=== PATIENT | male | born 1940 | race Caucasian/White ===

== ENCOUNTER → 2017-06-29 | Outpatient (CLI) | payer MEDICARE ==
[2017-06-29 08:16] LABS: Basophils # (A) 0.1 k/uL (0-0.2); Basophils % (A) 1 %; CH 31.1; CHCM 33.1; Eosinophils # (A) 0.3 k/uL (0-0.7); Eosinophils % (A) 4 %; HCT 48.9 % (39.0-53.0); HDW 2.58; HGB 16.4 gm/dL (13.0-17.5); Luc # (Auto) 0.15; Luc % (Auto) 2; Lymphocytes # (A) 1.9 k/uL (1.0-4.8); Lymphocytes % (A) 24 %; MCH 31.8 pg (25.0-35.0); MCHC 33.6 g/dL (31.0-37.0); MCV 94.5 fL (80.0-100.0); Monocytes # (A) 0.6 k/uL (0-1.0); Monocytes % (A) 7 %; Neutrophils % (A) 62 %; RBC 5.18 m/uL (4.30-5.90); RDW 14.3 % (11.5-15.5); WBC (Perox) 8.43
[2017-06-29 09:00] LABS: ALT 39 U/L (21-72); AST 22 U/L (17-59); Alkaline Phosphatase 55 U/L (38-126); Anion Gap 10 mmol/L; Blood Urea Nitrogen 20 mg/dL (9-20); Calcium 9.5 mg/dL (8.4-10.2); Carbon Dioxide 28 mmol/L (22-30); Chloride 100 mmol/L (98-107); Cholesterol 138 mg/dL (<200); Glucose 128 mg/dL (74-99); HDL Cholesterol 45 mg/dL (40-60); Non-African American GFR(MDRD) 59 (>60 ml/min/1.73 sqM); Potassium 4.5 mmol/L (3.5-5.1); Sodium 138 mmol/L (137-145); Total Bilirubin 1.2 mg/dL (0.2-1.3); Total Protein 6.9 g/dL (6.3-8.2)
[2017-06-29 11:55] LABS: Hemoglobin A1C 5.9 % (4.2-6.1)
== END | disposition home or self-care (01) ==
LOC: LABWHC1 07:54
PROVIDERS: ATTEND Internal Medicine
DX: E78.5 Hyperlipidemia, unspecified (principal); I10 Essential (primary) hypertension; E11.9 Type 2 diabetes mellitus without complications; E13.9 Other specified diabetes mellitus without complications; N19 Unspecified kidney failure; Z12.5 Encounter for screening for malignant neoplasm of prostate
CPT/HCPCS: 84439; 80061; 80053; 83036; 84443; 85025; 36415; G0103

== ENCOUNTER → 2018-09-26 | Outpatient (CLI) | payer MEDICARE ==
[2018-09-26 10:15] LABS: Anisocytosis Slight; Basophils # (A) 0.1 k/uL (0-0.2); Basophils % (A) 1 %; Eosinophils # (A) 0.2 k/uL (0-0.7); Eosinophils % (A) 3 %; HCT 45.5 % (39.0-53.0); HGB 16.1 gm/dL (13.0-17.5); Lymphocytes # (A) 1.7 k/uL (1.0-4.8); Lymphocytes % (A) 22 %; MCH 33.9 pg (25.0-35.0); MCHC 35.3 g/dL (31.0-37.0); MCV 96.1 fL (80.0-100.0); Monocytes # (A) 0.6 k/uL (0-1.0); Monocytes % (A) 7 %; Neutrophils # (A) 5.3 k/uL (1.3-7.7); Neutrophils % (A) 66 %; Platelet Count 483 k/uL (150-450); RBC 4.73 m/uL (4.30-5.90)
[2018-09-26 16:03] LABS: Albumin 4.4 g/dL (3.80-4.90); Albumin/Globulin Ratio 2.59 (1.20-2.10); Anion Gap 7.8 mmol/L (4.00-12.00); Calcium 9.9 mg/dL (8.7-10.3); Carbon Dioxide 32.2 mmol/L (21.6-31.8); Globulin 1.7 g/dL (2.1-3.7); LDL Cholesterol,Calculated 75.4 mg/dL (0.0-131.0); Potassium 4.5 mmol/L (3.5-5.5); Total Bilirubin 1.1 mg/dL (0.3-1.2); Total Protein 6.1 g/dL (6.2-8.2); VLDL Calculation 18.6 mg/dL (5.00-40.00)
[2018-09-26 16:11] LABS: T4, Free (Free Thyroxine) 1.2 ng/dL (0.80-1.80)
[2018-09-26 17:28] LABS: Hemoglobin A1C 5.8 % (4.0-6.0)
== END | disposition home or self-care (01) ==
LOC: LABWHC1 08:18
PROVIDERS: ATTEND Internal Medicine
DX: Z00.00 Encounter for general adult medical examination without abnormal findings (principal); E11.9 Type 2 diabetes mellitus without complications; I10 Essential (primary) hypertension
CPT/HCPCS: 84439; 80061; 80053; 84443; 85025; 83036; 36415; G0103

== ENCOUNTER → 2019-10-03 | Outpatient (CLI) | payer MEDICARE ==
[2019-10-03 08:41] LABS: Basophils # (A) 0.1 k/uL (0-0.2); Basophils % (A) 1 %; Eosinophils # (A) 0.3 k/uL (0-0.7); Eosinophils % (A) 4 %; HCT 47.8 % (39.0-53.0); HGB 15.7 gm/dL (13.0-17.5); Lymphocytes % (A) 26 %; MCH 31.3 pg (25.0-35.0); MCHC 32.9 g/dL (31.0-37.0); Mean Platelet Volume 7.8; Monocytes # (A) 0.6 k/uL (0-1.0); Monocytes % (A) 7 %; Neutrophils # (A) 4.6 k/uL (1.3-7.7); Neutrophils % (A) 59 %; Platelet Count 487 k/uL (150-450); RBC 5.03 m/uL (4.30-5.90); RDW 13.4 % (11.5-15.5); WBC 7.7 k/uL (3.8-10.6)
[2019-10-03 16:13] LABS: African American GFR (CKD) 65.8 (60.0-200.0); Albumin 4.6 g/dL (3.80-4.90); Albumin/Globulin Ratio 2.71 (1.60-3.17); Anion Gap 8.4 mmol/L (4.00-12.00); BUN/Creat Ratio 17.5 Ratio (12.00-20.00); Calcium 9.6 mg/dL (8.7-10.3); Carbon Dioxide 30.6 mmol/L (21.6-31.8); Chol/HDL Ratio 2.94; Globulin 1.7 g/dL (1.6-3.3); LDL Cholesterol,Calculated 72.2 mg/dL (0.0-131.0); Non-African American GFR(CKD) 56.8 (60.0-200.0); Potassium 4.1 mmol/L (3.5-5.5); Total Protein 6.3 g/dL (6.2-8.2); VLDL Calculation 18.8 mg/dL (5.00-40.00)
[2019-10-03 16:21] LABS: T4, Free (Free Thyroxine) 1.4 ng/dL (0.80-1.80)
== END | disposition home or self-care (01) ==
LOC: LABWHC1 07:35
PROVIDERS: ATTEND Internal Medicine
DX: I10 Essential (primary) hypertension (principal); E78.5 Hyperlipidemia, unspecified
CPT/HCPCS: 36415; 80053; 80061; 84439; 84443; 85025

== ENCOUNTER → 2021-05-06 | Outpatient (CLI) | payer MEDICARE ==
[2021-05-06 16:34] LABS: Basophils # (A) 0.11 X 10*3/uL (0.00-0.10); Basophils % (A) 1.4 %; Eosinophils # (A) 0.47 X 10*3/uL (0.04-0.35); Eosinophils % (A) 5.9 %; HCT 48.1 % (39.6-50.0); HGB 15.4 g/dL (13.0-17.0); Lymphocytes # (A) 1.95 X 10*3/uL (0.90-5.00); Lymphocytes % (A) 24.3 %; MCH 29.9 pg (27.0-32.0); MCV 93.4 fL (80.0-97.0); Mean Platelet Volume 9.8 fL (9.5-12.2); Monocytes # (A) 0.71 X 10*3/uL (0.20-1.00); Monocytes % (A) 8.8 %; Neutrophils # (A) 4.76 X 10*3/uL (1.80-7.70); Neutrophils % (A) 59.2 %; Platelet Count 502 X 10*3/uL (140-440); RBC 5.15 X 10*6/uL (4.40-5.60); RDW 14.2 % (11.5-14.5); WBC 8.03 X 10*3/uL (4.50-10.00)
[2021-05-06 21:07] LABS: African American GFR (CKD) 58.9 (60.0-200.0); Albumin 4.3 g/dL (3.80-4.90); Albumin/Globulin Ratio 1.95 (1.60-3.17); Anion Gap 9.7 mmol/L (4.00-12.00); BUN/Creat Ratio 16.92 Ratio (12.00-20.00); Calcium 9.5 mg/dL (8.7-10.3); Carbon Dioxide 31.3 mmol/L (21.6-31.8); Chol/HDL Ratio 3.61; Globulin 2.2 g/dL (1.6-3.3); LDL Cholesterol,Calculated 72.6 mg/dL (0.0-131.0); Non-African American GFR(CKD) 50.8 (60.0-200.0); Potassium 4.5 mmol/L (3.5-5.5); Total Bilirubin 0.9 mg/dL (0.3-1.2); Total Protein 6.5 g/dL (6.2-8.2); VLDL Calculation 26.4 mg/dL (5.00-40.00)
[2021-05-06 21:15] LABS: PSA Annual Screen 1.4 ng/mL (0.0-4.0); T4, Free (Free Thyroxine) 1.4 ng/dL (0.80-1.80)
== END | disposition home or self-care (01) ==
LOC: LABWHC1 08:03
PROVIDERS: ATTEND Internal Medicine
DX: Z00.00 Encounter for general adult medical examination without abnormal findings (principal); Z12.5 Encounter for screening for malignant neoplasm of prostate; E78.00 Pure hypercholesterolemia, unspecified; I10 Essential (primary) hypertension; M19.90 Unspecified osteoarthritis, unspecified site; C85.99 Non-Hodgkin lymphoma, unspecified, extranodal and solid organ sites
CPT/HCPCS: 84439; 80061; 80053; 84443; 85025; 36415; G0103

== ENCOUNTER → 2022-05-18 | Outpatient (CLI) | payer MEDICARE ==
[2022-05-18 11:06] LABS: ALT 15 U/L (10-49); AST 18 U/L (14-35); African American GFR (CKD) 58.5 (60.0-200.0); Albumin 4.5 g/dL (3.8-4.9); Albumin/Globulin Ratio 1.96 (1.60-3.17); Alkaline Phosphatase 58 U/L (41-126); BUN/Creat Ratio 14.23 Ratio (12.00-20.00); Blood Urea Nitrogen 18.5 mg/dL (9.0-27.0); Calcium 9.9 mg/dL (8.7-10.3); Carbon Dioxide 29.7 mmol/L (20.0-27.5); Chloride 98 mmol/L (96-109); Chol/HDL Ratio 3.28 Ratio; Globulin 2.3 g/dL (1.6-3.3); Glucose 122 mg/dL (70-110); Non-African American GFR(CKD) 50.5 (60.0-200.0); Potassium 4.6 mmol/L (3.5-5.5); Sodium 139 mmol/L (135-145); Total Protein 6.8 g/dL (6.2-8.2)
[2022-05-18 11:45] LABS: Basophils # (A) 0.13 X 10*3/uL (0.00-0.10); Basophils % (A) 1.5 %; Eosinophils # (A) 0.44 X 10*3/uL (0.04-0.35); Eosinophils % (A) 5.1 %; HCT 47.3 % (39.6-50.0); HGB 15.5 g/dL (13.0-17.0); Immature Grans, Automated 0.3 %; Lymphocytes # (A) 2.09 X 10*3/uL (0.90-5.00); Lymphocytes % (A) 24.2 %; MCH 30.1 pg (27.0-32.0); MCHC 32.8 g/dL (32.0-37.0); MCV 91.8 fL (80.0-97.0); Mean Platelet Volume 9.7 fL (9.5-12.2); Monocytes # (A) 0.87 X 10*3/uL (0.20-1.00); Monocytes % (A) 10.1 %; NRBC Per 100 WBC 0 /100 WBCS (0.0-0.0); Neutrophils # (A) 5.06 X 10*3/uL (1.80-7.70); Neutrophils % (A) 58.8 %; Platelet Count 501 X 10*3/uL (140-440); RBC 5.15 X 10*6/uL (4.40-5.60); RDW 13.7 % (11.5-14.5); WBC 8.62 X 10*3/uL (4.50-10.00)
== END | disposition home or self-care (01) ==
LOC: LABWHC1 07:21
PROVIDERS: ATTEND Internal Medicine
DX: Z00.00 Encounter for general adult medical examination without abnormal findings (principal); E78.1 Pure hyperglyceridemia; I10 Essential (primary) hypertension
CPT/HCPCS: 36415; 80053; 80061; 84153; 84439; 84443; 85025

== ENCOUNTER → 2022-08-12 | Outpatient (CLI) | payer MEDICARE | END | disposition home or self-care (01) | LOC: LABWHC1 10:21 | PROVIDERS: ATTEND Internal Medicine | DX: M10.9 Gout, unspecified (principal) | CPT/HCPCS: 36415; 84550 ==

== ENCOUNTER 2022-08-22 09:22 | Emergency (ER) | payer MEDICARE ==
--- NOTE | 2022-08-22 09:56 | ED ---
Abdominal Pain HPI - General Chief Complaint: Abdominal Pain Stated Complaint: constipation Time Seen by Provider: 08/22/22 09:39 Source: patient, RN notes reviewed Mode of arrival: ambulatory Limitations: no limitations - History of Present Illness Initial Comments: This is a 82-year-old male presenting to the ER with chief complaint of constipation. He reports he hasn't had a bowel movement in the past 7 days. He has tried taking laxative no success. He admits to passing gas and a normal appetite. He admits to taking Tylenol for his gout flare up. Denies fevers, chills, or nigthsweats. - Related Data Home Medications Medication Instructions Recorded Confirmed Aspirin 81 mg PO DAILY 02/20/14 02/24/14 Atenolol 50 mg PO BID 02/20/14 02/24/14 Pantoprazole Sodium [Protonix] 40 mg PO DAILY 02/20/14 02/24/14 Simvastatin [Zocor] 80 mg PO HS 02/20/14 02/24/14 Telmisartan/Hydrochlorothiazid 1 each PO DAILY 02/20/14 02/24/14 [Micardis Hct 80-25 mg Tablet] hydrALAZINE HCL [Apresoline] 25 mg PO DAILY 02/20/14 02/24/14 hydroCHLOROthiazide [Hydrodiuril] 25 mg PO DAILY 02/20/14 02/24/14 Allergies Allergy/AdvReac Type Severity Reaction Status Date / Time No Known Allergies Allergy Verified 08/22/22 09:32 Review of Systems ROS Statement: Those systems with pertinent positive or pertinent negative responses have been documented in the HPI. ROS Other: All systems not noted in ROS Statement are negative. Past Medical History Past Medical History: Cancer, COPD, GERD/Reflux, Hyperlipidemia, Hypertension, Prostate Disorder Additional Past Medical History / Comment(s): gout History of Any Multi-Drug Resistant Organisms: None Reported Past Surgical History: Heart Catheterization Past Anesthesia/Blood Transfusion Reactions: No Reported Reaction Past Psychological History: No Psychological Hx Reported Smoking Status: Former smoker Past Alcohol Use History: Occasional Past Drug Use History: None Reported General Exam Limitations: no limitations General appearance: alert, in no apparent distress Respiratory exam: Present: normal lung sounds bilaterally. Absent: respiratory distress, wheezes, rales, rhonchi, stridor Cardiovascular Exam: Present: regular rate, normal rhythm, normal heart sounds. Absent: systolic murmur, diastolic murmur, rubs, gallop, clicks GI/Abdominal exam: Present: soft, normal bowel sounds. Absent: distended, tenderness, guarding, rebound, rigid Neurological exam: Present: alert, oriented X3, CN II-XII intact Psychiatric exam: Present: normal affect, normal mood Course Vital Signs 08/22/22 09:24 Temperature 97.0 F L Pulse Rate 87 Respiratory 18 Rate Blood Pressure 175/91 O2 Sat by Pulse 95 Oximetry Medical Decision Making - Medical Decision Making 7-year-old presented from for abdominal issues in which she states is constipated he has no associated pain fevers chills or any other such complaints x-ray shows mild stool patient offered enema here to see if it would help patient states he read as "home and try something that is not very concerned. Again the abdomen is soft nontender will be discharged in stable condition. Disposition Clinical Impression: Constipation Disposition: HOME SELF-CARE Condition: Stable Instructions (If sedation given, give patient instructions): Constipation (ED) Additional Instructions: Please return to the Emergency Department if symptoms worsen or any other concerns. Is patient prescribed a controlled substance at d/c from ED?: No Referrals: None,Stated [REFERRING] - 1-2 days Time of Disposition: 11:10
--- NOTE | 2022-08-22 11:05 | XR ---
EXAMINATION TYPE: XR KUB DATE OF EXAM: 08/22/2022 10:18 AM INDICATION: Patient age:Male; 82 years old; Reason for study: Constipation; COMPARISON: None. TECHNIQUE: One radiographic view of the abdomen was obtained. FINDINGS: The bowel gas pattern is nonspecific without dilated loops of small or large bowel. The o sseous structures are intact. No abnormal calcifications are present. Fecal material and gas are dem onstrated throughout the colon and rectum. Multilevel disc degeneration changes throughout the spine . Stool seen within the rectum. IMPRESSION: Nonspecific bowel gas pattern without radiographic evidence for acute process.
[2022-08-22] MEDS ORDERED: NA PHOS,M-B/NA PHOS,DI-BA 133 ML ENEMA RECTAL STA (11:09)
[2022-08-22 11:27] VITALS: BP 128/78; PULSE 78; RESP 16; TEMP 98.2
== END 2022-08-22 11:25 | disposition home or self-care (01) ==
LOC: EC 09:22
DX: K59.00 Constipation, unspecified (principal); J44.9 Chronic obstructive pulmonary disease, unspecified; K21.9 Gastro-esophageal reflux disease without esophagitis; E78.5 Hyperlipidemia, unspecified; I10 Essential (primary) hypertension; Z87.891 Personal history of nicotine dependence; Z79.82 Long term (current) use of aspirin
CPT/HCPCS: 74018; 99284

== ENCOUNTER 2022-09-02 08:17 | Emergency (ER) | payer MEDICARE ==
[2022-09-02 08:24] VITALS: TEMP 97.7
[2022-09-02] MEDS ORDERED: SODIUM CHLORIDE 0.9% 500 ML 500 ML IV STA (08:31)
--- NOTE | 2022-09-02 08:48 | ED ---
Weakness HPI - General Chief complaint: Weakness Stated complaint: weakness Time Seen by Provider: 09/02/22 08:27 Source: patient, RN notes reviewed Mode of arrival: ambulatory Limitations: no limitations - History of Present Illness Initial comments: 82-year-old male presents emergency Department chief complaint of generalized weakness. Patient states she's not fell over the last several weeks. He states initially started with some feet pain, swelling his feet and which causes PCP for gout medication. Patient is to take up to weeks the neck help. He states he slowly developed constipation with decreased oral intake he states that he is a more weak at times. Patient states he was seen in the ER for constipation did receive Fleet enema which of this did help and he felt better for a few days but states he can has worsening symptoms. He denies any medication changes denies any chest pain shortness of breath headache dizziness at this time. - Related Data Home Medications Medication Instructions Recorded Confirmed Aspirin 81 mg PO DAILY 02/20/14 02/24/14 Atenolol 50 mg PO BID 02/20/14 02/24/14 Pantoprazole Sodium [Protonix] 40 mg PO DAILY 02/20/14 02/24/14 Simvastatin [Zocor] 80 mg PO HS 02/20/14 02/24/14 Telmisartan/Hydrochlorothiazid 1 each PO DAILY 02/20/14 02/24/14 [Micardis Hct 80-25 mg Tablet] hydrALAZINE HCL [Apresoline] 25 mg PO DAILY 02/20/14 02/24/14 hydroCHLOROthiazide [Hydrodiuril] 25 mg PO DAILY 02/20/14 02/24/14 Previous Rx's Medication Instructions Recorded Sennosides-Docusate Sodium 1 tab PO BID #20 tablet 09/02/22 [Senokot-S] Allergies Allergy/AdvReac Type Severity Reaction Status Date / Time No Known Allergies Allergy Verified 09/02/22 08:23 Review of Systems ROS Statement: Those systems with pertinent positive or pertinent negative responses have been documented in the HPI. ROS Other: All systems not noted in ROS Statement are negative. Past Medical History Past Medical History: Cancer, COPD, GERD/Reflux, Hyperlipidemia, Hypertension, Prostate Disorder Additional Past Medical History / Comment(s): gout History of Any Multi-Drug Resistant Organisms: None Reported Past Surgical History: Heart Catheterization Past Anesthesia/Blood Transfusion Reactions: No Reported Reaction Past Psychological History: No Psychological Hx Reported Smoking Status: Former smoker Past Alcohol Use History: Occasional Past Drug Use History: None Reported General Exam Limitations: no limitations General appearance: alert, in no apparent distress Head exam: Present: atraumatic, normocephalic, normal inspection Eye exam: Present: normal appearance, PERRL, EOMI. Absent: scleral icterus, conjunctival injection, periorbital swelling ENT exam: Present: normal exam, normal oropharynx, mucous membranes moist Neck exam: Present: normal inspection, full ROM. Absent: tenderness, meningismus, lymphadenopathy Respiratory exam: Present: normal lung sounds bilaterally. Absent: respiratory distress, wheezes, rales, rhonchi, stridor Cardiovascular Exam: Present: regular rate, normal rhythm, normal heart sounds. Absent: systolic murmur, diastolic murmur, rubs, gallop, clicks GI/Abdominal exam: Present: soft, normal bowel sounds. Absent: distended, tenderness, guarding, rebound, rigid Course Vital Signs 09/02/22 09/02/22 09/02/22 08:19 09:36 09:46 Temperature 97.7 F Pulse Rate 74 74 67 Respiratory 18 18 20 Rate Blood Pressure 146/87 182/97 O2 Sat by Pulse 97 98 98 Oximetry EKG Findings - EKG Comments: EKG Findings:: EKG performed at 8:46 sinus rhythm first-degree AV block with a rate of 71 PR226 QRS 14 QT/QTC 427/450 - EKG Results: EKG: interpreted by ERMD Medical Decision Making - Medical Decision Making CT shows large hiatal hernia with some thickening recommends EGD, labs reveal mild high blood magnesium and magnesium was given. Patient does have some mild constipation. Patient advised to follow-up with EGD, take oral magnesium, provided softener laxative return parameters were discussed. - Lab Data Result diagrams: 09/02/22 08:50 09/02/22 08:50 Lab Results 09/02/22 09/02/22 09/02/22 Range/Units 08:50 08:50 08:50 WBC 10.4 (3.8-10.6) k/uL RBC 4.99 (4.30-5.90) m/uL Hgb 15.7 (13.0-17.5) gm/dL Hct 45.2 (39.0-53.0) % MCV 90.6 (80.0-100.0) fL MCH 31.4 (25.0-35.0) pg MCHC 34.7 (31.0-37.0) g/dL RDW 13.7 (11.5-15.5) % Plt Count 590 H (150-450) k/uL MPV 7.6 Neutrophils % 79 % Lymphocytes % 11 % Monocytes % 7 % Eosinophils % 1 % Basophils % 0 % Neutrophils # 8.2 H (1.3-7.7) k/uL Lymphocytes # 1.2 (1.0-4.8) k/uL Monocytes # 0.8 (0-1.0) k/uL Eosinophils # 0.1 (0-0.7) k/uL Basophils # 0.1 (0-0.2) k/uL PT 12.1 H (9.0-12.0) sec INR 1.1 (<1.2) APTT 27.8 (22.0-30.0) sec Sodium 132 L (137-145) mmol/L Potassium 4.0 (3.5-5.1) mmol/L Chloride 96 L (98-107) mmol/L Carbon Dioxide 26 (22-30) mmol/L Anion Gap 10 mmol/L BUN 20 (9-20) mg/dL Creatinine 1.26 H (0.66-1.25) mg/dL Est GFR (CKD-EPI)AfAm 61 (>60 ml/min/1.73 sqM) Est GFR (CKD-EPI)NonAf 52 (>60 ml/min/1.73 sqM) Glucose 148 H (74-99) mg/dL Plasma Lactic Acid Nikhil (0.7-2.0) mmol/L Calcium 8.9 (8.4-10.2) mg/dL Magnesium 1.3 L (1.6-2.3) mg/dL Total Bilirubin 1.2 (0.2-1.3) mg/dL AST 32 (17-59) U/L ALT 30 (4-49) U/L Alkaline Phosphatase 126 (38-126) U/L Troponin I (0.000-0.034) ng/mL Total Protein 6.5 (6.3-8.2) g/dL Albumin 4.2 (3.5-5.0) g/dL Urine Color Urine Appearance (Clear) Urine pH (5.0-8.0) Ur Specific [place] (1.001-1.035) Urine Protein (Negative) Urine Glucose (UA) (Negative) Urine Ketones (Negative) Urine Blood (Negative) Urine Nitrite (Negative) Urine Bilirubin (Negative) Urine Urobilinogen (<2.0) mg/dL Ur Leukocyte Esterase (Negative) 09/02/22 09/02/22 09/02/22 Range/Units 08:50 08:50 10:20 WBC (3.8-10.6) k/uL RBC (4.30-5.90) m/uL Hgb (13.0-17.5) gm/dL Hct (39.0-53.0) % MCV (80.0-100.0) fL MCH (25.0-35.0) pg MCHC (31.0-37.0) g/dL RDW (11.5-15.5) % Plt Count (150-450) k/uL MPV Neutrophils % % Lymphocytes % % Monocytes % % Eosinophils % % Basophils % % Neutrophils # (1.3-7.7) k/uL Lymphocytes # (1.0-4.8) k/uL Monocytes # (0-1.0) k/uL Eosinophils # (0-0.7) k/uL Basophils # (0-0.2) k/uL PT (9.0-12.0) sec INR (<1.2) APTT (22.0-30.0) sec Sodium (137-145) mmol/L Potassium (3.5-5.1) mmol/L Chloride (98-107) mmol/L Carbon Dioxide (22-30) mmol/L Anion Gap mmol/L BUN (9-20) mg/dL Creatinine (0.66-1.25) mg/dL Est GFR (CKD-EPI)AfAm (>60 ml/min/1.73 sqM) Est GFR (CKD-EPI)NonAf (>60 ml/min/1.73 sqM) Glucose (74-99) mg/dL Plasma Lactic Acid Nikhil 1.5 (0.7-2.0) mmol/L Calcium (8.4-10.2) mg/dL Magnesium (1.6-2.3) mg/dL Total Bilirubin (0.2-1.3) mg/dL AST (17-59) U/L ALT (4-49) U/L Alkaline Phosphatase (38-126) U/L Troponin I <0.012 (0.000-0.034) ng/mL Total Protein (6.3-8.2) g/dL Albumin (3.5-5.0) g/dL Urine Color Yellow Urine Appearance Clear (Clear) Urine pH 6.5 (5.0-8.0) Ur Specific [place] 1.017 (1.001-1.035) Urine Protein Trace H (Negative) Urine Glucose (UA) Negative (Negative) Urine Ketones Negative (Negative) Urine Blood Negative (Negative) Urine Nitrite Negative (Negative) Urine Bilirubin Negative (Negative) Urine Urobilinogen 2.0 (<2.0) mg/dL Ur Leukocyte Esterase Negative (Negative) Disposition Clinical Impression: Constipation, Hiatal hernia, Hypomagnesemia, Fatigue Disposition: HOME SELF-CARE Condition: Stable Instructions (If sedation given, give patient instructions): Hiatal Hernia (ED) Additional Instructions: please follow-up with GI or surgery for EGD. Please return to the Emergency Department if symptoms worsen or any other concerns. Prescriptions: Sennosides-Docusate Sodium [Senokot-S] 1 tab PO BID #20 tablet Is patient prescribed a controlled substance at d/c from ED?: No Referrals: Olive Cardoza MD [Primary Care Provider] - 1-2 days Saeid Hillman MD [STAFF PHYSICIAN] - 1-2 days Jojo Mann MD [STAFF PHYSICIAN] - 1-2 days Time of Disposition: 11:13
[2022-09-02 09:00] LABS: Basophils # (A) 0.1 k/uL (0-0.2); Basophils % (A) 0 %; Eosinophils # (A) 0.1 k/uL (0-0.7); Eosinophils % (A) 1 %; HCT 45.2 % (39.0-53.0); HGB 15.7 gm/dL (13.0-17.5); Lymphocytes # (A) 1.2 k/uL (1.0-4.8); Lymphocytes % (A) 11 %; MCH 31.4 pg (25.0-35.0); MCHC 34.7 g/dL (31.0-37.0); MCV 90.6 fL (80.0-100.0); Mean Platelet Volume 7.6; Monocytes # (A) 0.8 k/uL (0-1.0); Monocytes % (A) 7 %; Neutrophils # (A) 8.2 k/uL (1.3-7.7); Neutrophils % (A) 79 %; Platelet Count 590 k/uL (150-450); RBC 4.99 m/uL (4.30-5.90); RDW 13.7 % (11.5-15.5); WBC 10.4 k/uL (3.8-10.6)
[2022-09-02 09:08] LABS: INR 1.1 (<1.2); Partial Thromboplastin Time 27.8 sec (22.0-30.0); Prothrombin Time 12.1 sec (9.0-12.0)
[2022-09-02 09:14] LABS: Albumin 4.2 g/dL (3.5-5.0); Calcium 8.9 mg/dL (8.4-10.2); Magnesium 1.3 mg/dL (1.6-2.3); Total Bilirubin 1.2 mg/dL (0.2-1.3); Total Protein 6.5 g/dL (6.3-8.2)
[2022-09-02] MEDS ORDERED: MAGNESIUM OXIDE 400 MG TAB PO STA (09:24)
--- NOTE | 2022-09-02 09:40 | CT ---
EXAMINATION TYPE: CT abdomen pelvis wo con DATE OF EXAM: 09/02/2022 COMPARISON: Radiograph 08/22/2022 and PET/CT 09/12/2014 HISTORY: 82-year-old male patient, Weakness, Constipation x [address] DLP: 713.7 mGycm. Automated exposure control for dose reduction was used. TECHNIQUE: Contiguous axial scanning of the abdomen and pelvis without IV contrast. Coronal and sagit fredy reconstructions performed. FINDINGS: Heart with mild anterior pericardial fluid. Extensive coronary artery calcifications are present and aren't markers for coronary artery disease. 6 mm nodule at the right base unchanged from 2014 suggesting benign etiology. Mild interstitial albright es of the lower lungs could represent atelectasis or mild fibrosis. Redemonstrated large hiatal hernia. This involves three fourths of the stomach in the lower chest. Ei ther mural-based thickening or prominent redundancy of the gastric wall giving the appearance of wall thickening, for example, axial image 1. Mildly lobulated benign cyst mid hepatic dome measuring up to 4.0 cm. Some calcifications and/or surg ical material in the gallbladder fossa region is similar. Adrenal glands, atrophic right kidney, spleen, and atrophic pancreas show no gross abnormality. A 1.6 cm cortical hypodensity anterior mid to lower pole left kidney is larger from 9 mm, previously. Suspect a benign cyst. A 1.3 cm cortical hypodensity lower pole left kidney larger from 1.1 cm, susp ected benign cyst. There is some indeterminate intermediate attenuating cortical lesion lower pole le ft kidney measuring 1.1 cm. This may represent a hemorrhagic or proteinaceous cyst, new from 2014 and can be reassessed in 6 months. Moderate atherosclerotic calcifications abdominal aorta and iliac arteries. Moderate to severe focal stenosis origin of the right common iliac artery. Severe focal stenosis origin of the left common cinda ac artery. 1 No dilated small bowel, free fluid, or free air. No mesenteric or retroperitoneal lymphadenopathy see n. Appendix not well seen. No secondary findings of acute appendicitis in the right lower quadrant. There is mild to moderate stool burden. Left-sided colonic diverticulosis, greatest in the sigmoid co brice. No pericolonic inflammatory change seen. Bladder partially distended. The prostate gland is enlarged at 6.0 cm, relatively unchanged. Left-margarita ed pelvic phlebolith. There is a new small to moderate-sized fat-containing direct right inguinal her solomon measuring 4.5 x 5.1 cm. Otherwise, no abnormal fluid collection in the pelvis or pelvic lymphaden opathy. 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 Moderate degenerative disc disease L4-L5. Mild sup erior endplate deformity L2 is age indeterminate, likely chronic given the lack of any surrounding sw elling. Correlate for any focal pain at this level. IMPRESSION: 1. Redemonstrated large hiatal hernia involving three fourths of the stomach in the lower chest. The re is either mural-based thickening versus prominent redundancy of the gastric wall giving the appear ance of masslike thickening (axial image 1). Correlate with patient's symptoms and consider direct vi sualization to exclude a neoplastic etiology. 2. Cortical lesions within the left kidney, some of which represent cysts increased in size from 201 4 and measuring up to 1.6 cm. A 1.1 cm indeterminate lesion at the left lower pole could represent a hemorrhagic/proteinaceous cyst. New from 2013. 6 month follow-up CT to ensure stability. 3. Mild to moderate stool burden. Left-sided clonic diverticulosis, greatest in the sigmoid colon. N o evidence for bowel obstruction or acute diverticulitis. 4. New [id number] sized right-sided direct inguinal hernia containing fat. 5. Atherosclerotic calcifications abdominal aorta and iliac arteries. 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 6. Redemonstrated bilateral L5 pars defects with grade 2, nearly grade 3 anterolisthesis of L5-S1.
[2022-09-02 09:47] VITALS: PULSE 67
[2022-09-02 10:46] LABS: Appearance,Urine Clear (Clear); Bilirubin,Urine Negative (Negative); Blood,Urine Negative (Negative); Color,Urine Yellow; Glucose,Urine (UA) Negative (Negative); Ketones,Urine Negative (Negative); Leukocyte Esterase,Urine Negative (Negative); Nitrite,Urine Negative (Negative); PH, Urine 6.5 (5.0-8.0); Protein,Urine Trace (Negative); Specific Gravity,Urine 1.017 (1.001-1.035)
[2022-09-02 11:37] VITALS: BP 176/90; RESP 18
[2022-09-02 16:32] LABS: T4, Free (Free Thyroxine) 1.47 ng/dL (0.78-2.19)
== END 2022-09-02 11:37 | disposition home or self-care (01) ==
LOC: EC 08:17
DX: K44.9 Diaphragmatic hernia without obstruction or gangrene (principal); E83.42 Hypomagnesemia; J44.9 Chronic obstructive pulmonary disease, unspecified; K21.9 Gastro-esophageal reflux disease without esophagitis; I10 Essential (primary) hypertension; E78.5 Hyperlipidemia, unspecified; Z87.891 Personal history of nicotine dependence; Z79.82 Long term (current) use of aspirin; Z79.83 Long term (current) use of bisphosphonates; Z79.810 Long term (current) use of selective estrogen receptor modulators (SERMs); Z79.02 Long term (current) use of antithrombotics/antiplatelets; Z79.84 Long term (current) use of oral hypoglycemic drugs
CPT/HCPCS: 36415; 74176; 80053; 81003; 83605; 83735; 84439; 84443; 84484; 85025; 85610; 85730; 93005; 96360; 96361; 99285

== ENCOUNTER 2022-09-11 08:44 | Emergency (ER) | payer MEDICARE ==
[2022-09-11 08:59] VITALS: BP 149/84; PULSE 70; TEMP 96
--- NOTE | 2022-09-11 09:50 | ED ---
General Adult HPI - General Chief complaint: Recheck/Abnormal Lab/Rx Stated complaint: Loss of Appetite,Weakness Time Seen by Provider: 09/11/22 09:06 Source: patient Mode of arrival: ambulatory Limitations: no limitations - History of Present Illness Initial comments: Dictation was produced using [employer] dictation software. please excuse any gramma tical, word or spelling errors. Chief Complaint: 82-year-old male presents emergency department for constipation generalized weakness History of Present Illness: Is 82-year-old male who presented to the emergency department last week for the same complaint. He had extensive workup and ultimately ended up being discharged. Patient states that he has very abnormal bowel movements and doesn't have a bowel movement as well as he takes laxative medications. Patient also feeling generally weak. Patient has a boil with his primary care doctor however was unable to weight 3 more days for the appointment. Patient denies any constitutional symptoms. The ROS documented in this emergency department record has been reviewed and confirmed by me. Those systems with pertinent positive or negative responses have been documented in the HPI. All other systems are other negative and/or noncontributory. PHYSICAL EXAM: General Impression: Alert and oriented x3, not in acute distress HEENT: Normocephalic atraumatic, extra-ocular movements intact, pupils equal and reactive to light bilaterally, mucous membranes moist. Cardiovascular: Heart regular rate and rhythm Chest: Able to complete full sentences, no retractions, no tachypnea Abdomen: abdomen soft, non-tender, non-distended, no organomegaly Musculoskeletal: Pulses present and equal in all extremities, no peripheral edema Motor: no focal deficits noted Neurological: CN II-XII 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, no focal motor or sensory deficits noted Skin: Intact with no visualized rashes Psych: Normal affect and mood ED course: 82-year-old well-appearing male presents emergency department for generalized weakness and reported constipation. He states that he had a bowel movement within the last 24 hours after having taken laxative pills. Physical examination is benign. Nursing notes and chart review was performed Laboratory evaluation obtained. CBC unremarkable. Sodium shows mild decrease at 1:30. Urinalysis is negative. 4 panel viral PCR is negative. Acute abdominal series shows nonspecific abdominal changes. X-ray was suspicious for pneumothorax. Computed tomography scan of the chest ordered showing no pneumot horax. Patient observed in the emergency department for 3 hours and 30 minutes. Reevaluated at bedside at 12:15 PM onto be in stable medical condition. Patient be discharged. My EKG interpretation: Ventricular rate 62, sinus rhythm,. O2 47, QS 105, QTc 446. No ND prolongation, no QTC prolongation, no ST or T-wave changes noted. EKG compared to 09/02/2022 showing no changes. Overall, this EKG is unremarkable Critical Care: no Critical Care time: n/a - Related Data Home Medications Medication Instructions Recorded Confirmed Aspirin 81 mg PO DAILY 02/20/14 09/11/22 Atenolol 50 mg PO BID 02/20/14 09/11/22 Pantoprazole Sodium [Protonix] 40 mg PO BID 02/20/14 09/11/22 Simvastatin [Zocor] 80 mg PO HS 02/20/14 09/11/22 hydrALAZINE HCL [Apresoline] 25 mg PO TID 02/20/14 09/11/22 hydroCHLOROthiazide [Hydrodiuril] 25 mg PO DAILY 02/20/14 09/11/22 Acetaminophen Tab [Tylenol Tab] 500 - 1,000 mg PO Q6H PRN 09/11/22 09/11/22 Losartan Potassium [Cozaar] 100 mg PO DAILY 09/11/22 09/11/22 Multivit-Min/FA/Lycopen/Lutein 1 tab PO DAILY 09/11/22 09/11/22 [Centrum Silver Men Tablet] Sennosides [Ex-Lax Maximum 25 - 50 mg PO BID PRN 09/11/22 09/11/22 Strength] Vit C/E/Zn/Coppr/Lutein/Zeaxan 1 cap PO DAILY 09/11/22 09/11/22 [Preservision Areds 2 Softgel] Allergies Allergy/AdvReac Type Severity Reaction Status Date / Time No Known Allergies Allergy Verified 09/11/22 11:17 Review of Systems ROS Statement: Those systems with pertinent positive or pertinent negative responses have been documented in the HPI. ROS Other: All systems not noted in ROS Statement are negative. Past Medical History Past Medical History: Cancer, COPD, GERD/Reflux, Hyperlipidemia, Hypertension, Prostate Disorder Additional Past Medical History / Comment(s): gout History of Any Multi-Drug Resistant Organisms: None Reported Past Surgical History: Heart Catheterization Past Anesthesia/Blood Transfusion Reactions: No Reported Reaction Past Psychological History: No Psychological Hx Reported Smoking Status: Former smoker Past Alcohol Use History: Occasional Past Drug Use History: None Reported General Exam Limitations: no limitations Course Vital Signs 09/11/22 08:56 Temperature 96 F L Pulse Rate 70 Respiratory 18 Rate Blood Pressure 149/84 O2 Sat by Pulse 98 Oximetry Medical Decision Making - Medical Decision Making Patient states that he is too weak to go home however she is well-appearing and does not show any signs of significant weakness. Patient requests to be evaluated for [facility] or [facility] placement. Susie who is our sample case porter nurse will help arrange evaluation for home care to be evaluated for nursing home facility or [facility]. - Lab Data Result diagrams: 09/11/22 09:40 09/11/22 09:40 Lab Results 09/11/22 09/11/22 09/11/22 Range/Units 09:40 09:40 09:40 WBC 9.5 (3.8-10.6) k/uL RBC 4.93 (4.30-5.90) m/uL Hgb 15.3 (13.0-17.5) gm/dL Hct 44.5 (39.0-53.0) % MCV 90.3 (80.0-100.0) fL MCH 31.1 (25.0-35.0) pg MCHC 34.4 (31.0-37.0) g/dL RDW 13.8 (11.5-15.5) % Plt Count 596 H (150-450) k/uL MPV 7.8 Neutrophils % 72 % Lymphocytes % 17 % Monocytes % 7 % Eosinophils % 1 % Basophils % 1 % Neutrophils # 6.8 (1.3-7.7) k/uL Lymphocytes # 1.6 (1.0-4.8) k/uL Monocytes # 0.7 (0-1.0) k/uL Eosinophils # 0.1 (0-0.7) k/uL Basophils # 0.1 (0-0.2) k/uL Sodium 130 L (137-145) mmol/L Potassium 3.9 (3.5-5.1) mmol/L Chloride 94 L (98-107) mmol/L Carbon Dioxide 28 (22-30) mmol/L Anion Gap 8 mmol/L BUN 23 H (9-20) mg/dL Creatinine 1.27 H (0.66-1.25) mg/dL Est GFR (CKD-EPI)AfAm 60 (>60 ml/min/1.73 sqM) Est GFR (CKD-EPI)NonAf 52 (>60 ml/min/1.73 sqM) Glucose 147 H (74-99) mg/dL Plasma Lactic Acid Nikhil 1.4 (0.7-2.0) mmol/L Calcium 9.3 (8.4-10.2) mg/dL Magnesium 1.7 (1.6-2.3) mg/dL Total Bilirubin 1.1 (0.2-1.3) mg/dL AST 31 (17-59) U/L ALT 29 (4-49) U/L Alkaline Phosphatase 110 (38-126) U/L Total Protein 6.5 (6.3-8.2) g/dL Albumin 4.2 (3.5-5.0) g/dL Urine Color Urine Appearance (Clear) Urine pH (5.0-8.0) Ur Specific [place] (1.001-1.035) Urine Protein (Negative) Urine Glucose (UA) (Negative) Urine Ketones (Negative) Urine Blood (Negative) Urine Nitrite (Negative) Urine Bilirubin (Negative) Urine Urobilinogen (<2.0) mg/dL Ur Leukocyte Esterase (Negative) Influenza Type A (PCR) (Not Detectd) Influenza Type B (PCR) (Not Detectd) RSV (PCR) (Not Detectd) SARS-CoV-2 (PCR) (Not Detectd) 09/11/22 09/11/22 Range/Units 09:40 10:39 WBC (3.8-10.6) k/uL RBC (4.30-5.90) m/uL Hgb (13.0-17.5) gm/dL Hct (39.0-53.0) % MCV (80.0-100.0) fL MCH (25.0-35.0) pg MCHC (31.0-37.0) g/dL RDW (11.5-15.5) % Plt Count (150-450) k/uL MPV Neutrophils % % Lymphocytes % % Monocytes % % Eosinophils % % Basophils % % Neutrophils # (1.3-7.7) k/uL Lymphocytes # (1.0-4.8) k/uL Monocytes # (0-1.0) k/uL Eosinophils # (0-0.7) k/uL Basophils # (0-0.2) k/uL Sodium (137-145) mmol/L Potassium (3.5-5.1) mmol/L Chloride (98-107) mmol/L Carbon Dioxide (22-30) mmol/L Anion Gap mmol/L BUN (9-20) mg/dL Creatinine (0.66-1.25) mg/dL Est GFR (CKD-EPI)AfAm (>60 ml/min/1.73 sqM) Est GFR (CKD-EPI)NonAf (>60 ml/min/1.73 sqM) Glucose (74-99) mg/dL Plasma Lactic Acid Nikhil (0.7-2.0) mmol/L Calcium (8.4-10.2) mg/dL Magnesium (1.6-2.3) mg/dL Total Bilirubin (0.2-1.3) mg/dL AST (17-59) U/L ALT (4-49) U/L Alkaline Phosphatase (38-126) U/L Total Protein (6.3-8.2) g/dL Albumin (3.5-5.0) g/dL Urine Color Yellow Urine Appearance Clear (Clear) Urine pH 6.5 (5.0-8.0) Ur Specific [place] 1.017 (1.001-1.035) Urine Protein Trace H (Negative) Urine Glucose (UA) Negative (Negative) Urine Ketones Negative (Negative) Urine Blood Negative (Negative) Urine Nitrite Negative (Negative) Urine Bilirubin Negative (Negative) Urine Urobilinogen 2.0 (<2.0) mg/dL Ur Leukocyte Esterase Negative (Negative) Influenza Type A (PCR) Not Detected (Not Detectd) Influenza Type B (PCR) Not Detected (Not Detectd) RSV (PCR) Not Detected (Not Detectd) SARS-CoV-2 (PCR) Not Detected (Not Detectd) Disposition Clinical Impression: Weakness Disposition: HOME SELF-CARE Condition: Good Instructions (If sedation given, give patient instructions): Weakness (ED) Is patient prescribed a controlled substance at d/c from ED?: No Referrals: Olive Cardoza MD [Primary Care Provider] - 1-2 days Time of Disposition: 12:20
[2022-09-11 09:51] LABS: Basophils # (A) 0.1 k/uL (0-0.2); Basophils % (A) 1 %; Eosinophils # (A) 0.1 k/uL (0-0.7); Eosinophils % (A) 1 %; HCT 44.5 % (39.0-53.0); HGB 15.3 gm/dL (13.0-17.5); Lymphocytes # (A) 1.6 k/uL (1.0-4.8); Lymphocytes % (A) 17 %; MCH 31.1 pg (25.0-35.0); MCHC 34.4 g/dL (31.0-37.0); MCV 90.3 fL (80.0-100.0); Mean Platelet Volume 7.8; Monocytes # (A) 0.7 k/uL (0-1.0); Monocytes % (A) 7 %; Neutrophils # (A) 6.8 k/uL (1.3-7.7); Neutrophils % (A) 72 %; Platelet Count 596 k/uL (150-450); RBC 4.93 m/uL (4.30-5.90); RDW 13.8 % (11.5-15.5); WBC 9.5 k/uL (3.8-10.6)
[2022-09-11 10:07] LABS: Albumin 4.2 g/dL (3.5-5.0); Calcium 9.3 mg/dL (8.4-10.2); Total Bilirubin 1.1 mg/dL (0.2-1.3); Total Protein 6.5 g/dL (6.3-8.2)
[2022-09-11 10:11] LABS: Magnesium 1.7 mg/dL (1.6-2.3); Potassium 3.9 mmol/L (3.5-5.1)
--- NOTE | 2022-09-11 10:35 | XR ---
EXAMINATION TYPE: XR abdomen acute w cxr DATE OF EXAM: 09/11/2022 COMPARISON: None HISTORY: Change in bowel habits constipation TECHNIQUE: Acute abdominal series is performed with a frontal upright chest upright and supine views of the abdomen. FINDINGS: Heart size is normal. Pulmonary vasculature is normal. Emphysematous changes are especially noted in the right upper lung field. Pneumothorax may be difficult to exclude. Consider follow-up ch est films. No free air is under the diaphragm. No suspicious air-fluid levels or differential air-fluid levels a re within the field of view. Nonspecific bowel gas is present within small bowel loops as well as the colon. No mass effect is evident. No dilated loops of bowel are evident. No significant fecal retent ion identified. Psoas margins are normal. No organomegaly is evident. IMPRESSION: 1. Appears to be emphysematous changes in the right upper lung field. Pneumothorax may be difficult to exclude. Consider follow-up chest studies or CT. Report was called to the emergency room physician by Dr. Evans by telephone 1031 hours 09/11/2022. 2. Nonspecific abdomen changes.
[2022-09-11 10:50] LABS: Appearance,Urine Clear (Clear); Bilirubin,Urine Negative (Negative); Blood,Urine Negative (Negative); Color,Urine Yellow; Glucose,Urine (UA) Negative (Negative); Ketones,Urine Negative (Negative); Leukocyte Esterase,Urine Negative (Negative); Nitrite,Urine Negative (Negative); PH, Urine 6.5 (5.0-8.0); Protein,Urine Trace (Negative); Specific Gravity,Urine 1.017 (1.001-1.035)
[2022-09-11] MEDS ORDERED: SODIUM CHLORIDE 0.9% 1,000 ML IV STA (11:06)
--- NOTE | 2022-09-11 12:04 | CT ---
EXAMINATION TYPE: CT chest wo con DATE OF EXAM: 09/11/2022 COMPARISON: Chest CT September 04, 2014 HISTORY: Evaluated for pneumothorax, abnormal x-ray. CT DLP: 390.4 mGycm. Automated Exposure Control for Dose Reduction was Utilized. TECHNIQUE: CT scan of the thorax is performed without IV contrast. FINDINGS: LUNGS: Advanced emphysematous change in the right upper lung mimicking pneumothorax is redemonstrated . Some crossing lung tissue remains present. No pneumothorax is present. Stable partially calcified 4 .5 x 1.7 cm right midlung mass and/or masslike consolidation axial image 23. Bibasilar linear atelect asis and/or scarring is seen. Stable partially calcified 3.6 x 1.7 cm mass and/or masslike scarring l eft lung apex axial image 5. There is no pleural effusion or pneumothorax seen. The tracheobronchia l tree is patent. MEDIASTINUM: Lack of IV contrast is noted to limit evaluation for mediastinal and especially hilar ad enopathy. There are no definitive greater than 1 cm new mediastinal lymph nodes. No cardiomegaly. S table tiny Pericardial effusion is seen. Severe three-vessel coronary artery calcification is redemon strated. Large hiatal hernia and/or intrathoracic stomach is slightly more prominent from prior CT. OTHER: There is 3.8 cm thin-walled cyst in the liver axial image 57 redemonstrated on background of d iffuse fatty infiltration of liver. Multilevel spurring and vacuum disc phenomenon in the thoracic sp ine is redemonstrated. IMPRESSION: Advanced emphysematous change without pneumothorax. No suspicious new acute pulmonary pro cess.
[2022-09-11 13:00] VITALS: RESP 16
== END 2022-09-11 13:00 | disposition home or self-care (01) ==
LOC: EC 08:44
DX: R53.1 Weakness (principal); J44.9 Chronic obstructive pulmonary disease, unspecified; K21.9 Gastro-esophageal reflux disease without esophagitis; E78.5 Hyperlipidemia, unspecified; I10 Essential (primary) hypertension; Z20.822 Contact with and (suspected) exposure to COVID-19; Z87.891 Personal history of nicotine dependence; Z79.899 Other long term (current) drug therapy
CPT/HCPCS: 36415; 71250; 74022; 80053; 81003; 83605; 83735; 85025; 87636; 93005; 96360; 99285

== ENCOUNTER 2023-03-23 10:29 | Inpatient (IN) | payer MEDICARE ==
[2023-03-23] MEDS ORDERED: MECLIZINE 25 MG TAB PO STA (10:48)
--- NOTE | 2023-03-23 11:14 | ED ---
General Adult HPI - General Chief complaint: Dizziness Stated complaint: dizziness Time Seen by Provider: 03/23/23 10:40 Source: patient, RN notes reviewed, old records reviewed Mode of arrival: ambulatory Limitations: no limitations - History of Present Illness Initial comments: This is an 82-year-old male who presents emergency Department complaining of dizziness for a month. Patient states again progressively worse to the point where he feels like is given a passout and time. Patient states she's never passed out. Patient states he feels as though he has to grab onto something and he does and though he does not pass out he doesn't feel as though it improved his dizziness. Patient states he lies down he never occurs per patient denies any chest pain difficulty breathing shortness of breath. Patient denies any palpations. Patient has a headache patient denies numbness or weakness. Patient denies any other symptoms at this time. Patient initially thought was vertigo but says it continues he's thinking it might be something worse. - Related Data Home Medications Medication Instructions Recorded Confirmed Atenolol 50 mg PO BID@0800,1200 02/20/14 03/23/23 Pantoprazole Sodium [Protonix] 40 mg PO BID 02/20/14 03/23/23 Simvastatin [Zocor] 80 mg PO HS 02/20/14 03/23/23 hydrALAZINE HCL [Apresoline] 25 mg PO BID 02/20/14 03/23/23 hydroCHLOROthiazide [Hydrodiuril] 25 mg PO DAILY 02/20/14 03/23/23 Losartan Potassium [Cozaar] 100 mg PO W/LUNCH 09/11/22 03/23/23 Allergies Allergy/AdvReac Type Severity Reaction Status Date / Time No Known Allergies Allergy Verified 03/23/23 12:40 Review of Systems ROS Statement: Those systems with pertinent positive or pertinent negative responses have been documented in the HPI. ROS Other: All systems not noted in ROS Statement are negative. Past Medical History Past Medical History: Cancer, COPD, GERD/Reflux, Hyperlipidemia, Hypertension, Prostate Disorder Additional Past Medical History / Comment(s): gout History of Any Multi-Drug Resistant Organisms: None Reported Past Surgical History: Heart Catheterization Past Anesthesia/Blood Transfusion Reactions: No Reported Reaction Past Psychological History: No Psychological Hx Reported Smoking Status: Former smoker Past Alcohol Use History: Occasional Past Drug Use History: None Reported General Exam - General Exam Comments Initial Comments: GENERAL: Patient is well-developed and well-nourished. Patient is nontoxic and well- hydrated and is in mild distress. ENT: Neck is soft and supple. No significant lymphadenopathy is noted. Oropharynx is clear. Moist mucous membranes. Neck has full range of motion without eliciting any pain. EYES: The sclera were anicteric and conjunctiva were pink and moist. Extraocular movements were intact and pupils were equal round and reactive to light. Eyelids were unremarkable. PULMONARY: Unlabored respirations. Good breath sounds bilaterally. No audible rales rhonchi or wheezing was noted. CARDIOVASCULAR: There is a regular rate and rhythm without any murmurs gallops or rubs. ABDOMEN: Soft and nontender with normal bowel sounds. SKIN: Skin is clear with no lesions or rashes and otherwise unremarkable. NEUROLOGIC: Patient is alert and oriented x3. Cranial nerves II through XII are 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. Motor and sensory are also intact. Normal speech, volume and content. Symmetrical smile. Finger to nose testing was normal bilaterally MUSCULOSKELETAL: Normal extremities with adequate strength and full range of motion. No lower extremity swelling or edema. No calf tenderness. LYMPHATICS: No significant lymphadenopathy is noted PSYCHIATRIC: Normal psychiatric evaluation. Limitations: no limitations Course Vital Signs 03/23/23 03/23/23 03/23/23 10:30 10:55 12:47 Temperature 98.4 F Pulse Rate 69 64 Respiratory 20 20 Rate Blood Pressure 169/81 203/103 Blood Pressure 174/87 [Right Arm Sitting] Blood Pressure 159/82 [Right Arm Standing] Blood Pressure 167/83 [Right Arm Supine] O2 Sat by Pulse 99 98 Oximetry Medical Decision Making - Medical Decision Making EKG shows a sinus rhythm at 70 bpm MD interval is 264 QRS is 91 QT interval 418 QTC is 439. Patient's EKG shows no ST segment elevation or depression. Was pt. sent in by a medical professional or institution (, PA, TIN WHIZ MACHINE OPERATOR, urgent ca re, hospital, or senior living...) When possible be specific @ -No Did you speak to anyone other than the patient for history (EMS, parent, family, police, friend...)? What history was obtained from this source @ -No Did you review nursing and triage notes (agree or disagree)? Why? @ -I reviewed and agree with nursing and triage notes Were old charts reviewed (outside hosp., previous admission, EMS record, old EKG, old radiological studies, urgent care reports/EKG's, senior living records)? Report findings @ -No old charts were reviewed Differential Diagnosis (chest pain, altered mental status, abdominal pain women, abdominal pain men, vaginal bleeding, weakness, fever, dyspnea, syncope, headache, dizziness, GI bleed, back pain, seizure, CVA, palpatations, mental health, musculoskeletal)? @ -Differential Dizziness: Benign paroxysmal positional Vertigo, Menieres disease, otitis media, acoustic neuroma, vertebrobasilar insufficiency, cerebellar stroke, encephalitis, hypovolemic, arrhythmia, coronary artery syndrome, anemia, this is not meant to be an all-inclusive list EKG interpreted by me (3pts min.). @ -As above X-rays interpreted by me (1pt min.). @ -Chest x-ray showed no acute abnormality. CT interpreted by me (1pt min.). @ -Computed tomography scan shows some air-fluid levels in the mastoid area bilaterally on examination patient had no local tenderness U/S interpreted by me (1pt. min.). @ -None done What testing was considered but not performed or refused? (CT, X-rays, U/S, labs)? Why? @ -None What meds were considered but not given or refused? Why? @ -None Did you discuss the management of the patient with other professionals (professionals i.e. , PA, TIN WHIZ MACHINE OPERATOR, lab, RT, psych nurse, social sciences instructor, loss prevention auditor, teacher, u.s. revenue officer, immigration case worker)? Give summary @ -I spoke with [facility] hospitalist agreed to admit the patient to the patient Was smoking cessation discussed for >3mins.? @ -No Was critical care preformed (if so, how long)? @ -No Were there social determinants of health that impacted care today? How? (Homeles sness, low income, unemployed, alcoholism, drug addiction, transportation, low edu. Level, literacy, decrease access to med. care, correction, rehab)? @ -No Was there de-escalation of care discussed even if they declined (Discuss DNR or withdrawal of care, Hospice)? DNR status @ -No What co-morbidities impacted this encounter? (DM, HTN, Smoking, COPD, CAD, Cancer, CVA, ARF, Chemo, Hep., AIDS, mental health diagnosis, sleep apnea, morbid obesity)? @ -None Was patient admitted / discharged? Hospital course, mention meds given and route, prescriptions, significant lab abnormalities, going to OR and other pertinent info. @ -Patient was not orthostatic positive. Patient was given Antivert and then ambulated he was not successful and ambulating without having to grab onto something he thought he was going to fall over or passout. I spoke [facility] hospitalist agreed to admit the patient admitted the patient wrote admitting orders. Undiagnosed new problem with uncertain prognosis? @ -No Drug Therapy requiring intensive monitoring for toxicity (Heparin, Nitro, Insulin, Cardizem)? @ -No Were any procedures done? @ -No Diagnosis/symptom? @ -Near syncope Acute, or Chronic, or Acute on Chronic? @ -Acute Uncomplicated (without systemic symptoms) or Complicated (systemic symptoms)? @ -Complicated Side effects of treatment? @ -No Exacerbation, Progression, or Severe Exacerbation? @ -No Poses a threat to life or bodily function? How? (Chest pain, [place], [place], pneumonia, PE, COPD, DKA, ARF, appy, cholecystitis, CVA, Diverticulitis, Homicidal, Suicidal, threat to staff... and all critical care pts) @ -Syncope could be related to dysrhythmia which will be monitored while the patient was in the hospital. - Lab Data Result diagrams: 03/23/23 10:58 03/23/23 10:58 Lab Results 03/23/23 03/23/23 03/23/23 Range/Units 10:58 10:58 10:58 WBC 8.7 (3.8-10.6) k/uL RBC 4.55 (4.30-5.90) m/uL Hgb 15.6 (13.0-17.5) gm/dL Hct 42.8 (39.0-53.0) % MCV 94.2 (80.0-100.0) fL MCH 34.4 (25.0-35.0) pg MCHC 36.5 (31.0-37.0) g/dL RDW 14.6 (11.5-15.5) % Plt Count 553 H (150-450) k/uL MPV 7.7 Neutrophils % 65 % Lymphocytes % 23 % Monocytes % 8 % Eosinophils % 2 % Basophils % 1 % Neutrophils # 5.7 (1.3-7.7) k/uL Lymphocytes # 2.0 (1.0-4.8) k/uL Monocytes # 0.7 (0-1.0) k/uL Eosinophils # 0.2 (0-0.7) k/uL Basophils # 0.0 (0-0.2) k/uL Manual Slide Review Performed PT 11.5 (9.0-12.0) sec INR 1.1 (<1.2) APTT 26.1 (22.0-30.0) sec Sodium 136 L (137-145) mmol/L Potassium 4.8 (3.5-5.1) mmol/L Chloride 96 L (98-107) mmol/L Carbon Dioxide 31 H (22-30) mmol/L Anion Gap 9 mmol/L BUN 21 H (9-20) mg/dL Creatinine 1.14 (0.66-1.25) mg/dL Est GFR (CKD-EPI)AfAm 69 (>60 ml/min/1.73 sqM) Est GFR (CKD-EPI)NonAf 60 (>60 ml/min/1.73 sqM) Glucose 105 H (74-99) mg/dL Calcium 9.3 (8.4-10.2) mg/dL Magnesium 1.7 (1.6-2.3) mg/dL Total Bilirubin 1.1 (0.2-1.3) mg/dL AST 23 (17-59) U/L ALT 16 (4-49) U/L Alkaline Phosphatase 50 (38-126) U/L Troponin I (0.000-0.034) ng/mL Total Protein 7.0 (6.3-8.2) g/dL Albumin 4.4 (3.5-5.0) g/dL 03/23/23 Range/Units 10:58 WBC (3.8-10.6) k/uL RBC (4.30-5.90) m/uL Hgb (13.0-17.5) gm/dL Hct (39.0-53.0) % MCV (80.0-100.0) fL MCH (25.0-35.0) pg MCHC (31.0-37.0) g/dL RDW (11.5-15.5) % Plt Count (150-450) k/uL MPV Neutrophils % % Lymphocytes % % Monocytes % % Eosinophils % % Basophils % % Neutrophils # (1.3-7.7) k/uL Lymphocytes # (1.0-4.8) k/uL Monocytes # (0-1.0) k/uL Eosinophils # (0-0.7) k/uL Basophils # (0-0.2) k/uL Manual Slide Review PT (9.0-12.0) sec INR (<1.2) APTT (22.0-30.0) sec Sodium (137-145) mmol/L Potassium (3.5-5.1) mmol/L Chloride (98-107) mmol/L Carbon Dioxide (22-30) mmol/L Anion Gap mmol/L BUN (9-20) mg/dL Creatinine (0.66-1.25) mg/dL Est GFR (CKD-EPI)AfAm (>60 ml/min/1.73 sqM) Est GFR (CKD-EPI)NonAf (>60 ml/min/1.73 sqM) Glucose (74-99) mg/dL Calcium (8.4-10.2) mg/dL Magnesium (1.6-2.3) mg/dL Total Bilirubin (0.2-1.3) mg/dL AST (17-59) U/L ALT (4-49) U/L Alkaline Phosphatase (38-126) U/L Troponin I <0.012 (0.000-0.034) ng/mL Total Protein (6.3-8.2) g/dL Albumin (3.5-5.0) g/dL Disposition Clinical Impression: Near syncope Disposition: ADMITTED IP TO THIS HOSP Referrals: Olive Cardoza MD [Primary Care Provider] - 1-2 days Time of Disposition: 13:05
[2023-03-23 11:31] LABS: Basophils % (A) 1 %; Eosinophils # (A) 0.2 k/uL (0-0.7); Eosinophils % (A) 2 %; HCT 42.8 % (39.0-53.0); HGB 15.6 gm/dL (13.0-17.5); Lymphocytes % (A) 23 %; MCH 34.4 pg (25.0-35.0); MCHC 36.5 g/dL (31.0-37.0); MCV 94.2 fL (80.0-100.0); Mean Platelet Volume 7.7; Monocytes # (A) 0.7 k/uL (0-1.0); Monocytes % (A) 8 %; Neutrophils # (A) 5.7 k/uL (1.3-7.7); Neutrophils % (A) 65 %; Platelet Count 553 k/uL (150-450); RBC 4.55 m/uL (4.30-5.90); RDW 14.6 % (11.5-15.5); WBC 8.7 k/uL (3.8-10.6)
[2023-03-23 11:33] LABS: ALT 16 U/L (4-49); AST 23 U/L (17-59); African American GFR (CKD) 69 (>60 ml/min/1.73 sqM); Albumin 4.4 g/dL (3.5-5.0); Alkaline Phosphatase 50 U/L (38-126); Anion Gap 9 mmol/L; Blood Urea Nitrogen 21 mg/dL (9-20); Calcium 9.3 mg/dL (8.4-10.2); Carbon Dioxide 31 mmol/L (22-30); Chloride 96 mmol/L (98-107); Glucose 105 mg/dL (74-99); Magnesium 1.7 mg/dL (1.6-2.3); Non-African American GFR(CKD) 60 (>60 ml/min/1.73 sqM); Potassium 4.8 mmol/L (3.5-5.1); Sodium 136 mmol/L (137-145); Total Bilirubin 1.1 mg/dL (0.2-1.3)
--- NOTE | 2023-03-23 11:39 | XR ---
EXAMINATION TYPE: XR chest 2V DATE OF EXAM: 03/23/2023 11:31 AM COMPARISON: CT 09/03/2022. TECHNIQUE: XR chest 2V Frontal and lateral views of the chest. CLINICAL INDICATION:Male, 82 years old with history of Chest Pain; FINDINGS: Lungs/Pleura: Similar partially calcified nodule in the left lung measuring 29 mm x 18 mm seen on lat eral view, this was present on prior on 09/03/2022. Increased lucency within the right lung apex cons istent with bulla seen on prior CT. There is no evidence of pleural effusion, focal consolidation, or pneumothorax. Pulmonary vascularity: Unremarkable. Heart/mediastinum: Cardiomediastinal silhouette is unremarkable. Musculoskeletal: No acute osseous pathology. IMPRESSION: 1. No acute cardiopulmonary disease/process. 2. 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 3. Stable right perihilar nodule seen on lateral view.
[2023-03-23 11:44] LABS: INR 1.1 (<1.2); Partial Thromboplastin Time 26.1 sec (22.0-30.0); Prothrombin Time 11.5 sec (9.0-12.0)
--- NOTE | 2023-03-23 11:44 | CT ---
EXAMINATION TYPE: CT brain wo con DATE OF EXAM: 03/23/2023 COMPARISON: None HISTORY: 82-year-old male Near syncope TECHNIQUE: Examination was done in axial plane without intravenous contrast. Coronal and sagittal r econstructions performed. CT DLP: 1107.4 mGycm Automated exposure control for dose reduction was used. FINDINGS: There is no evidence of acute intracranial hemorrhage, acute ischemic changes, mass, mass-effect, or extra-axial fluid collection. There is no effacement of cerebral sulci or basal subarachnoid cister ns. There is no hydrocephalus. There is no midline shift. Bolaños-white matter distinction is preserv ed. Pgla-en-kbjuusha generalized supratentorial volume loss. 1.6 cm polyp or mucous retention cyst lateral wall of the right sphenoid sinus. Moderate mucosal thic kening throughout the ethmoid air cells. Fluid trapped within the bilateral mastoid air cells and als o extending into the right middle ear cavity. Orbits and globes are intact. IMPRESSION: 1. Mild to moderate generalized atrophy. No acute intracranial abnormality seen. 2. Moderate chronic ethmoid sinus disease. 3. Fluid in the bilateral mastoid air cells and right middle ear cavity. Correlate for any pain/local izing symptoms to exclude mastoiditis/otomastoiditis.
[2023-03-23] MEDS ORDERED: SODIUM CHLORIDE 0.9% 1,000 ML IV STA (13:13)
[2023-03-23] MEDS ORDERED: ONDANSETRON 4 MG/2 ML VIAL IVP PRN (13:14)
[2023-03-23] MEDS ORDERED: NALOXONE 0.4 MG/ML 1 ML VIAL IV PRN (13:14)
[2023-03-23] MEDS ORDERED: ACETAMINOPHEN TAB 325 MG TAB PO PRN (13:14)
[2023-03-23] MEDS ORDERED: SCOPOLAMINE 1 MG/72 HR PATCH TRANSDERM STA (13:24)
[2023-03-23] MEDS: PANTOPRAZOLE 40 MG TABLET PO SCH (15:41)
[2023-03-23] MEDS: MECLIZINE 25 MG TAB PO SCH ×2 (15:41→20:08)
[2023-03-23] MEDS ORDERED: VANCOMYCIN IV PER PHARMACY 1 EACH MISC MISCELLANE PRN (18:48)
--- NOTE | 2023-03-23 18:48 | P.HPIM ---
History of Present Illness H&P Date: 03/23/23 Chief Complaint: Dizziness 82-year-old male who presents emergency Department complaining of dizziness for a month. Patient states again progressively worse to the point where he feels like is given a passout and time. Patient states she's never passed out. Patient states he feels as though he has to grab onto something and he does and though he does not pass out he doesn't feel as though it improved his dizziness. Patient states he lies down he never occurs per patient denies any chest pain difficulty breathing shortness of breath. Patient denies any palpations. Patient has a headache patient denies numbness or weakness. Patient denies any other symptoms at this time. Patient initially thought was vertigo but says it continues he's thinking it might be something worse. Blood work completed in ED reveals a WBC of 8.7, hemoglobin of 15.3 and platelet count of 553, sodium 136, potassium 4.8, BUN/creatinine of 21/1.14, blood glucose of 105, troponin of 0.012 EKG shows a sinus rhythm at 70 bpm SD interval is 264 QRS is 91 QT interval 418 QTC is 439. Patient's EKG shows no ST segment elevation or depression. CT of the head reveals mild to moderate generalized atrophy with no acute intracranial abnormality, moderate chronic ethmoid sinus disease, fluid in bilateral mastoid air cells and right middle ear correlate for mastoiditis/otomastoiditis Review of Systems REVIEW OF SYSTEMS: CONSTITUTIONAL: No fever, no malaise, no fatigue. HEENT: No recent visual problems or hearing problems. Denied any sore throat. CARDIOVASCULAR: No chest pain, orthopnea, PND, no palpitations, no syncope. PULMONARY: No shortness of breath, no cough, no hemoptysis. GASTROINTESTINAL: No diarrhea, no nausea, no vomiting, no abdominal pain. NEUROLOGICAL: No headaches, no weakness, no numbness. HEMATOLOGICAL: Denies any bleeding or petechiae. GENITOURINARY: Denies any burning micturition, frequency, or urgency. MUSCULOSKELETAL/RHEUMATOLOGICAL: Denies any joint pain, swelling, or any muscle pain. ENDOCRINE: Denies any polyuria or polydipsia. The rest of the 14-point review of systems is negative. Past Medical History Past Medical History: Cancer, COPD, GERD/Reflux, Hyperlipidemia, Hypertension, Prostate Disorder Additional Past Medical History / Comment(s): gout History of Any Multi-Drug Resistant Organisms: None Reported Past Surgical History: Heart Catheterization Past Anesthesia/Blood Transfusion Reactions: No Reported Reaction Past Psychological History: No Psychological Hx Reported Smoking Status: Former smoker Past Alcohol Use History: Occasional Past Drug Use History: None Reported - Past Family History Mother History Unknown: Yes Father History Unknown: Yes Medications and Allergies Home Medications Medication Instructions Recorded Confirmed Type Atenolol 50 mg PO BID@0800,1200 02/20/14 03/23/23 History Pantoprazole Sodium [Protonix] 40 mg PO BID 02/20/14 03/23/23 History Simvastatin [Zocor] 80 mg PO HS 02/20/14 03/23/23 History hydrALAZINE HCL [Apresoline] 25 mg PO BID 02/20/14 03/23/23 History hydroCHLOROthiazide [Hydrodiuril] 25 mg PO DAILY 02/20/14 03/23/23 History Losartan Potassium [Cozaar] 100 mg PO W/LUNCH 09/11/22 03/23/23 History Allergies Allergy/AdvReac Type Severity Reaction Status Date / Time No Known Allergies Allergy Verified 03/23/23 12:40 Physical Exam Vitals: Vital Signs Temp Pulse Resp BP BP BP BP 03/23/23 12:47 64 20 203/103 03/23/23 10:55 174/87 159/82 167/83 03/23/23 10:30 98.4 F 69 20 169/81 Pulse Ox 03/23/23 12:47 98 03/23/23 10:55 03/23/23 10:30 99 Intake and Output 03/22/23 03/23/23 03/23/23 22:59 06:59 14:59 Other: Weight 86.183 kg PHYSICAL EXAMINATION: GENERAL: The patient is alert and oriented x3, not in any acute distress. Well developed, well nourished. HEENT: Pupils are round and equally reacting to light. EOMI. No scleral icterus. No conjunctival pallor. Normocephalic, atraumatic. No pharyngeal erythema. No thyromegaly. CARDIOVASCULAR: S1 and S2 present. No murmurs, rubs, or gallops. PULMONARY: Chest is clear to auscultation, no wheezing or crackles. ABDOMEN: Soft, nontender, nondistended, normoactive bowel sounds. No palpable organomegaly. MUSCULOSKELETAL: No joint swelling or deformity. EXTREMITIES: No cyanosis, clubbing, or pedal edema. NEUROLOGICAL: Gross neurological examination did not reveal any focal deficits. SKIN: No rashes. Results CBC & Chem 7: 03/23/23 10:58 03/23/23 10:58 Labs: Abnormal Lab Results - Last 24 Hours (Table) 03/23/23 03/23/23 Range/Units 10:58 10:58 Plt Count 553 H (150-450) k/uL Sodium 136 L (137-145) mmol/L Chloride 96 L (98-107) mmol/L Carbon Dioxide 31 H (22-30) mmol/L BUN 21 H (9-20) mg/dL Glucose 105 H (74-99) mg/dL Assessment and Plan Assessment: 1. Near syncope - Workup completed in ED including an EKG and CT of the brain has been unremarkable - We will consult neurology for further recommendations 2. Dizziness; etiology unclear; possible vertigo - Patient has been placed on meclizine to be used when necessary 3. Acute Mastoiditis; start patient on IV vancomycin/Rocephin; consult ID for further recommendations 4. Mild renal injury/dehydration; started slow IV fluid hydration with normal saline; monitor strict ADE's, daily weights, renal function and electrolytes; avoid nephrotoxins and hypotension 5. Hypertension; Atenolol 50 mg by mouth twice a day; hydralazine 25 mg twice a day, height her diet. ALT 25 mg daily and Cozaar 100 mg daily 6. Hyperlipidemia; Lipitor 40 mg by mouth daily at bedtime 7. Gastroesophageal reflux disease; Protonix 40 mg twice a day
[2023-03-23] MEDS: VANCOMYCIN 1,500 MG in SODIUM CHLORIDE 0.9% 500 ML 500 ML IVPB SCH (19:30)
--- NOTE | 2023-03-23 19:37 | US ---
EXAMINATION TYPE: US carotid duplex BILAT DATE OF EXAM: 03/23/2023 COMPARISON: CLINICAL INDICATION: Male, 82 years old with history of Dizziness, near syncope; HTN- on meds. No hx tia or stroke. Dizziness when standing. TECHNIQUE: Carotid duplex ultrasound examination. Indirect Doppler criteria was utilized. FINDINGS: EXAM MEASUREMENTS: RIGHT: Peak Systolic Velocity (PSV) cm/sec ----- Right CCA: 65.8 ----- Right ICA: 102.1 ----- Right ECA: 153.6 ICA/CCA ratio: 1.6 RIGHT: End Diastole cm/sec ----- Right CCA: 0.0 ----- Right ICA: 14.1 ----- Right ECA: 0.0 LEFT: Peak Systolic Velocity (PSV) cm/sec ----- Left CCA: 81.2 ----- Left ICA: 125.3 ----- Left ECA: 130.2 ICA/CCA ratio: 1.5 LEFT: End Diastole cm/sec ----- Left CCA: 7.6 ----- Left ICA: 18.7 ----- Left ECA: 0.0 VERTEBRALS (direction of flow): Right Vertebral: Antegrade Left Vertebral: Antegrade Rhythm: Normal LION TAMER NOTES: Elevated right ECA velocity. Plaque visualized in bilateral bulbs extending into ICA. Wall thickening. IMPRESSION: 1. 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 2. Less than 50% stenosis of the right carotid bifurcation Criteria for Assigning % of Stenosis / Diameter reduction (Estimation based on the indirect measurements of the internal carotid artery velocities (ICA PSV). 1. Normal (no stenosis)=ICA PSV < 125 cm/s: ratio < 2.0: ICA EDV<40 cm/s. 2. Less than 50% stenosis=ICA PSV < 125 cm/s: ratio < 2.0: ICA EDV<40 cm/s. 3. 50 to 69% stenosis=ICA PSV of 125 to 230 cm/s: ration 2.0 ? 4.0: ICA EDV 40-100 cm/s. 4. Greater than 70% stenosis to near occlusion= ICA PSV > 230 cm/s: ratio > 4.0: ICA EDV > 100 cm/s. 5. Near occlusion= ICA PSV velocities may be low or undetectable: variable ratio and ICA EDV. 6. Total occlusion=unable to detect flow.
[2023-03-23] MEDS: ATORVASTATIN 40 MG TAB PO SCH (20:08)
[2023-03-23] MEDS: hydrALAZINE HCL 25 MG TAB PO SCH (20:08)
--- NOTE | 2023-03-24 01:50 | P.CNNES ---
History of Present Illness Consult date: 03/23/23 Requesting physician: Matteo Jacques Reason for Consult: Near syncope, vertigo History of Present Illness: Patient is a 82-year-old right-handed male came to the hospital this morning at 10:29 AM for dizziness. Patient says that he lives in [facility] for the last 5 months. His blood pressure has been running high. Patient has been feeling dizziness, when he gets up or stands up. He says that he is okay when he is sitting, laying in the bed and does not bother him when he rolls over in the bed. Patient states that this has been going on in the last 30-40 days, could not tell how often does it bother him. When he feels dizzy, he feels lightheaded, as if he will pass out. In the beginning it was happening sporadically, and he tried to shake it off. Symptoms have been worse since Sunday, 5 days ago. This morning he woke up, was walking down the hallway when he felt he will pass out. He yelled for help and the nurse at [facility] came over and helped him get into the chair. His blood pressure was high. Patient states that now every time he gets up, he gets dizzy like will pass out. He feels that he is losing balance. In the ER he got up to stand and he couldn't walk like she will fall down and passed out. Before he was admitted for observation. He denies any focal symptoms like slurred speech, facial droop, or any strokelike symptoms. He describes it as sensation as if he will faint or pass out, very lightheaded denies any vertigo. Patient denies any symptoms related to his seizures except that he is hard of hearing. Denies any tinnitus. Denies any upper respiratory infection. Vital signs on arrival blood pressure 169/81, pulse rate 69 temperature 98.4. Patient had orthostatics, in which supine blood pressure 167/83, sitting was 174/87 and standing 159/82. Orthostatics negative. Blood tests showed normal CBC, PT/PTT, sodium 136 potassium 4.8, BUN 21, creatinine 1.14. Hepatic panel is normal, troponin negative. EKG shows sinus rhythm with first-degree AV b lock. Chest x-ray showed no acute cardiopulmonary diseaseprocess. 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 Stable right perihilar nodules seen on the lateral view. CT head revealed mild to moderate generalized atrophy. No acute intracranial abnormality seen. Moderate chronic ethmoid sinus disease. Fluid in the bilateral mastoid air cells and right middle ear cavity. Correlate for any pain/localizing symptoms to exclude mastoiditis/otomastoiditis. I personally reviewed CT head, agree with the findings. Patient has smoked 1 pack per day for 35 years (age [age]), quit 30 years ago. Denies any alcohol. He used to drink wine, but not anymore. Denies excessive caffeine. Patient states that he is fully active in his house but it was too much for him therefore he sold his house and moved into [facility]. He denies diabetes. 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), denies blurred vision, denies diplopia Ears: bilateral: decreased hearing, deny: ear discharge, tinnitus Ears, nose, mouth and throat: Denies headache, Denies sore throat Cardiovascular: Denies chest pain, Denies shortness of breath Respiratory: Denies cough, Denies excessive sputum Gastrointestinal: Denies abdominal pain, Denies diarrhea, Denies nausea, Denies vomiting Musculoskeletal: Denies myalgias, Denies neck stiffness Integumentary: Denies pruritus, Denies rash Neurological: Reports as per HPI, Reports hearing difficulties, Denies convulsions, Denies double vision Psychiatric: Denies anxiety, Denies depression Endocrine: Denies fatigue, Denies weight change Past Medical History Past Medical History: COPD, GERD/Reflux, Hyperlipidemia, Hypertension, Osteoarthritis (OA) Additional Past Medical History / Comment(s): Gout History of Any Multi-Drug Resistant Organisms: None Reported Past Surgical History: Heart Catheterization Past Anesthesia/Blood Transfusion Reactions: No Reported Reaction Past Psychological History: No Psychological Hx Reported Smoking Status: Former smoker Past Alcohol Use History: Occasional Past Drug Use History: None Reported - Past Family History Mother History Unknown: Yes Father History Unknown: Yes Medications and Allergies Home Medications Medication Instructions Recorded Confirmed Type Atenolol 50 mg PO BID@0800,1200 02/20/14 03/23/23 History Pantoprazole Sodium [Protonix] 40 mg PO BID 02/20/14 03/23/23 History Simvastatin [Zocor] 80 mg PO HS 02/20/14 03/23/23 History hydrALAZINE HCL [Apresoline] 25 mg PO BID 02/20/14 03/23/23 History hydroCHLOROthiazide [Hydrodiuril] 25 mg PO DAILY 02/20/14 03/23/23 History Losartan Potassium [Cozaar] 100 mg PO W/LUNCH 09/11/22 03/23/23 History Allergies Allergy/AdvReac Type Severity Reaction Status Date / Time No Known Allergies Allergy Verified 03/23/23 12:40 Physical Examination - Vital Signs Vital Signs: Vital Signs Temp Pulse Pulse Resp BP BP BP 03/23/23 15:03 98.1 F 68 16 171/93 03/23/23 15:00 68 03/23/23 14:42 61 20 177/91 03/23/23 12:47 64 20 203/103 03/23/23 10:55 174/87 159/82 03/23/23 10:30 98.4 F 69 20 169/81 BP Pulse Ox 03/23/23 15:03 97 03/23/23 15:00 03/23/23 14:42 97 03/23/23 12:47 98 03/23/23 10:55 167/83 03/23/23 10:30 99 Intake and Output 03/23/23 03/23/23 03/23/23 06:59 14:59 22:59 Other: Voiding Method External Catheter Weight 86.183 kg 86.183 kg Patient is an elderly male, very pleasant, in no acute distress. Patient is alert awake oriented to time place and person. Speech and language functions are normal. Patient can name and repeat very well. No aphasia or dysarthria. Attention, concentration and fund of knowledge is adequate. Detailed cognitive function testing deferred. On cranial nerve examination, pupils are equal, round and reacting to light, right pupil is surgical. 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 His visual medina are full on confrontation, with no neglect on double simultaneous stimulation. Extraocular muscles are intact with no nystagmus. Face is symmetric, tongue protrudes to the midline. Palatal elevation and sensation normal, hearing is significantly decreased bilaterally and shoulder shrug normal, facial sensation normal. On muscle strength testing, there is no pronator drift and the strength is normal in arms and legs distally and proximally except deltoids which are weak bilaterally, 4+ right, 3 left due to rotator cuff tear. In the lower limbs, hip flexion is 4+5-bilaterally, ankle dorsiflexion is 5 bilaterally. Patient has hammertoes, high arched feet. Deep tendon reflexes are symmetric 2+3 all over and plantars are flat bilaterally. Sensory to touch is equal with no neglect on double simultaneous stimulation. Cerebellar function showed no ataxia for oyjulu-[id number] testing. No dysdia dochokinesia. Patient has mild ataxia for [id number] testing on the left leg. Tone and bulk of muscles normal. Gait deferred.. On general examination, there is no carotid bruit or murmur, S1-S2 audible. Chest is clear on consultation. Abdomen is soft nontender. No organomegaly, bowel sounds present. Peripheral pulses are present. No edema. Results - Laboratory Findings CBC and BMP: 03/23/23 10:58 03/23/23 10:58 Abnormal Lab Findings: Abnormal Labs 03/23/23 03/23/23 10:58 10:58 Plt Count 553 H Sodium 136 L Chloride 96 L Carbon Dioxide 31 H BUN 21 H Glucose 105 H Assessment and Plan Assessment: * 82-year-old male with 1 month history of dizziness on standing up, like near syncopal symptoms. Patient denies any vertigo, denies any symptoms when sitting, laying or when rolling over in the bed. Orthostatics checked were negative. * Hypertension * CT head showed possibility of otomastoiditis * High arched feet, hammer toes * Hyperlipidemia * Osteoarthritis Plan: * Carotid Doppler to rule out stenosis * 2-D echo to rule out any cardiac cause of dizziness/near syncope * Repeat orthostatics with pulse and blood pressure checks. * May consider tilt table test for further evaluation of possible orthostasis, if patient remains symptomatic. * Optimize control of blood pressure. * B12, folate, TSH, hemoglobin A1c * Continue Lipitor 40 mg daily. Start aspirin 81 mg daily. Patient was not on any antiplatelet medication at home. He does have multiple vascular risk factors. * CT head revealed possibility of otomastoiditis. Agree with ID consultation. May need ENT input. Patient currently on ceftriaxone 1 g every 24 hours and vancomycin. * Dr. Rosendo Santos will color neurology service over the weekend. Thank you for the consult.
[2023-03-24] MEDS: PANTOPRAZOLE 40 MG TABLET PO SCH ×2 (06:09→16:22)
[2023-03-24] MEDS: hydrALAZINE HCL 25 MG TAB PO SCH ×2 (08:43→20:33)
[2023-03-24] MEDS: hydroCHLOROthiazide 25 MG TAB PO SCH (08:43)
[2023-03-24] MEDS: ASPIRIN 81 MG PO SCH (08:43)
[2023-03-24] MEDS: atenoloL 50 MG TAB PO SCH ×2 (08:43→11:03)
[2023-03-24] MEDS: MECLIZINE 25 MG TAB PO SCH ×3 (08:43→20:33)
[2023-03-24 09:48] LABS: African American GFR (CKD) 90 (>60 ml/min/1.73 sqM); Anion Gap 9 mmol/L; Blood Urea Nitrogen 15 mg/dL (9-20); Calcium 9.5 mg/dL (8.4-10.2); Carbon Dioxide 30 mmol/L (22-30); Chloride 96 mmol/L (98-107); Glucose 108 mg/dL (74-99); Non-African American GFR(CKD) 78 (>60 ml/min/1.73 sqM); Potassium 4.4 mmol/L (3.5-5.1); Sodium 135 mmol/L (137-145)
[2023-03-24 09:56] LABS: Anisocytosis Slight; Basophils # (A) 0.1 k/uL (0-0.2); Basophils % (A) 1 %; Eosinophils # (A) 0.1 k/uL (0-0.7); Eosinophils % (A) 1 %; HCT 46.5 % (39.0-53.0); HGB 15.3 gm/dL (13.0-17.5); Lymphocytes # (A) 1.5 k/uL (1.0-4.8); Lymphocytes % (A) 15 %; MCH 31.5 pg (25.0-35.0); MCHC 32.9 g/dL (31.0-37.0); MCV 95.7 fL (80.0-100.0); Monocytes # (A) 0.6 k/uL (0-1.0); Monocytes % (A) 6 %; Neutrophils # (A) 7.1 k/uL (1.3-7.7); Neutrophils % (A) 75 %; Platelet Count 598 k/uL (150-450); RBC 4.86 m/uL (4.30-5.90); RDW 17.1 % (11.5-15.5); WBC 9.5 k/uL (3.8-10.6)
[2023-03-24] MEDS: LOSARTAN 50 MG TAB PO SCH (11:03)
[2023-03-24] MEDS: VANCOMYCIN 1,500 MG in SODIUM CHLORIDE 0.9% 500 ML 500 ML IVPB SCH (11:03)
--- NOTE | 2023-03-24 12:59 | P.PN ---
Subjective Progress Note Date: 03/24/23 I am seeing the patient for the first time during this admission. Please refer to Dr. Cain's note for further details. According to patient he has dizziness with movement and improved with rest. Feels about the same from yesterday till today. Objective - Vital Signs Vital signs: Vital Signs Temp 97.4 F L 03/24/23 11:01 Pulse 68 03/24/23 11:01 Resp 18 03/24/23 11:01 BP 184/87 03/24/23 11:01 Pulse Ox 96 03/24/23 11:01 FiO2 Intake & Output 03/23/23 03/24/23 03/24/23 18:59 06:59 18:59 Intake Total 120 1680 10 Output Total 600 400 Balance 120 1080 -390 Weight 86.183 kg Intake: IV 10 Invasive Line 1 10 Intake, IV Titration 600 Amount Vancomycin 1,500 mg In 500 Sodium Chloride 0.9% 500 ml 500 ml @ 167 mls/hr IVPB Q16H [facility] Rx#: [id number] cefTRIAXone 1 gm In 100 Sodium Chloride 0.9% 50 ml @ 100 mls/hr IVPB Q24HR [facility] Rx#:[id number] Oral 120 1080 0 Output: Urine 600 400 Other: Voiding Method External Catheter External Catheter External Catheter - Exam Patient is awake, alert, oriented X3. Is following simple commands. No aphasia. Is legally blind over the right eye. VFF on the left. No facial weakness. No dysarthria. Motor: Strength is normal in arms and legs distally and proximally except deltoids which are weak bilaterally, 4+ right, 3 left due to rotator cuff tear. In the lower limbs, hip flexion is 4+5-bilaterally, ankle dorsiflexion is 5 bilaterally. Patient has hammertoes, high arched feet. - Labs CBC & Chem 7: 03/24/23 08:37 03/24/23 08:37 Labs: Abnormal Lab Results - Last 24 Hours (Table) 03/24/23 03/24/23 Range/Units 08:37 08:37 RDW 17.1 H (11.5-15.5) % Plt Count 598 H (150-450) k/uL Sodium 135 L (137-145) mmol/L Chloride 96 L (98-107) mmol/L Glucose 108 H (74-99) mg/dL Assessment and Plan Assessment: * 82-year-old male with 1 month history of dizziness on standing up, like near syncopal symptoms. Patient denies any vertigo, denies any symptoms when sitting, laying or when rolling over in the bed. Orthostatics checked were negative. * Hypertension * CT head showed possibility of otomastoiditis * High arched feet, hammer toes * Hyperlipidemia * Osteoarthritis Plan: * I ordered MRI Brain to rule out any central cause * Carotid Doppler: It is reported as 50-69% stenosis of left carotid bifurcation peak systolic velocity which is borderline. Less than 50% stenosis on the right carotid bifurcation. I ordered MRA neck an if significant will consult vascular. * 2-D echo ordered by Dr. Cain to rule out any cardiac cause of dizziness/near syncope * Repeat orthostatics with pulse and blood pressure checks. * May consider tilt table test for further evaluation of possible orthostasis, if patient remains symptomatic. * Optimize control of blood pressure. * B12, folate, hemoglobin A1c are ordered by Dr. cain and pending. TSH: 0.692. * Continue Lipitor 40 mg daily. Start aspirin 81 mg daily. Patient was not on any antiplatelet medication at home. He does have multiple vascular risk factors. * Is on Meclizine 25mg 1 tab tid. * CT head revealed possibility of otomastoiditis. Agree with ID consultation. May need ENT input. Patient currently on ceftriaxone 1 g every 24 hours and vancomycin. Plan is discussed with patient and his nurse. Dr. Cain will start neurology service Sunday A.M. Time with Patient: Less than 30
[2023-03-24 13:33] VITALS: BMI 23.1
--- NOTE | 2023-03-24 15:23 | P.GSCN ---
History of Present Illness Consult date: 03/24/23 Reason for Consult: carotid stenosis History of present illness: 82 year old right handed gentleman who presented at the hospital yesterday ross saldaña for dizziness. Patient states he has been feeling dizzy for the last several weeks and noticed that it has been getting worse over the last several days. He notices worsening dizziness when he gets up and stands prior to walking. He notices that he does okay while he is sitting or laying in bed and does not feel lightheaded during most times. When he first noticed dizziness the symptoms would resolve pretty quickly but over the last several episodes he has been feeling as if he is going to pass out. He is currently being treated are evaluated for dizziness and underwent carotid Doppler of the neck which demonstrated 50-60% stenosis of the left carotid artery. He denies any laterali zing symptoms such as weakness, vision changes or speech issues. He denies any fevers, chills, chest pain or shortness of breath. Review of Systems All systems: negative (What is mentioned in the HPI or past medical history) Past Medical History Past Medical History: COPD, GERD/Reflux, Hyperlipidemia, Hypertension, Os teoarthritis (OA) Additional Past Medical History / Comment(s): Gout History of Any Multi-Drug Resistant Organisms: None Reported Past Surgical History: Heart Catheterization Past Anesthesia/Blood Transfusion Reactions: No Reported Reaction Past Psychological History: No Psychological Hx Reported Smoking Status: Former smoker Past Alcohol Use History: Occasional Past Drug Use History: None Reported - Past Family History Mother History Unknown: Yes Father History Unknown: Yes Medications and Allergies Home Medications Medication Instructions Recorded Confirmed Type Atenolol 50 mg PO BID@0800,1200 02/20/14 03/23/23 History Pantoprazole Sodium [Protonix] 40 mg PO BID 02/20/14 03/23/23 History Simvastatin [Zocor] 80 mg PO HS 02/20/14 03/23/23 History hydrALAZINE HCL [Apresoline] 25 mg PO BID 02/20/14 03/23/23 History hydroCHLOROthiazide [Hydrodiuril] 25 mg PO DAILY 02/20/14 03/23/23 History Losartan Potassium [Cozaar] 100 mg PO W/LUNCH 09/11/22 03/23/23 History Allergies Allergy/AdvReac Type Severity Reaction Status Date / Time No Known Allergies Allergy Verified 03/23/23 12:40 Surgical - Exam Vital Signs Temp Pulse Resp BP Pulse Ox 98.4 F 69 20 169/81 99 03/23/23 10:30 03/23/23 10:30 03/23/23 10:30 03/23/23 10:30 03/23/23 10:30 - General well developed, well nourished, no distress - Eyes PERRL, normal ocular movement - ENT normal pinna, normal nares - Neck no masses, no bruits - Respiratory normal expansion, normal respiratory effort - Cardiovascular Rhythm: regular - Abdomen Abdomen: soft, non tender - Integumentary no rash, no growths - Neurologic normal coordination, normal sensation - Psychiatric oriented to time, oriented to person, oriented to place, speech is normal Muscle strength is equal bilaterally. Electrical Contacts Adjuster strength is equal. No facial droop or tongue deviation. Palpable DP and PT pulses bilaterally. Palpable radial pulses bilaterally Results - Labs 03/24/23 08:37 03/24/23 08:37 Abnormal Lab Results - Last 24 Hours (Table) 03/24/23 03/24/23 Range/Units 08:37 08:37 RDW 17.1 H (11.5-15.5) % Plt Count 598 H (150-450) k/uL Sodium 135 L (137-145) mmol/L Chloride 96 L (98-107) mmol/L Glucose 108 H (74-99) mg/dL Diabetes panel 03/24/23 Range/Units 08:37 Sodium 135 L (137-145) mmol/L Potassium 4.4 (3.5-5.1) mmol/L Chloride 96 L (98-107) mmol/L Carbon Dioxide 30 (22-30) mmol/L BUN 15 (9-20) mg/dL Creatinine 0.91 (0.66-1.25) mg/dL Glucose 108 H (74-99) mg/dL Calcium 9.5 (8.4-10.2) mg/dL Thyroid panel 03/24/23 Range/Units 08:37 TSH 0.692 (0.465-4.680) mIU/L Calcium panel 03/24/23 Range/Units 08:37 Calcium 9.5 (8.4-10.2) mg/dL Pituitary panel 03/24/23 03/24/23 Range/Units 08:37 08:37 Sodium 135 L (137-145) mmol/L Potassium 4.4 (3.5-5.1) mmol/L Chloride 96 L (98-107) mmol/L Carbon Dioxide 30 (22-30) mmol/L BUN 15 (9-20) mg/dL Creatinine 0.91 (0.66-1.25) mg/dL Glucose 108 H (74-99) mg/dL Calcium 9.5 (8.4-10.2) mg/dL TSH 0.692 (0.465-4.680) mIU/L Adrenal panel 03/24/23 Range/Units 08:37 Sodium 135 L (137-145) mmol/L Potassium 4.4 (3.5-5.1) mmol/L Chloride 96 L (98-107) mmol/L Carbon Dioxide 30 (22-30) mmol/L BUN 15 (9-20) mg/dL Creatinine 0.91 (0.66-1.25) mg/dL Glucose 108 H (74-99) mg/dL Calcium 9.5 (8.4-10.2) mg/dL - Imaging Additional studies: Reviewed carotid Doppler which demonstrates 50-69% stenosis of the left ICA Assessment and Plan Assessment: Left ICA stenosis 50-69% Dizziness with near syncopal episodes Vertigo Hypertension Plan: Reviewed carotid Doppler with the patient in full detail which demonstrated 50- 69% stenosis of the left ICA. His dizziness is unlikely due to carotid stenosis and it does not appear that he is having TIAs or strokes. No surgical intervention is required at this time. I do agree with neurology and initiation of antiplatelet therapy. He is to follow-up in the office for continued monitoring of his carotid stenosis with 6 month to 1 year intervals. Thank you for the consultation. No further vascular surgical intervention at this time. Reevaluate as needed.
--- NOTE | 2023-03-24 17:53 | CA ---
Transthoracic Echo Report Name: Omar Lee Age: 82 Gender: M : 1940 Exam Date: 03/24/2023 12:40 Exam Location: [facility] Ht (in): 76 Wt (lb): 190 Ordering Physician: Marcela Ospina MD Attending/Referring Phys: Animal Care Technician Beatriz Aguiar RDCS Procedure CPT: Indications: dizziness, near syncope Cardiac Hx: Technical Quality: Fair Contrast 1: Total Dose (mL): Contrast 2: Total Dose (mL): MEASUREMENTS (Male / Female) Normal Values 2D ECHO LV Diastolic Diameter PLAX 4.4 cm 4.2 - 5.9 / 3.9 - 5.3 cm LV Systolic Diameter PLAX 2.3 cm IVS Diastolic Thickness 1.5 cm 0.6 - 1.0 / 0.6 - 0.9 cm LVPW Diastolic Thickness 1.6 cm 0.6 - 1.0 / 0.6 - 0.9 cm LV Relative Wall Thickness 0.7 LA Volume 63.8 cm??? 18 - 58 / 22 - 52 cm??? M-MODE Aortic Root Diameter MM 4.0 cm LA Systolic Diameter MM 4.2 cm LA Ao Ratio MM 1.0 AV Cusp Separation MM 1.8 cm DOPPLER AV Peak Velocity 179.1 cm/s AV Peak Gradient 12.8 mmHg AV Mean Velocity 133.0 cm/s AV Mean Gradient 7.7 mmHg AV Velocity Time Integral 43.0 cm LVOT Peak Velocity 189.1 cm/s LVOT Peak Gradient 14.3 mmHg LVOT Velocity Time Integral 41.1 cm MV Area PHT 2.5 cm??? Mitral E Point Velocity 86.2 cm/s Mitral A Point Velocity 78.0 cm/s Mitral E to A Ratio 1.1 MV Deceleration Time 307.0 ms MV E' Velocity 4.2 cm/s Mitral E to MV E' Ratio 20.4 FINDINGS Left Ventricle Moderately increased left ventricular wall thickness. Normal left ventricular systolic function with no obvious regional wall motion abnormalities. Left ventricular cavity size normal. Left ventricular ejection fraction is estimated at 55-60%. Right Ventricle Right ventricle not well visualized. Right Atrium Right atrium not well visualized. Left Atrium Mildly increased left atrial volume. Mildly increased left atrial area. Mitral Valve Structurally normal mitral valve. Mild mitral regurgitation. Aortic Valve No aortic valve stenosis or regurgitation. Tricuspid Valve Mild tricuspid regurgitation. Pulmonic Valve Trace pulmonic regurgitation. Pericardium No pericardial effusion. Aorta Mild Aortic dilatation. CONCLUSIONS Moderate increased left ventricular wall thickness Left ventricular ejection fraction 55-60% Mildly dilated left atrium Mild mitral regurgitation Previewed by: Dr. Florencio Hernandez DO (Electronically Signed) Final Date: 24 March 2023 17:52
[2023-03-24] MEDS: ATORVASTATIN 40 MG TAB PO SCH (20:33)
[2023-03-25] MEDS: VANCOMYCIN 1,500 MG in SODIUM CHLORIDE 0.9% 500 ML 500 ML IVPB SCH (04:24)
[2023-03-25] MEDS: PANTOPRAZOLE 40 MG TABLET PO SCH ×2 (06:28→16:38)
--- NOTE | 2023-03-25 06:53 | P.CONS ---
History of Present Illness - Reason for Consult Consult date: 03/24/23 Acute mastoiditis Requesting physician: Tabitha Mullen - Chief Complaint Dizziness and weakness x weeks - History of Present Illness Patient is a 82-year-old male with a past medical history relevant for hypertension hyperlipidemia history of prostate cancer reflux COPD presenting to the ER yesterday morning for evaluation of dizziness that has been progressively getting worse over the last 1 month patient symptom progressed to the point where patient thought he might pass out but the patient never passed out and no history of any fall or trauma patient denies having any fever or any chills and no fever has been recorded during this hospital stay patient denies any headache especially involving the right temporal area denies any problems with the right ear hearing or any drainage from the right ear patient denies having any chest pain patient did have baseline shortness of breath and cough from his COPD denies any worsening respiratory symptoms denies any nausea no vomiting no abdominal pain no vomiting diarrhea with the symptoms patient has been evaluated by the ER physician on arrival to the ER patient was afebrile and her fever has been recorded subsequently patient did have a normal white count creatinine has been normal liver enzymes are normal patient did have a chest x-ray no acute cardiopulmonary disease bullous emphysema changes predominantly right upper lung patient did have a CT of the brain mild to moderate generalized atrophy no acute abnormality did mention moderate chronic ethmoid sinus disease fluid and bilateral mastoid air cells and right middle ear cavity correlate for any pain to exclude mastoiditis or osteomyelitis patient was started on vancomycin and Rocephin infectious disease was consulted concern for possible acute mastoiditis with abnormal CT Review of Systems Positive point and negatives has been mentioned in the HPI, complete review of systems was performed and all other systems are negative Past Medical History Past Medical History: COPD, GERD/Reflux, Hyperlipidemia, Hypertension, Osteoarthritis (OA) Additional Past Medical History / Comment(s): Gout History of Any Multi-Drug Resistant Organisms: None Reported Past Surgical History: Heart Catheterization Past Anesthesia/Blood Transfusion Reactions: No Reported Reaction Past Psychological History: No Psychological Hx Reported Smoking Status: Former smoker Past Alcohol Use History: Occasional Past Drug Use History: None Reported - Past Family History Mother History Unknown: Yes Father History Unknown: Yes Medications and Allergies Home Medications Medication Instructions Recorded Confirmed Type Atenolol 50 mg PO BID@0800,1200 02/20/14 03/23/23 History Pantoprazole Sodium [Protonix] 40 mg PO BID 02/20/14 03/23/23 History Acetaminophen Tab [Tylenol] 650 mg PO Q6HR PRN tab 03/30/23 Rx Aspirin 81 mg PO DAILY tab 03/30/23 Rx Atorvastatin [Lipitor] 40 mg PO HS tab 03/30/23 Rx Cyanocobalamin [Vitamin B-12] 1,000 mcg PO DAILY tab 03/30/23 Rx Losartan [Cozaar] 25 mg PO DAILY tab 03/30/23 Rx Meclizine [Antivert] 25 mg PO TID PRN #30 tab 03/30/23 Rx Sennosides [Senokot] 8.6 mg PO BID tab 03/30/23 Rx Tamsulosin [Flomax] 0.4 mg PO PC-[id number] cap 03/30/23 Rx bisacodyL [Dulcolax] 10 mg RECTAL DAILY PRN suppositor 03/30/23 Rx Allergies Allergy/AdvReac Type Severity Reaction Status Date / Time No Known Allergies Allergy Verified 03/23/23 12:40 Physical Exam Vitals: Vital Signs Temp Pulse Pulse Resp BP BP BP 03/24/23 04:00 54 L 18 175/83 03/23/23 23:53 59 L 16 187/83 03/23/23 20:00 97.9 F 59 L 16 145/76 03/23/23 15:03 98.1 F 68 16 171/93 03/23/23 15:00 68 03/23/23 14:42 61 20 177/91 03/23/23 12:47 64 20 203/103 03/23/23 10:55 174/87 159/82 03/23/23 10:30 98.4 F 69 20 169/81 BP Pulse Ox 03/24/23 04:00 97 03/23/23 23:53 94 L 03/23/23 20:00 94 L 03/23/23 15:03 97 03/23/23 15:00 03/23/23 14:42 97 03/23/23 12:47 98 03/23/23 10:55 167/83 03/23/23 10:30 99 Intake and Output 03/23/23 03/24/23 03/24/23 22:59 06:59 14:59 Intake Total 1260 540 Output Total 600 Balance 1260 -60 Intake: Intake, IV Titration 600 Amount Vancomycin 1,500 mg In 500 Sodium Chloride 0.9% 500 ml 500 ml @ 167 mls/hr IVPB Q16H [facility] Rx#: [id number] cefTRIAXone 1 gm In 100 Sodium Chloride 0.9% 50 ml @ 100 mls/hr IVPB Q24HR [facility] Rx#:[id number] Oral 660 540 Output: Urine 600 Other: Voiding Method External Catheter External Catheter Weight 86.183 kg GENERAL DESCRIPTION: Elderly male lying in bed, no distress. No tachypnea or accessory muscle of respiration use. HEENT: Shows Pallor , no scleral icterus. Oral mucous membrane is dry. No pharyngeal erythema or thrush NECK: Trachea central, no thyromegaly. LUNGS: Unlabored breathing. Clear to auscultation anteriorly. No wheeze or crackle. HEART: S1, S2, regular rate and rhythm. No loud murmur ABDOMEN: Soft, no tenderness , guarding or rigidity, no organomegaly EXTREMITIES: No edema of feet. SKIN: No rash, no masses palpable. NEUROLOGICAL: The patient is awake, alert, oriented x3, mood and affect normal. Results CBC & Chem 7: 03/30/23 07:27 03/30/23 07:27 Labs: Abnormal Lab Results - Last 24 Hours (Table) 03/23/23 03/23/23 Range/Units 10:58 10:58 Plt Count 553 H (150-450) k/uL Sodium 136 L (137-145) mmol/L Chloride 96 L (98-107) mmol/L Carbon Dioxide 31 H (22-30) mmol/L BUN 21 H (9-20) mg/dL Glucose 105 H (74-99) mg/dL Assessment and Plan (1) Abnormal CT of brain Status: Acute Code(s): R90.89 - OTH ABNORMAL FINDINGS ON DIAGNOSTIC IMAGING OF CNSL SNOMED Code(s): 443756461 (2) Leukocytosis Status: Acute Code(s): D72.829 - ELEVATED WHITE BLOOD CELL COUNT, UNSPECIFIED SNOMED Code(s): 606318177 Plan: 1patient presented to hospital with generalized weakness and dizziness patient denies having any ataxia patient denies having any pain to the right temporal area no problem with the right ear as well as hearing or drainage patient did not have any fever or elevated white count, and patient did not have any ten derness ON examination to the temporal bone more likely CT findings are incidental finding and clinically not behaving as mastoiditis or middle ear infection 2-we will check inflammatory markers and cultures 3-May continue Vanco Rocephin at this point while waiting for the work-up to be completed We will follow on clinical condition and cultures to further adjust medication if needed Thank you for this consultation we will follow the patient along with you Time with Patient: Greater than 30
[2023-03-25] MEDS: ASPIRIN 81 MG PO SCH (07:58)
[2023-03-25] MEDS: hydrALAZINE HCL 25 MG TAB PO SCH ×2 (07:58→20:17)
[2023-03-25] MEDS: hydroCHLOROthiazide 25 MG TAB PO SCH (07:58)
[2023-03-25] MEDS: MECLIZINE 25 MG TAB PO SCH ×3 (07:58→20:17)
[2023-03-25] MEDS: atenoloL 50 MG TAB PO SCH ×2 (07:58→11:36)
[2023-03-25] MEDS: LOSARTAN 50 MG TAB PO SCH (11:36)
--- NOTE | 2023-03-25 13:48 | P.PN ---
Subjective Progress Note Date: 03/24/23 82-year-old male who presents emergency Department complaining of dizziness for a month. Patient states again progressively worse to the point where he feels like is given a passout and time. Patient states she's never passed out. Patient states he feels as though he has to grab onto something and he does and though he does not pass out he doesn't feel as though it improved his dizziness. Patient states he lies down he never occurs per patient denies any chest pain difficulty breathing shortness of breath. Patient denies any palpations. Patient has a headache patient denies numbness or weakness. Patient denies any other symptoms at this time. Patient initially thought was vertigo but says it continues he's thinking it might be something worse. Blood work completed in ED reveals a WBC of 8.7, hemoglobin of 15.3 and platelet count of 553, sodium 136, potassium 4.8, BUN/creatinine of 21/1.14, blood glucose of 105, troponin of 0.012 EKG shows a sinus rhythm at 70 bpm NE interval is 264 QRS is 91 QT interval 418 QTC is 439. Patient's EKG shows no ST segment elevation or depression. CT of the head reveals mild to moderate generalized atrophy with no acute intracranial abnormality, moderate chronic ethmoid sinus disease, fluid in bilateral mastoid air cells and right middle ear correlate for mastoiditis/otomastoiditis Objective - Vital Signs Vital signs: Vital Signs Temp 97.4 F L 03/24/23 11:01 Pulse 68 03/24/23 11:01 Resp 18 03/24/23 11:01 BP 184/87 03/24/23 11:01 Pulse Ox 96 03/24/23 11:01 FiO2 Intake & Output 03/23/23 03/24/23 03/24/23 18:59 06:59 18:59 Intake Total 120 1680 130 Output Total 600 400 Balance 120 1080 -270 Weight 86.183 kg 86.183 kg Intake: IV 10 Invasive Line 1 10 Intake, IV Titration 600 Amount Vancomycin 1,500 mg In 500 Sodium Chloride 0.9% 500 ml 500 ml @ 167 mls/hr IVPB Q16H [facility] Rx#: [id number] cefTRIAXone 1 gm In 100 Sodium Chloride 0.9% 50 ml @ 100 mls/hr IVPB Q24HR [facility] Rx#:[id number] Oral 120 1080 120 Output: Urine 600 400 Other: Voiding Method External Catheter External Catheter External Catheter - Exam GENERAL: The patient is alert and oriented x3, not in any acute distress. Well developed, well nourished. HEENT: Pupils are round and equally reacting to light. EOMI. No scleral icterus. No conjunctival pallor. Normocephalic, atraumatic. No pharyngeal erythema. No thyromegaly. CARDIOVASCULAR: S1 and S2 present. No murmurs, rubs, or gallops. PULMONARY: Chest is clear to auscultation, no wheezing or crackles. ABDOMEN: Soft, nontender, nondistended, normoactive bowel sounds. No palpable organomegaly. MUSCULOSKELETAL: No joint swelling or deformity. EXTREMITIES: No cyanosis, clubbing, or pedal edema. NEUROLOGICAL: Gross neurological examination did not reveal any focal deficits. SKIN: No rashes. - Labs CBC & Chem 7: 03/24/23 08:37 03/24/23 08:37 Labs: Abnormal Lab Results - Last 24 Hours (Table) 03/24/23 03/24/23 Range/Units 08:37 08:37 RDW 17.1 H (11.5-15.5) % Plt Count 598 H (150-450) k/uL Sodium 135 L (137-145) mmol/L Chloride 96 L (98-107) mmol/L Glucose 108 H (74-99) mg/dL Assessment and Plan Assessment: 1. Near syncope - Workup completed in ED including an EKG and CT of the brain has been unremarkable - We will consult neurology for further recommendations 2. Dizziness; etiology unclear; possible vertigo - Patient has been placed on meclizine to be used when necessary 3. Acute Mastoiditis; start patient on IV vancomycin/Rocephin; consult ID for further recommendations 4. Mild renal injury/dehydration; started slow IV fluid hydration with normal saline; monitor strict ADE's, daily weights, renal function and electrolytes; avoid nephrotoxins and hypotension 5. Hypertension; Atenolol 50 mg by mouth twice a day; hydralazine 25 mg twice a day, height her diet. ALT 25 mg daily and Cozaar 100 mg daily 6. Hyperlipidemia; Lipitor 40 mg by mouth daily at bedtime 7. Gastroesophageal reflux disease; Protonix 40 mg twice a day
[2023-03-25 16:09] LABS: African American GFR (CKD) 80 (>60 ml/min/1.73 sqM); Non-African American GFR(CKD) 69 (>60 ml/min/1.73 sqM)
[2023-03-25] MEDS: ATORVASTATIN 40 MG TAB PO SCH (20:17)
[2023-03-26] MEDS: PANTOPRAZOLE 40 MG TABLET PO SCH ×2 (06:10→16:47)
--- NOTE | 2023-03-26 07:14 | P.PN ---
Subjective Progress Note Date: 03/25/23 Principal diagnosis: abnormal CT ?mastoiditis Patient is a 82-year-old male with a past medical history relevant for hypertension hyperlipidemia history of prostate cancer reflux COPD presenting to the ER for evaluation of dizziness that has been progressively getting worse, did have CT brain and concern for possible Right middle ear fluid and possible mastoiditis on todays Evaluation that is 03/25/2023 , Pt denies any fever , pt denies pain to the Right ear or any drainage , no chest pain , shortness of breath , no vomiting or diarrhea Objective - Vital Signs Vital signs: Vital Signs Temp 98.8 F 03/25/23 11:35 Pulse 60 03/25/23 11:35 Resp 17 03/25/23 11:35 BP 175/90 03/25/23 11:35 Pulse Ox 95 03/25/23 11:35 FiO2 Intake & Output 03/24/23 03/25/23 03/25/23 18:59 06:59 18:59 Intake Total 1040 540 560 Output Total 1150 Balance -110 540 560 Weight 86.183 kg Intake: IV 250 10 .9 @ 20 240 Invasive Line 1 10 10 Intake, IV Titration 550 550 Amount Vancomycin 1,500 mg In 500 500 Sodium Chloride 0.9% 500 ml 500 ml @ 167 mls/hr IVPB Q16H [facility] Rx#: [id number] cefTRIAXone 1 gm In 50 50 Sodium Chloride 0.9% 50 ml @ 100 mls/hr IVPB Q24HR [facility] Rx#:[id number] Oral 240 540 0 Output: Urine 1150 Other: Voiding Method External Catheter External Catheter External Catheter # Bowel Movements 1 - Exam GENERAL DESCRIPTION: Elderly male lying in bed in no distress RESPIRATORY SYSTEM: Unlabored breathing , decreased breath sounds at bases HEART: S1 S2 regular rate and rhythm ,no loud murmurs ABDOMEN: Soft , no tenderness EXTREMITIES: No edema feet - Labs CBC & Chem 7: 03/24/23 08:37 03/25/23 15:27 Labs: Abnormal Lab Results - Last 24 Hours (Table) 03/24/23 Range/Units 08:37 Hemoglobin A1c 6.1 H (<=6.0) % Assessment and Plan (1) Abnormal CT of brain Current Visit: Yes Status: Acute Code(s): R90.89 - OTH ABNORMAL FINDINGS ON DIAGNOSTIC IMAGING OF CNSL SNOMED Code(s): 166128295 Plan: 1patient presented to hospital with generalized weakness and dizziness patient denies having any ataxia patient denies having any pain to the right temporal area no problem with the right ear as well as hearing or drainage patient did not have any fever or elevated white count, and patient did not have any tenderness ON examination to the temporal bone more likely CT findings are incidental finding and clinically not behaving as mastoiditis or middle ear infection 2-Pt did have normal inflammatory markers making it unlikely to be mastoiditis 3-we will stop Vanco Rocephin and monitor pt closely off antibiotics Time with Patient: Less than 30
[2023-03-26] MEDS: hydroCHLOROthiazide 25 MG TAB PO SCH (07:46)
[2023-03-26] MEDS: atenoloL 50 MG TAB PO SCH ×2 (07:46→11:31)
[2023-03-26] MEDS: ASPIRIN 81 MG PO SCH (07:46)
[2023-03-26] MEDS: hydrALAZINE HCL 25 MG TAB PO SCH ×3 (07:46→21:43)
[2023-03-26] MEDS: MECLIZINE 25 MG TAB PO SCH ×3 (07:46→21:43)
[2023-03-26 08:53] LABS: African American GFR (CKD) 55 (>60 ml/min/1.73 sqM); Non-African American GFR(CKD) 48 (>60 ml/min/1.73 sqM)
[2023-03-26] MEDS ORDERED: VANCOMYCIN TROUGH DUE 1 EACH MISC MISCELLANE ONE (10:00)
--- NOTE | 2023-03-26 11:04 | P.PN ---
Subjective Progress Note Date: 03/26/23 Patient is seen and examined sitting up in bed. He denies any focal deficits or the night. No acute changes. Patient states that he is still having dizziness when he stands up. Infectious disease is following for possible right middle ear fluid and possible mastoiditis. Antibiotics were discontinued as patient had normal inflammatory markers. Objective - Vital Signs Vital signs: Vital Signs Temp 98.3 F 03/26/23 08:00 Pulse 67 03/26/23 08:00 Resp 18 03/26/23 08:00 BP 171/79 03/26/23 08:00 Pulse Ox 94 L 03/26/23 08:00 FiO2 Intake & Output 03/25/23 03/26/23 03/26/23 18:59 06:59 18:59 Intake Total 670 550 0 Output Total 325 400 75 Balance 345 150 -75 Intake: IV 20 10 Invasive Line 1 20 10 Intake, IV Titration 550 Amount Vancomycin 1,500 mg In 500 Sodium Chloride 0.9% 500 ml 500 ml @ 167 mls/hr IVPB Q16H [facility] Rx#: [id number] cefTRIAXone 1 gm In 50 Sodium Chloride 0.9% 50 ml @ 100 mls/hr IVPB Q24HR [facility] Rx#:[id number] Oral 100 540 0 Output: Urine 325 400 75 Other: Voiding Method External Catheter External Catheter External Catheter # Bowel Movements 1 - Exam General appearance: The patient is alert, oriented, appears in no acute distress. HET: Head is normocephalic and atraumatic. Pupils are equal and reactive. Neck: Supple. Heart: Regular. Lungs: Equal expansion, normal respiratory effort. Abdomen: Soft, nontender, nondistended. Extremities: Normal skin color and turgor. Neurological: No focal deficits. Strength and sensation are 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. - Labs CBC & Chem 7: 03/24/23 08:37 03/26/23 08:20 Labs: Abnormal Lab Results - Last 24 Hours (Table) 03/26/23 Range/Units 08:20 Creatinine 1.36 H (0.66-1.25) mg/dL Assessment and Plan Assessment: 1. Left ICA stenosis 50-69% 2. Dizziness with near syncopal episodes 3. Vertigo 4. Hypertension Plan: Carotid Doppler reviewed with patient demonstrating 50-69% stenosis of the left ICA per Dr. Martinez. Dizziness unlikely due to carotid stenosis without any symptoms of TIA or stroke. No surgical intervention required at this time. Continue antiplatelet therapy. Follow-up in the office for carotid stenosis with six-month to one-year interval. No further vascular surgical intervention at this time. Thank you for this consultation, we will sign off at this time. The impression and plan of care has been dictated as directed. I performed a history and examination of this patient, discussed the same with the dictator. I agree with the dictator's note ,documented as a scribe. Any additional findings or plans will be noted.
[2023-03-26] MEDS: LOSARTAN 50 MG TAB PO SCH (11:31)
--- NOTE | 2023-03-26 13:55 | MR ---
EXAMINATION TYPE: MR angio neck wo con DATE OF EXAM: 03/26/2023 COMPARISON: 03/23/2023 ultrasound HISTORY: Syncope, carotid stenosis CONTRAST: None TECHNIQUE: Multiplanar multiecho imaging on a 3.0 Angie magnet is performed through the carotid bifur cations 3-D [id number] imaging is performed. Source images are reviewed on the computer in the a xial plane. Reconstructed images rotating on the computer are reviewed. There is some slab artifact causing mild limitation. FINDINGS: No flow gaps are evident. Significant flow-limiting stenosis is not identified. Significant turbulent flow at the carotid bulbs or left internal carotid artery is not identified on these images. The lef t vertebral artery is dominant. Findings appear to correlate with the ultrasound findings. IMPRESSIONS: 1. No significant flow-limiting stenosis.
--- NOTE | 2023-03-26 14:02 | MR ---
EXAMINATION TYPE: MR brain wo/w con DATE OF EXAM: 03/26/2023 1:17 PM COMPARISON: NONE HISTORY: dizziness CONTRAST: Patient received 9 mL intravenous gadolinium contrast. Multiplanar and multispin-echo imaging of the brain was performed . Pre and post contrast enhanced i mages are obtained. The ventricles, basal cisterns and sulci overlying the cerebral convexities are mildly enlarged. There is evidence of mild periventricular white matter ischemic demyelination. Remote deep white matter insults are also noted. No acute edema is seen on diffusion weighted imaging. There is no evidence for midline shift or mass effect. Acute intracranial hemorrhage or extra-axial collection is not evident. No enhancing lesions are seen. Moderate changes of chronic mastoiditis right greater than left. Retention cyst or polyp within the s phenoid sinus. IMPRESSION: Age-related atrophic and chronic small vessel ischemic change. No acute intracranial process at this time. No enhancing lesions are seen.
--- NOTE | 2023-03-26 21:12 | P.PN ---
Subjective Progress Note Date: 03/26/23 82-year-old male who presents emergency Department complaining of dizziness for a month. Patient states again progressively worse to the point where he feels like is given a passout and time. Patient states she's never passed out. Patient states he feels as though he has to grab onto something and he does and though he does not pass out he doesn't feel as though it improved his dizziness. Patient states he lies down he never occurs per patient denies any chest pain difficulty breathing shortness of breath. Patient denies any palpations. Patient has a headache patient denies numbness or weakness. Patient denies any other symptoms at this time. Patient initially thought was vertigo but says it continues he's thinking it might be something worse. Blood work completed in ED reveals a WBC of 8.7, hemoglobin of 15.3 and platelet count of 553, sodium 136, potassium 4.8, BUN/creatinine of 21/1.14, blood glucose of 105, troponin of 0.012 EKG shows a sinus rhythm at 70 bpm [place] interval is 264 QRS is 91 QT interval 418 QTC is 439. Patient's EKG shows no ST segment elevation or depression. CT of the head reveals mild to moderate generalized atrophy with no acute intracranial abnormality, moderate chronic ethmoid sinus disease, fluid in bilateral mastoid air cells and right middle ear correlate for mastoiditis/otomastoiditis 03/26/2023 Patient seen and evaluated in follow-up today with vascular surgery, neurology, infectious disease following. IV antibiotics have been discontinued per ID recommendations monitoring the patient closely off antibiotic therapy. Patient also was evaluated by vascular surgery no plans for intervention at this time recommending outpatient follow-up in the next 6 months. Patient scheduled to undergo MRA and MRI of the brain which is currently pending for today. Patient continues with dizziness and poorly controlled blood pressure. Adjustments being made to medications and will monitor blood pressures closely. Recommend discontinuing losartan and will increase hydralazine. Patient with some generalized weakness will have physical therapy evaluate the patient for possible ECF. Patient is currently afebrile with no reports of chest pain or palpitations noted. No reports of nausea or vomiting and patient tolerating diet. Patient does continue to report dizziness with standing. Blood pressure is elevated this morning Review of systems: Constitutional: No reports of fatigue, fever, or chills Cardiovascular: No reports of chest pain or palpitations Respiratory: No reports of shortness of breath or cough GI: No reports of nausea, vomiting, or diarrhea : No reports of dysuria or retention Neurovascular: reports of generalized weakness and continued dizziness with standing All medications have been reviewed Physical exam: GENERAL: The patient is alert and oriented x3, not in any acute distress. Well developed, well nourished. HEENT: Pupils are round and equally reacting to light. EOMI. No scleral icterus. No conjunctival pallor. Normocephalic, atraumatic. No pharyngeal erythema. No thyromegaly. CARDIOVASCULAR: S1 and S2 present. No murmurs, rubs, or gallops. PULMONARY: Chest is clear to auscultation, no wheezing or crackles. ABDOMEN: Soft, nontender, nondistended, normoactive bowel sounds. No palpable organomegaly. MUSCULOSKELETAL: No joint swelling or deformity. EXTREMITIES: No cyanosis, clubbing, or pedal edema. NEUROLOGICAL: Gross neurological examination did not reveal any focal deficits. Diffusely weak SKIN: No rashes. Assessment: -Near syncope -Dizziness; etiology unclear; possible vertigo -Acute Mastoiditis although suspicion is low and being monitored per ID recommendations off antibiotic therapy -Mild renal injury/dehydration -Gait dysfunction -Hypertension, uncontrolled -Hyperlipidemia -Gastroesophageal reflux disease -GI prophylaxis -DVT prophylaxis -No code Plan: Will adjust blood pressure medications as blood pressure continues to be elevated and uncontrolled. Patient feels his symptoms are related to his blood pressure and reports he feels uncontrolled as well Patient with generalized weakness will have physical therapy evaluate the patient for possible ECF. Case management consulted to discuss possible ECF Will await PT/OT therapy evaluation Patient being monitored with infectious disease following closely off antibiotic therapy as inflammatory markers were negative Neurology following as well and currently MRI and MRA is pending and will await report and discuss further with neurology Possible discharge in the next 24-48 hours The impression and plan of care has been dictated by Saadia Deleon, Nurse Practitioner as directed. Dr. Sunny MD I have performed a history and examination and MDM of this patient, discussed the same with the dictator, and agree with the dictator's assessment and plan as written ,documented as a scribe. Based on total visit time, I have performed more than 50% of the visit. Objective - Vital Signs Vital signs: Vital Signs Temp 98.1 F 03/25/23 20:00 Pulse 69 03/26/23 04:00 Resp 16 03/26/23 04:00 BP 172/87 03/26/23 04:00 Pulse Ox 93 L 03/26/23 04:00 FiO2 Intake & Output 03/25/23 03/26/23 03/26/23 18:59 06:59 18:59 Intake Total 670 550 0 Output Total 325 400 Balance 345 150 0 Intake: IV 20 10 Invasive Line 1 20 10 Intake, IV Titration 550 Amount Vancomycin 1,500 mg In 500 Sodium Chloride 0.9% 500 ml 500 ml @ 167 mls/hr IVPB Q16H [facility] Rx#: [id number] cefTRIAXone 1 gm In 50 Sodium Chloride 0.9% 50 ml @ 100 mls/hr IVPB Q24HR [facility] Rx#:[id number] Oral 100 540 0 Output: Urine 325 400 Other: Voiding Method External Catheter External Catheter # Bowel Movements 1 - Labs CBC & Chem 7: 03/24/23 08:37 03/26/23 08:20 Labs: Abnormal Lab Results - Last 24 Hours (Table) 03/26/23 Range/Units 08:20 Creatinine 1.36 H (0.66-1.25) mg/dL
[2023-03-26] MEDS: ATORVASTATIN 40 MG TAB PO SCH (21:43)
--- NOTE | 2023-03-26 22:42 | P.PN ---
Subjective Progress Note Date: 03/26/23 Principal diagnosis: abnormal CT ?mastoiditis Patient is a 82-year-old male with a past medical history relevant for hypertension hyperlipidemia history of prostate cancer reflux COPD presenting to the ER for evaluation of dizziness that has been progressively getting worse, did have CT brain and concern for possible Right middle ear fluid and possible mastoiditis on todays Evaluation that is 03/26/2023, the patient denies having any fever or any chills patient is breathing comfortably he denies any pain to the right ear area no nausea no vomiting no abdominal pain and no diarrhea Objective - Vital Signs Vital signs: Vital Signs Temp 98 F 03/26/23 11:42 Pulse 61 03/26/23 11:42 Resp 16 03/26/23 11:42 BP 187/87 03/26/23 11:42 Pulse Ox 96 03/26/23 11:42 FiO2 Intake & Output 03/25/23 03/26/23 03/26/23 18:59 06:59 18:59 Intake Total 670 550 0 Output Total 325 400 75 Balance 345 150 -75 Intake: IV 20 10 Invasive Line 1 20 10 Intake, IV Titration 550 Amount Vancomycin 1,500 mg In 500 Sodium Chloride 0.9% 500 ml 500 ml @ 167 mls/hr IVPB Q16H [facility] Rx#: [id number] cefTRIAXone 1 gm In 50 Sodium Chloride 0.9% 50 ml @ 100 mls/hr IVPB Q24HR [facility] Rx#:[id number] Oral 100 540 0 Output: Urine 325 400 75 Other: Voiding Method External Catheter External Catheter External Catheter # Bowel Movements 1 - Exam GENERAL DESCRIPTION: Elderly male lying in bed in no distress RESPIRATORY SYSTEM: Unlabored breathing , decreased breath sounds at bases HEART: S1 S2 regular rate and rhythm ,no loud murmurs ABDOMEN: Soft , no tenderness EXTREMITIES: No edema feet - Labs CBC & Chem 7: 03/24/23 08:37 03/26/23 08:20 Labs: Abnormal Lab Results - Last 24 Hours (Table) 03/26/23 Range/Units 08:20 Creatinine 1.36 H (0.66-1.25) mg/dL Assessment and Plan (1) Abnormal CT of brain Current Visit: Yes Status: Acute Code(s): R90.89 - OTH ABNORMAL FINDINGS ON DIAGNOSTIC IMAGING OF CNSL SNOMED Code(s): 115170387 Plan: 1patient presented to hospital with generalized weakness and dizziness patient denies having any ataxia patient denies having any pain to the right temporal area no problem with the right ear as well as hearing or drainage patient did not have any fever or elevated white count, and patient did not have any tenderness ON examination to the temporal bone more likely CT findings are incidental finding and clinically not behaving as mastoiditis or middle ear infection 2-Pt did have normal inflammatory markers making it unlikely to be mastoiditis 3-Patient seem to be doing well off antibiotic therapy and the patient will monitor closely off antibiotic at this point Time with Patient: Less than 30
[2023-03-27] MEDS: PANTOPRAZOLE 40 MG TABLET PO SCH ×2 (06:48→17:09)
[2023-03-27 07:21] LABS: Anisocytosis Slight; Basophils % (A) 0 %; Eosinophils % (A) 0 %; HCT 47.1 % (39.0-53.0); Lymphocytes # (A) 1.3 k/uL (1.0-4.8); Lymphocytes % (A) 8 %; MCH 31.3 pg (25.0-35.0); MCHC 33.9 g/dL (31.0-37.0); MCV 92.4 fL (80.0-100.0); Mean Platelet Volume 7.9; Monocytes # (A) 1.2 k/uL (0-1.0); Monocytes % (A) 7 %; Neutrophils # (A) 14.5 k/uL (1.3-7.7); Neutrophils % (A) 84 %; Platelet Count 623 k/uL (150-450); RDW 16.7 % (11.5-15.5); WBC 17.3 k/uL (3.8-10.6)
[2023-03-27 07:53] LABS: African American GFR (CKD) 39 (>60 ml/min/1.73 sqM); Anion Gap 12 mmol/L; Blood Urea Nitrogen 29 mg/dL (9-20); Calcium 9.2 mg/dL (8.4-10.2); Carbon Dioxide 26 mmol/L (22-30); Chloride 94 mmol/L (98-107); Glucose 128 mg/dL (74-99); Non-African American GFR(CKD) 34 (>60 ml/min/1.73 sqM); Sodium 132 mmol/L (137-145)
[2023-03-27] MEDS: hydrALAZINE HCL 25 MG TAB PO SCH ×3 (10:01→21:50)
[2023-03-27] MEDS: MECLIZINE 25 MG TAB PO SCH ×3 (10:01→21:50)
[2023-03-27] MEDS: ASPIRIN 81 MG PO SCH (10:02)
[2023-03-27] MEDS: atenoloL 50 MG TAB PO SCH ×2 (10:02→12:17)
--- NOTE | 2023-03-27 10:32 | XR ---
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 No discrete pleural edge to suggest a pneumothorax here. Focal left apical thickening redemonstrated. Underlying large hiatal hernia agai n noted. Patchy interstitial densities in the bilateral lower lungs have increased from prior. Impression: 1. COPD with severe bullous change in the right upper lobe redemonstrated. 2. Mild patchy interstitial infiltrates at the lung bases are new. Correlate to exclude CHF with eliz y atypical interstitial edema versus infectious or aspiration pneumonitis. 3. Unchanged left apical pleural thickening for which surveillance follow-up can ensure stability. 4. Known large hiatal hernia.
--- NOTE | 2023-03-27 10:42 | P.PN ---
Subjective Progress Note Date: 03/26/23 Patient was seen for a follow-up. Patient is laying comfortably in the bed. Patient stated that he gets dizzy every time that he stands up. He loses balance [id number]. He does not know if he passes out or falls down. Objective - Vital Signs Vital signs: Vital Signs Temp 98.2 F 03/26/23 16:00 Pulse 64 03/26/23 16:00 Resp 18 03/26/23 16:00 BP 184/86 03/26/23 16:00 Pulse Ox 95 03/26/23 16:00 FiO2 Intake & Output 03/26/23 03/26/23 03/27/23 06:59 18:59 06:59 Intake Total 550 1198 Output Total 400 75 Balance 150 1123 Intake: IV 10 Invasive Line 1 10 Oral 540 1198 Output: Urine 400 75 Other: Voiding Method External Catheter External Catheter - Exam Patient is alert and oriented 3. No aphasia. Patient is blind over the right eye. Visual medina full on the left. No facial weakness noted dysarthria. On muscle strength testing, the strength is normal in the arms and legs except deltoids which are weak bilaterally from rotator cuff tear. In the lower limbs hip flexion is 4+5-bilaterally, ankle dorsiflexion is 5 bilaterally. Patient has hammertoes and high arched feet. - Labs CBC & Chem 7: 03/27/23 06:35 03/27/23 06:35 Labs: Abnormal Lab Results - Last 24 Hours (Table) 03/26/23 Range/Units 08:20 Creatinine 1.36 H (0.66-1.25) mg/dL Assessment and Plan Assessment: * 82-year-old male with 1 month history of dizziness on standing up, like near syncopal symptoms. Patient denies any vertigo, denies any symptoms when sitting, laying or when rolling over in the bed. Orthostatics checked were negative. * Hypertension * CT head showed possibility of otomastoiditis * High arched feet, hammer toes * Hyperlipidemia * Osteoarthritis Plan: * Carotid Doppler revealed 50-69% stenosis of left carotid bifurcation peak systolic velocity which is borderline. Less than 50% stenosis on the right carotid bifurcation. * 2-D echo revealed moderate increased left-ventricular wall thickness, LV EF 55-60%. Mildly dilated left atrium. Mild MR. * Repeat orthostatics showed supine blood pressure 184/87, pulse rate 68, sitting 175/102 with pulse rate of 80 and standing 167/78 with pulse rate of 85. Orthostatics negative. * MRI brain showed age-related atrophic and chronic small vessel ischemic change. No acute process. I personally reviewed MRI agree with the findings. * MRA of the neck showed no significant flow limiting stenosis. * Patient does have hammertoes and high arched feet, therefore some component of imbalance and dizziness may be related to peripheral neuropathy. Patient may benefit from EMG and nerve conduction of bilateral lower limbs. * Optimize control of blood pressure. * B12 329, folate 14.9, TSH 0.69, hemoglobin A1c 6.1. Vitamin B12 level is borderline, we will start B12 replacement. * Continue Lipitor 40 mg daily. Start aspirin 81 mg daily. Patient was not on any antiplatelet medication at home. He does have multiple vascular risk factors. * CT head revealed possibility of otomastoiditis. ID input appreciated. Antibiotics discontinued. May consider ENT consult outpatient for evaluation of vestibular functions. * Patient has been mostly laying in the bed. Patient was strongly recommended to stay in the recliner at least 4-8 hours a day. This will help with improving postural reflexes. PT OT. * Patient may benefit from subacute rehab. Neurologically, no other workup indicated.
[2023-03-27] MEDS: CYANOCOBALAMIN 500 MCG TAB PO SCH (12:17)
[2023-03-27] MEDS ORDERED: FUROSEMIDE 10 MG/ML 4 ML VIAL IV STA (15:13)
--- NOTE | 2023-03-27 15:32 | P.PN ---
Subjective Progress Note Date: 03/27/23 82-year-old male who presents emergency Department complaining of dizziness for a month. Patient states again progressively worse to the point where he feels like is given a passout and time. Patient states she's never passed out. Patient states he feels as though he has to grab onto something and he does and though he does not pass out he doesn't feel as though it improved his dizziness. Patient states he lies down he never occurs per patient denies any chest pain difficulty breathing shortness of breath. Patient denies any palpations. Patient has a headache patient denies numbness or weakness. Patient denies any other symptoms at this time. Patient initially thought was vertigo but says it continues he's thinking it might be something worse. Blood work completed in ED reveals a WBC of 8.7, hemoglobin of 15.3 and platelet count of 553, sodium 136, potassium 4.8, BUN/creatinine of 21/1.14, blood glucose of 105, troponin of 0.012 EKG shows a sinus rhythm at 70 bpm [place] interval is 264 QRS is 91 QT interval 418 QTC is 439. Patient's EKG shows no ST segment elevation or depression. CT of the head reveals mild to moderate generalized atrophy with no acute intracranial abnormality, moderate chronic ethmoid sinus disease, fluid in bilateral mastoid air cells and right middle ear correlate for mastoiditis/otomastoiditis 03/26/2023 Patient seen and evaluated in follow-up today with vascular surgery, neurology, infectious disease following. IV antibiotics have been discontinued per ID recommendations monitoring the patient closely off antibiotic therapy. Patient also was evaluated by vascular surgery no plans for intervention at this time recommending outpatient follow-up in the next 6 months. Patient scheduled to undergo MRA and MRI of the brain which is currently pending for today. Patient continues with dizziness and poorly controlled blood pressure. Adjustments being made to medications and will monitor blood pressures closely. Recommend discontinuing losartan and will increase hydralazine. Patient with some generalized weakness will have physical therapy evaluate the patient for possible ECF. Patient is currently afebrile with no reports of chest pain or palpitations noted. No reports of nausea or vomiting and patient tolerating diet. Patient does continue to report dizziness with standing. Blood pressure is elevated this morning 03/27/2023 Patient is seen and evaluated in follow-up today continuing to report dizziness being followed by physical therapy along with infectious disease and neurology. Patient may likely need vestibular rehab in the outpatient setting and ENT consultation. Patient did have a spike in white blood count above 17 today although is afebrile and denies chest pain or shortness of breath. Will obtain urinalysis as well as a chest x-ray. BNP ordered and pending as well. Patient is being monitored off antibiotics and not getting up and moving around much may be a component of atelectasis. Encourage oral intake and recommend physical therapy daily. Case management is following as patient is agreeable to rehab and may go to [facility]. Will follow up on labs as kidney functions are elevated and repeat labs in a.m. Review of systems: Constitutional: No reports of fatigue, fever, or chills Cardiovascular: No reports of chest pain or palpitations Respiratory: No reports of shortness of breath or cough GI: No reports of nausea, vomiting, or diarrhea : No reports of dysuria or retention Neurovascular: reports of generalized weakness and continued dizziness with standing and position changes All medications have been reviewed Physical exam: GENERAL: The patient is alert and oriented x3, not in any acute distress. Well developed, well nourished. HEENT: Pupils are round and equally reacting to light. EOMI. No scleral icterus. No conjunctival pallor. Normocephalic, atraumatic. No pharyngeal erythema. No thyromegaly. CARDIOVASCULAR: S1 and S2 present. No murmurs, rubs, or gallops. PULMONARY: Chest is clear to auscultation, no wheezing or crackles. ABDOMEN: Soft, nontender, nondistended, normoactive bowel sounds. No palpable organomegaly. MUSCULOSKELETAL: No joint swelling or deformity. EXTREMITIES: No cyanosis, clubbing, or pedal edema. NEUROLOGICAL: Gross neurological examination did not reveal any focal deficits. Diffusely weak SKIN: No rashes. Assessment: -Near syncope -Dizziness; etiology unclear; possible vertigo -Acute Mastoiditis although suspicion is low and being monitored per ID recommendations off antibiotic therapy -Leukocytosis, possibly secondary to atelectasis -Mild renal injury/dehydration -Gait dysfunction -Hypertension, uncontrolled -Hyperlipidemia -Gastroesophageal reflux disease -GI prophylaxis -DVT prophylaxis -No code Plan: Patient did have a chest x-ray today showing some COPD with severe bullous change in the right upper lobe redemonstrated with mild patchy interstitial infiltrates at the lung bases that are new to correlate for CHF with early atypical interstitial edema versus infectious or aspiration pneumonitis. BNP obtained and is 1240 and patient does not appear to be in volume overload, concern with atelectasis and will provide incentive spirometer along with gentle IV hydration and follow-up labs tomorrow Encouraged to increase activity as tolerated and recommended physical therapy daily. PT/OT therapy evaluated recommending subacute rehab and patient is agreeable. Case management following and has placed referrals to [facility] Neurology evaluated the patient and MRA and MRI of the brain with no acute process recommending ENT outpatient with possible vestibular rehab. Continue with meclizine Blood pressure is improved today and will continue to monitor closely Patient being monitored with infectious disease following closely off antibiotic therapy as inflammatory markers were negative Recommend follow-up labs in the a.m. to monitor kidney functions and white count Possible discharge in the next 24-48 hours The impression and plan of care has been dictated by Saadia Deleon, Nurse Practitioner as directed. Dr. Sunny MD I have performed a history and examination and MDM of this patient, discussed the same with the dictator, and agree with the dictator's assessment and plan as written ,documented as a scribe. Based on total visit time, I have performed more than 50% of the visit. Objective - Vital Signs Vital signs: Vital Signs Temp 97.4 F L 03/27/23 04:00 Pulse 70 03/27/23 04:00 Resp 18 03/27/23 04:00 BP 151/81 03/27/23 04:00 Pulse Ox 95 03/27/23 04:00 FiO2 Intake & Output 03/26/23 03/27/23 03/27/23 18:59 06:59 18:59 Intake Total 1198 250 0 Output Total 75 Balance 1123 250 0 Intake: Oral 1198 250 0 Output: Urine 75 Other: Voiding Method External Catheter External Catheter - Labs CBC & Chem 7: 03/27/23 06:35 03/27/23 06:35 Labs: Abnormal Lab Results - Last 24 Hours (Table) 03/27/23 03/27/23 Range/Units 06:35 06:35 WBC 17.3 H (3.8-10.6) k/uL RDW 16.7 H (11.5-15.5) % Plt Count 623 H (150-450) k/uL Neutrophils # 14.5 H (1.3-7.7) k/uL Monocytes # 1.2 H (0-1.0) k/uL Sodium 132 L (137-145) mmol/L Chloride 94 L (98-107) mmol/L BUN 29 H (9-20) mg/dL Creatinine 1.82 H (0.66-1.25) mg/dL Glucose 128 H (74-99) mg/dL
[2023-03-27] MEDS: SODIUM CHLORIDE 0.9% 1,000 ML IV SCH (15:40)
--- NOTE | 2023-03-27 21:44 | P.PN ---
Subjective Progress Note Date: 03/27/23 Principal diagnosis: abnormal CT ?mastoiditis Patient is a 82-year-old male with a past medical history relevant for hypertension hyperlipidemia history of prostate cancer reflux COPD presenting to the ER for evaluation of dizziness that has been progressively getting worse, did have CT brain and concern for possible Right middle ear fluid and possible mastoiditis on todays Evaluation that is 03/27/2023, the patient remains to be afebrile, patient is breathing comfortably on room air, the patient denies any pain to the right ear area no nausea no vomiting no abdominal pain and no diarrhea Objective - Vital Signs Vital signs: Vital Signs Temp 98.3 F 03/27/23 12:15 Pulse 76 03/27/23 12:15 Resp 18 03/27/23 12:15 BP 124/76 03/27/23 12:15 Pulse Ox 95 03/27/23 12:15 FiO2 Intake & Output 03/26/23 03/27/23 03/27/23 18:59 06:59 18:59 Intake Total 1198 250 220 Output Total 75 Balance 1123 250 220 Intake: Oral 1198 250 220 Output: Urine 75 Other: Voiding Method External Catheter External Catheter External Catheter - Exam GENERAL DESCRIPTION: Elderly male lying in bed in no distress RESPIRATORY SYSTEM: Unlabored breathing , decreased breath sounds at bases HEART: S1 S2 regular rate and rhythm ,no loud murmurs ABDOMEN: Soft , no tenderness EXTREMITIES: No edema feet - Labs CBC & Chem 7: 03/27/23 06:35 03/27/23 06:35 Labs: Abnormal Lab Results - Last 24 Hours (Table) 03/27/23 03/27/23 Range/Units 06:35 06:35 WBC 17.3 H (3.8-10.6) k/uL RDW 16.7 H (11.5-15.5) % Plt Count 623 H (150-450) k/uL Neutrophils # 14.5 H (1.3-7.7) k/uL Monocytes # 1.2 H (0-1.0) k/uL Sodium 132 L (137-145) mmol/L Chloride 94 L (98-107) mmol/L BUN 29 H (9-20) mg/dL Creatinine 1.82 H (0.66-1.25) mg/dL Glucose 128 H (74-99) mg/dL Assessment and Plan (1) Abnormal CT of brain Current Visit: Yes Status: Acute Code(s): R90.89 - OT ABNORMAL FINDINGS ON DIAGNOSTIC IMAGING OF CNSL SNOMED Code(s): 730543538 Plan: 1patient presented to hospital with generalized weakness and dizziness patient denies having any ataxia patient denies having any pain to the right temporal area no problem with the right ear as well as hearing or drainage patient did not have any fever or elevated white count, and patient did not have any tenderness ON examination to the temporal bone more likely CT findings are i ncidental finding and clinically not behaving as mastoiditis or middle ear infection 2-Pt did have normal inflammatory markers making it unlikely to be mastoiditis 3-Patient did have slight worsening of the white count up to 17,000 today also have elevated. Creatinine with concern for possible prerenal, discussed with the primary team may benefit from gentle hydration we will repeat his inflammat ory markers with a.m. lab Time with Patient: Less than 30
[2023-03-27] MEDS: ATORVASTATIN 40 MG TAB PO SCH (21:50)
[2023-03-28] MEDS: SODIUM CHLORIDE 0.9% 1,000 ML IV SCH ×2 (06:21→20:00)
[2023-03-28] MEDS: PANTOPRAZOLE 40 MG TABLET PO SCH ×2 (06:21→15:58)
[2023-03-28] MEDS: atenoloL 50 MG TAB PO SCH ×2 (08:32→11:52)
[2023-03-28] MEDS: hydrALAZINE HCL 25 MG TAB PO SCH (08:32)
[2023-03-28] MEDS: MECLIZINE 25 MG TAB PO SCH ×2 (08:32→15:58)
[2023-03-28] MEDS: ASPIRIN 81 MG PO SCH (08:32)
[2023-03-28] MEDS: CYANOCOBALAMIN 500 MCG TAB PO SCH (08:32)
[2023-03-28] MEDS: TAMSULOSIN 0.4 MG CAP.ER.24H PO SCH (08:59)
[2023-03-28] MEDS: SENNOSIDES 8.6 MG TAB PO SCH ×2 (08:59→20:00)
[2023-03-28 09:32] LABS: African American GFR (CKD) 21 (>60 ml/min/1.73 sqM); Anion Gap 12 mmol/L; Blood Urea Nitrogen 47 mg/dL (9-20); Calcium 8.9 mg/dL (8.4-10.2); Carbon Dioxide 25 mmol/L (22-30); Chloride 95 mmol/L (98-107); Glucose 125 mg/dL (74-99); Non-African American GFR(CKD) 18 (>60 ml/min/1.73 sqM); Potassium 4.1 mmol/L (3.5-5.1); Sodium 132 mmol/L (137-145)
[2023-03-28 10:00] LABS: Basophils % (A) 0 %; Eosinophils # (A) 0.1 k/uL (0-0.7); Eosinophils % (A) 0 %; HCT 48.6 % (39.0-53.0); HGB 15.8 gm/dL (13.0-17.5); Lymphocytes # (A) 1.4 k/uL (1.0-4.8); Lymphocytes % (A) 8 %; MCH 29.9 pg (25.0-35.0); MCHC 32.6 g/dL (31.0-37.0); MCV 91.8 fL (80.0-100.0); Mean Platelet Volume 8.9; Monocytes # (A) 1.8 k/uL (0-1.0); Monocytes % (A) 10 %; Neutrophils % (A) 81 %; Platelet Count 483 k/uL (150-450); RDW 14.6 % (11.5-15.5); WBC 18.6 k/uL (3.8-10.6)
[2023-03-28 10:57] LABS: C Reactive Protein 4.9 mg/dL (<1.0)
--- NOTE | 2023-03-28 11:16 | P.NPCON ---
History of Present Illness - Reason for Consult acute renal failure - History of Present Illness Reason for consultation: Acute kidney injury History of present illness: Patient is a 82-year-old male seen in renal consultation for acute kidney injury. Patient's baseline creatinine is near 1 and is up at 3.09 today. Patient came to the hospital on 03/23/2023 due to dizziness. Patient states dizziness isn't going on for the last 2-3 weeks. Patient denies any falls but states he has come close to falling. He denies chest pain or shortness of breath. No edema. No gross hematuria or dysuria. He denies use of nonsteroidals. No history of diabetes. Denies history of coronary artery disease. Orthostatic vitals noted. Standing blood pressures not low. He did require straight catheterization this morning at about 900 mL of urine obtained. He was taking hydrochlorothiazide as well as Cozaar outpatient which are both currently held. He was started on Flomax this morning. He is currently receiving IV fluids. Appetite has been poor the last few days. Echocardiogram showed preserved ejection fraction. Mild mitral regurgitation was noted. Neck MRA showed no significant stenosis. Brain MRI showed age-related atrophic and chronic small vessel ischemic changes. Vital signs are stable. General: No acute distress. HEENT: Head exam is unremarkable. LUNGS: No audible rhonchi or wheezes. HEART: Rate and Rhythm are regular. ABDOMEN: Nontender. EXTREMITITES: No edema. Past Medical History Past Medical History: COPD, GERD/Reflux, Hyperlipidemia, Hypertension, Osteoarthritis (OA) Additional Past Medical History / Comment(s): Gout History of Any Multi-Drug Resistant Organisms: None Reported Past Surgical History: Heart Catheterization Past Anesthesia/Blood Transfusion Reactions: No Reported Reaction Past Psychological History: No Psychological Hx Reported Smoking Status: Former smoker Past Alcohol Use History: Occasional Past Drug Use History: None Reported - Past Family History Mother History Unknown: Yes Father History Unknown: Yes Medications and Allergies Home Medications Medication Instructions Recorded Confirmed Type Atenolol 50 mg PO BID@0800,1200 02/20/14 03/23/23 History Pantoprazole Sodium [Protonix] 40 mg PO BID 02/20/14 03/23/23 History Simvastatin [Zocor] 80 mg PO HS 02/20/14 03/23/23 History hydrALAZINE HCL [Apresoline] 25 mg PO BID 02/20/14 03/23/23 History hydroCHLOROthiazide [Hydrodiuril] 25 mg PO DAILY 02/20/14 03/23/23 History Losartan Potassium [Cozaar] 100 mg PO W/LUNCH 09/11/22 03/23/23 History Allergies Allergy/AdvReac Type Severity Reaction Status Date / Time No Known Allergies Allergy Verified 03/23/23 12:40 Physical Exam Vitals: Vital Signs Temp Pulse Resp BP Pulse Ox 03/28/23 08:30 97.9 F 86 17 147/82 94 L 03/28/23 04:00 98.1 F 69 18 144/78 95 03/28/23 02:00 18 03/28/23 00:00 97.6 F 80 18 149/74 95 03/27/23 20:00 98.0 F 68 18 142/78 96 03/27/23 15:40 68 18 154/79 95 03/27/23 12:15 98.3 F 76 18 124/76 95 Intake and Output 03/27/23 03/28/23 03/28/23 22:59 06:59 14:59 Intake Total 110 1000 0 Output Total 250 950 Balance -140 1000 -950 Intake: Intake, IV Titration 1000 Amount Sodium Chloride 0.9% 1, 1000 000 ml @ 75 mls/hr IV . [id number] [facility] Rx#:[id number] Oral 110 0 Output: Urine 250 950 Other: Voiding Method External Catheter External Catheter External Catheter Results - Lab Results Most recent lab results Calcium 8.9 mg/dL (8.4-10.2) 03/28/23 08:24 Magnesium 1.7 mg/dL (1.6-2.3) 03/23/23 10:58 03/28/23 08:24 03/28/23 08:24 Assessment and Plan Plan: Assessment: 1. Acute kidney injury secondary to ATN and urinary retention. Baseline creatinine near 1 and is up to 3.09 today. 2. Urinary retention status post straight catheterization this morning with 900 mL urine obtained. 3. Dizziness and presyncope. Neurology following. No acute changes noted on MRA of the neck and MRI of the brain. Echo showed preserved ejection fraction with mild mitral regurgitation. No significant carotid stenosis noted. Orthostatics negative. 4. Hyponatremia secondary to acute kidney injury. 5. Benign hypertension. Stable. Plan: Maintain IV fluids. Flomax added this morning. Continue to hold diuretics as well as losartan. Check renal ultrasound. Avoid nephrotoxins. Continue to monitor renal function and urine output. Repeat bladder scan and insert Goel catheter if has persistent retention. Thank you for the consultation. I will continue to follow the patient with you during his hospital stay.
--- NOTE | 2023-03-28 11:26 | P.PN ---
Subjective Progress Note Date: 03/27/23 Patient was seen for a follow-up. Patient is laying comfortably in the bed. Patient upset about getting frequent blood draws. Patient stated that he gets dizzy every time that he stands up. He loses balance [id number]. He does not know if he passes out or falls down. Patient states that he has only gotten up for half an hour. Otherwise he just lays in the bed. Patient's renal functions have slightly got worse. Also white cells elevated. Nephrology consulted. Objective - Vital Signs Vital signs: Vital Signs Temp 97.9 F 03/28/23 08:30 Pulse 86 03/28/23 08:30 Resp 17 03/28/23 08:30 BP 147/82 03/28/23 08:30 Pulse Ox 94 L 03/28/23 08:30 FiO2 Intake & Output 03/27/23 03/28/23 03/28/23 18:59 06:59 18:59 Intake Total 330 1000 0 Output Total 250 950 Balance 80 1000 -950 Intake: Intake, IV Titration 1000 Amount Sodium Chloride 0.9% 1, 1000 000 ml @ 75 mls/hr IV . [id number] [facility] Rx#:[id number] Oral 330 0 Output: Urine 250 950 Other: Voiding Method External Catheter External Catheter External Catheter - Exam Patient is alert and oriented 3. No aphasia. Patient is blind over the right eye. Visual medina full on the left. No facial weakness noted. On muscle strength testing, the strength is normal in the arms and legs except deltoids which are weak bilaterally from rotator cuff tear. In the lower limbs hip flexion is 4+5-bilaterally, ankle dorsiflexion is 5 bilaterally. Patient has hammertoes and high arched feet. - Labs CBC & Chem 7: 03/28/23 08:24 03/28/23 08:24 Labs: Abnormal Lab Results - Last 24 Hours (Table) 03/28/23 03/28/23 Range/Units 08:24 08:24 WBC 18.6 H (3.8-10.6) k/uL Plt Count 483 H (150-450) k/uL Neutrophils # 15.0 H (1.3-7.7) k/uL Monocytes # 1.8 H (0-1.0) k/uL Sodium 132 L (137-145) mmol/L Chloride 95 L (98-107) mmol/L BUN 47 H (9-20) mg/dL Creatinine 3.09 H (0.66-1.25) mg/dL Glucose 125 H (74-99) mg/dL C-Reactive Protein 4.9 H (<1.0) mg/dL Assessment and Plan Assessment: * 82-year-old male with 1 month history of dizziness on standing up, like near syncopal symptoms. Patient denies any vertigo, denies any symptoms when sitting, laying or when rolling over in the bed. Orthostatics checked were negative. * Hypertension * CT head showed possibility of otomastoiditis * High arched feet, hammer toes * Hyperlipidemia * Osteoarthritis * Acute worsening of renal functions. Plan: * Carotid Doppler revealed 50-69% stenosis of left carotid bifurcation peak systolic velocity which is borderline. Less than 50% stenosis on the right carotid bifurcation. * 2-D echo revealed moderate increased left-ventricular wall thickness, LV EF 55-60%. Mildly dilated left atrium. Mild MR. * Repeat orthostatics showed supine blood pressure 184/87, pulse rate 68, sitting 175/102 with pulse rate of 80 and standing 167/78 with pulse rate of 85. Orthostatics negative. * MRI brain showed age-related atrophic and chronic small vessel ischemic change. No acute process. I personally reviewed MRI agree with the findings. * MRA of the neck showed no significant flow limiting stenosis. * Patient does have hammertoes and high arched feet, therefore some component of imbalance and dizziness may be related to peripheral neuropathy. Patient may benefit from EMG and nerve conduction of bilateral lower limbs. * Optimize control of blood pressure. * B12 329, folate 14.9, TSH 0.69, hemoglobin A1c 6.1. Vitamin B12 level is borderline, we will start B12 replacement. * Continue Lipitor 40 mg daily. Start aspirin 81 mg daily. Patient was not on any antiplatelet medication at home. He does have multiple vascular risk factors. * CT head revealed possibility of otomastoiditis. ID input appreciated. Antibiotics discontinued. May consider ENT consult outpatient for evaluation of vestibular functions. * Patient has been mostly laying in the bed. Patient was strongly recommended to stay in the recliner at least 4-8 hours a day. This will help with improving postural reflexes. PT OT. * Patient undergoing workup by nephrology. * Patient may benefit from subacute rehab. Neurologically, no other workup indicated. Neurologically clear.
[2023-03-28 13:28] LABS: Appearance,Urine Clear (Clear); Bacteria,Urine Rare /hpf; Bilirubin,Urine Negative (Negative); Blood,Urine Trace (Negative); Color,Urine Yellow; Glucose,Urine (UA) Negative (Negative); Ketones,Urine Negative (Negative); Leukocyte Esterase,Urine Moderate (Negative); Nitrite,Urine Negative (Negative); PH, Urine 5.5 (5.0-8.0); Protein,Urine Negative (Negative); RBC,Urine 50 /hpf (0-5); Specific Gravity,Urine 1.012 (1.001-1.035); Squamous Epithelial Cell,Urine <1 /hpf (0-4); Urobilinogen,Urine <2.0 mg/dL (<2.0); WBC,Urine 24 /hpf (0-5)
--- NOTE | 2023-03-28 13:54 | US ---
EXAMINATION TYPE: US kidneys/renal and bladder DATE OF EXAM: 03/28/2023 COMPARISON: CT 08/30/2022 CLINICAL INDICATION: Male, 82 years old with history of francis; francis EXAM MEASUREMENTS: Right Kidney: 9.7x4.4x4.0 cm Left Kidney: 12.3x6.6x4.3 cm Right Kidney: No hydronephrosis or masses seen Left Kidney: several anechoic areas noted. Largest 3 measured. inferior lateral: 1.7x1.3x1.4cm inferior mid: 2.8x2.0x2.1cm mid/superior lateral: 1.4x1.3x1.4cm Bladder: wnl Bilateral Jets seen: Yes There is no evidence for hydronephrosis at this point in time. No nephrolithiasis is seen. The urin dayne bladder is anechoic. Bilateral ureteral jets are seen. Exam limited due to patient limited mobility and rib shadowing IMPRESSION: 1. Left renal cysts. 2. Renal parenchymal thinning right kidney 3. Correlate for medical renal disease.
--- NOTE | 2023-03-28 15:38 | P.PN ---
Subjective Progress Note Date: 03/28/23 Principal diagnosis: abnormal CT ?mastoiditis Patient is a 82-year-old male with a past medical history relevant for hypertension hyperlipidemia history of prostate cancer reflux COPD presenting to the ER for evaluation of dizziness that has been progressively getting worse, did have CT brain and concern for possible Right middle ear fluid and possible mastoiditis on todays Evaluation that is 03/28/2023, the patient denies any fever or any chills, patient is breathing comfortably on room air, the patient denies any pain to the right ear area no nausea no vomiting no abdominal pain and no diarrhea, no urinary symptoms Objective - Vital Signs Vital signs: Vital Signs Temp 97.9 F 03/28/23 08:30 Pulse 86 03/28/23 08:30 Resp 17 03/28/23 08:30 BP 147/82 03/28/23 08:30 Pulse Ox 94 L 03/28/23 08:30 FiO2 Intake & Output 03/27/23 03/28/23 03/28/23 18:59 06:59 18:59 Intake Total 330 1000 0 Output Total 250 950 Balance 80 1000 -950 Intake: Intake, IV Titration 1000 Amount Sodium Chloride 0.9% 1, 1000 000 ml @ 75 mls/hr IV . [id number] [facility] Rx#:[id number] Oral 330 0 Output: Urine 250 950 Other: Voiding Method External Catheter External Catheter External Catheter - Exam GENERAL DESCRIPTION: Elderly male lying in bed in no distress RESPIRATORY SYSTEM: Unlabored breathing , decreased breath sounds at bases HEART: S1 S2 regular rate and rhythm ,no loud murmurs ABDOMEN: Soft , no tenderness EXTREMITIES: No edema feet - Labs CBC & Chem 7: 03/28/23 08:24 03/28/23 08:24 Labs: Abnormal Lab Results - Last 24 Hours (Table) 03/28/23 03/28/23 Range/Units 08:24 08:24 WBC 18.6 H (3.8-10.6) k/uL Plt Count 483 H (150-450) k/uL Neutrophils # 15.0 H (1.3-7.7) k/uL Monocytes # 1.8 H (0-1.0) k/uL Sodium 132 L (137-145) mmol/L Chloride 95 L (98-107) mmol/L BUN 47 H (9-20) mg/dL Creatinine 3.09 H (0.66-1.25) mg/dL Glucose 125 H (74-99) mg/dL C-Reactive Protein 4.9 H (<1.0) mg/dL Assessment and Plan (1) Abnormal CT of brain Current Visit: Yes Status: Acute Code(s): R90.89 - [facility] ABNORMAL FINDINGS ON DIAGNOSTIC IMAGING OF CNSL SNOMED Code(s): 198096168 Plan: 1patient presented to hospital with generalized weakness and dizziness patient denies having any ataxia patient denies having any pain to the right temporal area no problem with the right ear as well as hearing or drainage patient did not have any fever or elevated white count, and patient did not have any tenderness ON examination to the temporal bone more likely CT findings are incidental finding and clinically not behaving as mastoiditis or middle ear infection 2-Pt did have normal inflammatory markers making it unlikely to be mastoiditis 3-Patient did have worsening leukocytosis also noticed to have worsening of his kidney function question of possible interstitial nephritis versus ATN and may be responsible for this elevated white count currently waiting for the per calcitonin we will check urine for eosinophil, hold on systemic antibiotic therapy at this point Time with Patient: Less than 30
[2023-03-28] MEDS: ATORVASTATIN 40 MG TAB PO SCH (20:00)
--- NOTE | 2023-03-28 20:27 | P.PN ---
Subjective Progress Note Date: 03/28/23 82-year-old male who presents emergency Department complaining of dizziness for a month. Patient states again progressively worse to the point where he feels like is given a passout and time. Patient states she's never passed out. Patient states he feels as though he has to grab onto something and he does and though he does not pass out he doesn't feel as though it improved his dizziness. Patient states he lies down he never occurs per patient denies any chest pain difficulty breathing shortness of breath. Patient denies any palpations. Patient has a headache patient denies numbness or weakness. Patient denies any other symptoms at this time. Patient initially thought was vertigo but says it continues he's thinking it might be something worse. Blood work completed in ED reveals a WBC of 8.7, hemoglobin of 15.3 and platelet count of 553, sodium 136, potassium 4.8, BUN/creatinine of 21/1.14, blood glucose of 105, troponin of 0.012 EKG shows a sinus rhythm at 70 bpm AL interval is 264 QRS is 91 QT interval 418 QTC is 439. Patient's EKG shows no ST segment elevation or depression. CT of the head reveals mild to moderate generalized atrophy with no acute intracranial abnormality, moderate chronic ethmoid sinus disease, fluid in bilateral mastoid air cells and right middle ear correlate for mastoiditis/otomastoiditis 03/26/2023 Patient seen and evaluated in follow-up today with vascular surgery, neurology, infectious disease following. IV antibiotics have been discontinued per ID recommendations monitoring the patient closely off antibiotic therapy. Patient also was evaluated by vascular surgery no plans for intervention at this time recommending outpatient follow-up in the next 6 months. Patient scheduled to undergo MRA and MRI of the brain which is currently pending for today. Patient continues with dizziness and poorly controlled blood pressure. Adjustments being made to medications and will monitor blood pressures closely. Recommend discontinuing losartan and will increase hydralazine. Patient with some generalized weakness will have physical therapy evaluate the patient for possible ECF. Patient is currently afebrile with no reports of chest pain or palpitations noted. No reports of nausea or vomiting and patient tolerating diet. Patient does continue to report dizziness with standing. Blood pressure is elevated this morning 03/27/2023 Patient is seen and evaluated in follow-up today continuing to report dizziness being followed by physical therapy along with infectious disease and neurology. Patient may likely need vestibular rehab in the outpatient setting and ENT consultation. Patient did have a spike in white blood count above 17 today although is afebrile and denies chest pain or shortness of breath. Will obtain urinalysis as well as a chest x-ray. BNP ordered and pending as well. Patient is being monitored off antibiotics and not getting up and moving around much may be a component of atelectasis. Encourage oral intake and recommend physical therapy daily. Case management is following as patient is agreeable to rehab and may go to [facility]. Will follow up on labs as kidney functions are elevated and repeat labs in a.m. 03/28/2023 Patient is seen and evaluated in follow-up today and per nursing staff required straight catheterization last night as patient was retaining over 900 mL. Patient reports has been urinating with no difficulties or pain or burning with urination and was started on IV hydration yesterday for worsening kidney functions and appears to be somewhat dehydrated. Nursing staff also reports patient has not had a bowel movement in some time and will add Senokot. Nephrology consulted and appreciate input and recommendations as kidney function showing a creatinine over 3 today. Renal ultrasound ordered and pending. Patient is afebrile and white count did elevate recommend continue with gentle IV hydration as well as incentive spirometer and encouraged increase activity as tolerated. Patient also encouraged to get up and sit up out of the bed more often. Review of systems: Constitutional: No reports of fatigue, fever, or chills Cardiovascular: No reports of chest pain or palpitations Respiratory: No reports of shortness of breath or cough GI: No reports of nausea, vomiting, or diarrhea : No reports of dysuria , new retention last night requiring straight catheterization Neurovascular: reports of generalized weakness and continued dizziness with standing and position changes All medications have been reviewed Physical exam: GENERAL: The patient is alert and oriented x3, not in any acute distress. Well developed, well nourished. HEENT: Pupils are round and equally reacting to light. EOMI. No scleral icterus. No conjunctival pallor. Normocephalic, atraumatic. No pharyngeal erythema. No thyromegaly. CARDIOVASCULAR: S1 and S2 present. No murmurs, rubs, or gallops. PULMONARY: Chest is clear to auscultation, no wheezing or crackles. ABDOMEN: Soft, nontender, nondistended, normoactive bowel sounds. No palpable organomegaly. MUSCULOSKELETAL: No joint swelling or deformity. EXTREMITIES: No cyanosis, clubbing, or pedal edema. NEUROLOGICAL: Gross neurological examination did not reveal any focal deficits. Diffusely weak SKIN: No rashes. Assessment: -Near syncope -Dizziness; etiology unclear; possible vertigo -Acute Mastoiditis although suspicion is low and being monitored per ID recommendations off antibiotic therapy -Atelectasis -Leukocytosis, possibly secondary to atelectasis -Urinary retention, requiring straight catheterization -Mild renal injury/dehydration -Gait dysfunction -Hypertension, uncontrolled -Hyperlipidemia -Gastroesophageal reflux disease -GI prophylaxis -DVT prophylaxis -No code Plan: Mental continue with gentle IV hydration and will follow-up on repeat labs. Per nursing staff patient did require straight catheterization for retention and was noted to have over 900 mL in the bladder. Renal ultrasound ordered and pending along with worsening kidney functions and nephrology consulted. Will add Flomax and instructed to monitor for any further retention. Recommend straight catheterization and if requiring another would insert indwelling Goel catheter Encouraged to increase activity as tolerated and recommended physical therapy daily. PT/OT therapy evaluated recommending subacute rehab and patient is agr eeable. Case management following and has placed referrals to [facility] Neurology evaluated the patient and MRA and MRI of the brain with no acute process recommending ENT outpatient with possible vestibular rehab. Continue with meclizine Blood pressure is improved today and will continue to monitor closely, hydralazine discontinued for now Patient being monitored with infectious disease following closely off antibiotic therapy as inflammatory markers were negative. Repeat inflammatory markers ordered and white count is slightly elevated again today will follow-up with repeat labs in a.m. The impression and plan of care has been dictated by Saadia Deleon, Nurse Practitioner as directed. Dr. Sunny MD I have performed a history and examination and MDM of this patient, discussed the same with the dictator, and agree with the dictator's assessment and plan as written ,documented as a scribe. Based on total visit time, I have performed more than 50% of the visit. Objective - Vital Signs Vital signs: Vital Signs Temp 98.1 F 03/28/23 04:00 Pulse 69 03/28/23 04:00 Resp 18 03/28/23 04:00 BP 144/78 03/28/23 04:00 Pulse Ox 95 03/28/23 04:00 FiO2 Intake & Output 03/27/23 03/28/23 03/28/23 18:59 06:59 18:59 Intake Total 330 1000 0 Output Total 250 950 Balance 80 1000 -950 Intake: Intake, IV Titration 1000 Amount Sodium Chloride 0.9% 1, 1000 000 ml @ 75 mls/hr IV . [id number] [facility] Rx#:[id number] Oral 330 0 Output: Urine 250 950 Other: Voiding Method External Catheter External Catheter - Labs CBC & Chem 7: 03/28/23 08:24 03/28/23 08:24
[2023-03-29] MEDS: MECLIZINE 25 MG TAB PO SCH ×4 (00:01→20:14)
[2023-03-29] MEDS: PANTOPRAZOLE 40 MG TABLET PO SCH ×2 (06:36→16:34)
[2023-03-29] MEDS: SODIUM CHLORIDE 0.9% 1,000 ML IV SCH ×2 (06:36→20:14)
[2023-03-29 07:28] LABS: Basophils # (A) 0.1 k/uL (0-0.2); Basophils % (A) 0 %; Eosinophils # (A) 0.1 k/uL (0-0.7); Eosinophils % (A) 1 %; HCT 46.1 % (39.0-53.0); HGB 15.3 gm/dL (13.0-17.5); Lymphocytes # (A) 1.4 k/uL (1.0-4.8); Lymphocytes % (A) 9 %; MCH 31.2 pg (25.0-35.0); MCHC 33.1 g/dL (31.0-37.0); MCV 94.2 fL (80.0-100.0); Mean Platelet Volume 8.2; Monocytes # (A) 1.4 k/uL (0-1.0); Monocytes % (A) 10 %; Neutrophils # (A) 11.4 k/uL (1.3-7.7); Neutrophils % (A) 78 %; Platelet Count 474 k/uL (150-450); RBC 4.89 m/uL (4.30-5.90); RDW 14.8 % (11.5-15.5); WBC 14.5 k/uL (3.8-10.6)
[2023-03-29 07:53] LABS: African American GFR (CKD) 37 (>60 ml/min/1.73 sqM); Anion Gap 9 mmol/L; Blood Urea Nitrogen 52 mg/dL (9-20); Calcium 8.3 mg/dL (8.4-10.2); Carbon Dioxide 24 mmol/L (22-30); Chloride 100 mmol/L (98-107); Glucose 173 mg/dL (74-99); Magnesium 1.5 mg/dL (1.6-2.3); Non-African American GFR(CKD) 32 (>60 ml/min/1.73 sqM); Potassium 3.6 mmol/L (3.5-5.1); Sodium 133 mmol/L (137-145)
[2023-03-29] MEDS: TAMSULOSIN 0.4 MG CAP.ER.24H PO SCH (07:58)
[2023-03-29] MEDS: SENNOSIDES 8.6 MG TAB PO SCH ×2 (07:59→20:14)
[2023-03-29] MEDS: CYANOCOBALAMIN 500 MCG TAB PO SCH (07:59)
[2023-03-29] MEDS: ASPIRIN 81 MG PO SCH (07:59)
[2023-03-29] MEDS ORDERED: Magnesium Replacement Protocol 1 EACH MISC MISCELLANE PRN (09:33)
[2023-03-29] MEDS: atenoloL 50 MG TAB PO SCH ×2 (10:23→14:30)
[2023-03-29] MEDS: MAGNESIUM SULFATE-D5W PMX 1 GM in DEXTROSE/WATER 1 100ML.BAG IVPB SCH ×2 (10:26→12:27)
--- NOTE | 2023-03-29 11:11 | P.PN ---
Subjective Patient is seen for follow-up for acute kidney injury mostly associated with urine retention and hypovolemia. Patient has an indwelling Goel catheter with 24 hour urine output at 2.5 L. Maintained on IV fluids. Serum creatinine down to 1.8 from 3.0 yesterday. No significant complaints today. Objective - Vital Signs Vital signs: Vital Signs Temp 98.0 F 03/29/23 07:55 Pulse 80 03/29/23 10:43 Resp 18 03/29/23 10:43 BP 85/54 03/29/23 07:55 Pulse Ox 94 L 03/29/23 07:55 FiO2 Intake & Output 03/28/23 03/29/23 03/29/23 18:59 06:59 18:59 Intake Total 0 118 Output Total 2009 500 Balance -2009 118 Intake: Oral 0 118 Output: Urine 2009 Uretheral (Goel) 700 500 Other: Voiding Method External Catheter Indwelling Catheter Indwelling Catheter - Exam Patient is awake, comfortable, no acute distress Examination of the heart S1 and S2 Examination of the lungs bilateral breath sounds are heard Abdomen is soft nontender Examination of the lower extremity shows no significant edema 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 - Labs CBC & Chem 7: 03/29/23 06:46 03/29/23 06:46 Labs: Abnormal Lab Results - Last 24 Hours (Table) 03/28/23 03/28/23 03/29/23 Range/Units 08:24 12:57 06:46 WBC 14.5 H (3.8-10.6) k/uL Plt Count 474 H (150-450) k/uL Neutrophils # 11.4 H (1.3-7.7) k/uL Monocytes # 1.4 H (0-1.0) k/uL Sodium (137-145) mmol/L BUN (9-20) mg/dL Creatinine (0.66-1.25) mg/dL Glucose (74-99) mg/dL Calcium (8.4-10.2) mg/dL Magnesium (1.6-2.3) mg/dL Procalcitonin 0.13 H (0.02-0.09) ng/mL Urine Blood Trace H (Negative) Ur Leukocyte Esterase Moderate H (Negative) Urine RBC 50 H (0-5) /hpf Urine WBC 24 H (0-5) /hpf Urine Bacteria Rare H (None) /hpf 03/29/23 Range/Units 06:46 WBC (3.8-10.6) k/uL Plt Count (150-450) k/uL Neutrophils # (1.3-7.7) k/uL Monocytes # (0-1.0) k/uL Sodium 133 L (137-145) mmol/L BUN 52 H (9-20) mg/dL Creatinine 1.89 H (0.66-1.25) mg/dL Glucose 173 H (74-99) mg/dL Calcium 8.3 L (8.4-10.2) mg/dL Magnesium 1.5 L (1.6-2.3) mg/dL Procalcitonin (0.02-0.09) ng/mL Urine Blood (Negative) Ur Leukocyte Esterase (Negative) Urine RBC (0-5) /hpf Urine WBC (0-5) /hpf Urine Bacteria (None) /hpf Assessment and Plan Assessment: 1. Acute kidney injury secondary to ATN and urinary retention. Baseline creatinine near 1, had peaked at 3.0 and down to 1.8 today. 2. Urinary retention status post straight catheterization this morning with 900 mL urine obtained. Currently with indwelling Goel catheter. 3. Dizziness and presyncope. Neurology following. No acute changes noted on MRA of the neck and MRI of the brain. Echo showed preserved ejection fraction with mild mitral regurgitation. No significant carotid stenosis noted. Orthostatics negative. 4. Hyponatremia secondary to acute kidney injury. 5. Benign hypertension. Stable. Plan: Continue with IV fluids Continue with Goel catheter Blood pressure remains low therefore we will continue to hold angiotensin receptor blockers.
--- NOTE | 2023-03-29 15:11 | P.PN ---
Subjective Progress Note Date: 03/29/23 Principal diagnosis: abnormal CT ?mastoiditis Patient is a 82-year-old male with a past medical history relevant for hypertension hyperlipidemia history of prostate cancer reflux COPD presenting to the ER for evaluation of dizziness that has been progressively getting worse, did have CT brain and concern for possible Right middle ear fluid and possible mastoiditis on todays Evaluation that is 03/29/2023, the patient remains to be afebrile, patient is breathing comfortably on room air, the patient denies any pain to the right ear area, the patient denies having any nausea no vomiting no abdominal pain and no diarrhea, no urinary symptoms Objective - Vital Signs Vital signs: Vital Signs Temp 98.0 F 03/29/23 07:55 Pulse 76 03/29/23 12:25 Resp 18 03/29/23 12:25 BP 112/64 03/29/23 12:25 Pulse Ox 94 L 03/29/23 12:25 FiO2 Intake & Output 03/28/23 03/29/23 03/29/23 18:59 06:59 18:59 Intake Total 0 118 Output Total 2009 500 Balance -2009 118 Intake: Oral 0 118 Output: Urine 2009 500 Uretheral (Goel) 700 500 Other: Voiding Method External Catheter Indwelling Catheter Indwelling Catheter - Exam GENERAL DESCRIPTION: Elderly male lying in bed in no distress RESPIRATORY SYSTEM: Unlabored breathing , decreased breath sounds at bases HEART: S1 S2 regular rate and rhythm ,no loud murmurs ABDOMEN: Soft , no tenderness EXTREMITIES: No edema feet - Labs CBC & Chem 7: 03/29/23 06:46 03/29/23 06:46 Labs: Abnormal Lab Results - Last 24 Hours (Table) 03/28/23 03/28/23 03/29/23 Range/Units 08:24 12:57 06:46 WBC 14.5 H (3.8-10.6) k/uL Plt Count 474 H (150-450) k/uL Neutrophils # 11.4 H (1.3-7.7) k/uL Monocytes # 1.4 H (0-1.0) k/uL Sodium (137-145) mmol/L BUN (9-20) mg/dL Creatinine (0.66-1.25) mg/dL Glucose (74-99) mg/dL Calcium (8.4-10.2) mg/dL Magnesium (1.6-2.3) mg/dL Procalcitonin 0.13 H (0.02-0.09) ng/mL Urine Blood Trace H (Negative) Ur Leukocyte Esterase Moderate H (Negative) Urine RBC 50 H (0-5) /hpf Urine WBC 24 H (0-5) /hpf Urine Bacteria Rare H (None) /hpf 03/29/23 Range/Units 06:46 WBC (3.8-10.6) k/uL Plt Count (150-450) k/uL Neutrophils # (1.3-7.7) k/uL Monocytes # (0-1.0) k/uL Sodium 133 L (137-145) mmol/L BUN 52 H (9-20) mg/dL Creatinine 1.89 H (0.66-1.25) mg/dL Glucose 173 H (74-99) mg/dL Calcium 8.3 L (8.4-10.2) mg/dL Magnesium 1.5 L (1.6-2.3) mg/dL Procalcitonin (0.02-0.09) ng/mL Urine Blood (Negative) Ur Leukocyte Esterase (Negative) Urine RBC (0-5) /hpf Urine WBC (0-5) /hpf Urine Bacteria (None) /hpf Assessment and Plan (1) Abnormal CT of brain Current Visit: Yes Status: Acute Code(s): R90.89 - OTH ABNORMAL FINDINGS ON DIAGNOSTIC IMAGING OF CNSL SNOMED Code(s): 365985432 (2) Leukocytosis Current Visit: Yes Status: Acute Code(s): D72.829 - ELEVATED WHITE BLOOD CELL COUNT, UNSPECIFIED SNOMED Code(s): 543887879 Plan: 1patient presented to hospital with generalized weakness and dizziness patient denies having any ataxia patient denies having any pain to the right temporal area no problem with the right ear as well as hearing or drainage patient did not have any fever or elevated white count, and patient did not have any tenderness ON examination to the temporal bone more likely CT findings are incidental finding and clinically not behaving as mastoiditis or middle ear infection 2-Pt did have normal inflammatory markers making it unlikely to be mastoiditis 3-Patient did have worsening leukocytosis also noticed to have worsening of his kidney function question of possible interstitial nephritis versus ATN, nephrology is following the patient closely patient did have improvement in the kidney function as well as white count and the patient will monitor closely off antibiotic therapy Time with Patient: Less than 30
[2023-03-29] MEDS ORDERED: bisacodyL 10 MG SUPP RECTAL PRN (19:13)
--- NOTE | 2023-03-29 20:00 | P.PN ---
Subjective Progress Note Date: 03/29/23 82-year-old male who presents emergency Department complaining of dizziness for a month. Patient states again progressively worse to the point where he feels like is given a passout and time. Patient states she's never passed out. Patient states he feels as though he has to grab onto something and he does and though he does not pass out he doesn't feel as though it improved his dizziness. Patient states he lies down he never occurs per patient denies any chest pain difficulty breathing shortness of breath. Patient denies any palpations. Patient has a headache patient denies numbness or weakness. Patient denies any other symptoms at this time. Patient initially thought was vertigo but says it continues he's thinking it might be something worse. Blood work completed in ED reveals a WBC of 8.7, hemoglobin of 15.3 and platelet count of 553, sodium 136, potassium 4.8, BUN/creatinine of 21/1.14, blood glucose of 105, troponin of 0.012 EKG shows a sinus rhythm at 70 bpm [place] interval is 264 QRS is 91 QT interval 418 QTC is 439. Patient's EKG shows no ST segment elevation or depression. CT of the head reveals mild to moderate generalized atrophy with no acute intracranial abnormality, moderate chronic ethmoid sinus disease, fluid in bilateral mastoid air cells and right middle ear correlate for mastoiditis/otomastoiditis 03/26/2023 Patient seen and evaluated in follow-up today with vascular surgery, neurology, infectious disease following. IV antibiotics have been discontinued per ID recommendations monitoring the patient closely off antibiotic therapy. Patient also was evaluated by vascular surgery no plans for intervention at this time recommending outpatient follow-up in the next 6 months. Patient scheduled to undergo MRA and MRI of the brain which is currently pending for today. Patient continues with dizziness and poorly controlled blood pressure. Adjustments being made to medications and will monitor blood pressures closely. Recommend discontinuing losartan and will increase hydralazine. Patient with some generalized weakness will have physical therapy evaluate the patient for possible ECF. Patient is currently afebrile with no reports of chest pain or palpitations noted. No reports of nausea or vomiting and patient tolerating diet. Patient does continue to report dizziness with standing. Blood pressure is elevated this morning 03/27/2023 Patient is seen and evaluated in follow-up today continuing to report dizziness being followed by physical therapy along with infectious disease and neurology. Patient may likely need vestibular rehab in the outpatient setting and ENT consultation. Patient did have a spike in white blood count above 17 today although is afebrile and denies chest pain or shortness of breath. Will obtain urinalysis as well as a chest x-ray. BNP ordered and pending as well. Patient is being monitored off antibiotics and not getting up and moving around much may be a component of atelectasis. Encourage oral intake and recommend physical therapy daily. Case management is following as patient is agreeable to rehab and may go to [facility]. Will follow up on labs as kidney functions are elevated and repeat labs in a.m. 03/28/2023 Patient is seen and evaluated in follow-up today and per nursing staff required straight catheterization last night as patient was retaining over 900 mL. Patient reports has been urinating with no difficulties or pain or burning with urination and was started on IV hydration yesterday for worsening kidney functions and appears to be somewhat dehydrated. Nursing staff also reports patient has not had a bowel movement in some time and will add Senokot. Nephrology consulted and appreciate input and recommendations as kidney function showing a creatinine over 3 today. Renal ultrasound ordered and pending. Patient is afebrile and white count did elevate recommend continue with gentle IV hydration as well as incentive spirometer and encouraged increase activity as tolerated. Patient also encouraged to get up and sit up out of the bed more often. 03/29/2023 Patient is seen and evaluated in follow-up today currently no acute overnight issues noted other than continuing to retain requiring indwelling Goel catheter. Kidney functions trending down and significantly improved at 1.8 today from 3.0 yesterday. Nephrology is following and blood pressures on the lo wer side will hold blood pressure medications at this time. Patient continues with significant weakness and does not report increased dizziness or lightheadedness. Patient is tolerating diet with no reports of nausea or vomiting noted. Infectious disease also following as patient is being closely monitored off IV antibiotics. White count is trending down and encourage the patient to continue using incentive spirometer. Patient is agreeable to rehab with case management following with possible discharge in the next 24 hours. Would recommend continuing indwelling Goel catheter with trial void in the outpatient setting. Continue Flomax. Review of systems: Constitutional: No reports of fatigue, fever, or chills Cardiovascular: No reports of chest pain or palpitations Respiratory: No reports of shortness of breath or cough GI: No reports of nausea, vomiting, or diarrhea : No reports of dysuria , new retention last night requiring indwelling Goel catheter Neurovascular: reports of generalized weakness All medications have been reviewed Physical exam: GENERAL: The patient is alert and oriented x3, not in any acute distress. Well developed, well nourished. HEENT: Pupils are round and equally reacting to light. EOMI. No scleral icterus. No conjunctival pallor. Normocephalic, atraumatic. No pharyngeal erythema. No thyromegaly. CARDIOVASCULAR: S1 and S2 present. No murmurs, rubs, or gallops. PULMONARY: Chest is clear to auscultation, no wheezing or crackles. ABDOMEN: Soft, nontender, nondistended, normoactive bowel sounds. No palpable organomegaly. MUSCULOSKELETAL: No joint swelling or deformity. EXTREMITIES: No cyanosis, clubbing, or pedal edema. NEUROLOGICAL: Gross neurological examination did not reveal any focal deficits. Diffusely weak SKIN: No rashes. Assessment: -Near syncope -Dizziness; etiology unclear; possible vertigo -Acute Mastoiditis noted on MRI although suspicion is low and being monitored per ID recommendations off antibiotic therapy -Atelectasis -Leukocytosis, possibly secondary to atelectasis, trending down -Urinary retention, requiring indwelling Goel catheter -Mild renal injury with acute tubular necrosis as well as secondary to dehydration, improving -Gait dysfunction -Hypertension, uncontrolled although improving -Hyperlipidemia history -Gastroesophageal reflux disease -GI prophylaxis -DVT prophylaxis -No code Plan: Recommend to continue with gentle IV hydration with nephrology following and blood pressure medications are on hold as patient is mildly on the lower side. Patient had some urinary retention requiring indwelling Goel catheter and kidney functions are improving we'll continue gentle IV hydration and continue Goel catheter with follow-up labs Encouraged increase activity as tolerated recommend PT/OT therapy daily Renal ultrasound done showing no hydronephrosis bilaterally Infectious disease following being closely monitored off antibiotics and patient's white count is trending down. Patient remains afebrile. There was a concern for acute mastoiditis although not behaving as such Neurology evaluated the patient and MRA and MRI of the brain with no acute process recommending ENT outpatient with possible vestibular rehab. Continue with meclizine Recommend follow-up labs in the a.m. Patient is agreeable and will be going to [facility] for continued strength and mobility Possible discharge in 24 hours The impression and plan of care has been dictated by Saadia eDleon, Nurse Practitioner as directed. Dr. Sunny MD I have performed a history and examination and MDM of this patient, discussed the same with the dictator, and agree with the dictator's assessment and plan as written ,documented as a scribe. Based on total visit time, I have performed more than 50% of the visit. Objective - Vital Signs Vital signs: Vital Signs Temp 98.0 F 03/29/23 07:55 Pulse 80 03/29/23 07:55 Resp 18 03/29/23 07:55 BP 85/54 03/29/23 07:55 Pulse Ox 94 L 03/29/23 07:55 FiO2 Intake & Output 03/28/23 03/29/23 03/29/23 18:59 06:59 18:59 Intake Total 0 118 Output Total 2009 500 Balance -2009 -500 118 Intake: Oral 0 118 Output: Urine 2009 500 Uretheral (Goel) 700 500 Other: Voiding Method External Catheter Indwelling Catheter - Labs CBC & Chem 7: 03/29/23 06:46 03/29/23 06:46 Labs: Abnormal Lab Results - Last 24 Hours (Table) 03/28/23 03/28/23 03/28/23 Range/Units 08:24 08:24 12:57 WBC (3.8-10.6) k/uL Plt Count (150-450) k/uL Neutrophils # (1.3-7.7) k/uL Monocytes # (0-1.0) k/uL Sodium (137-145) mmol/L BUN (9-20) mg/dL Creatinine (0.66-1.25) mg/dL Glucose (74-99) mg/dL Calcium (8.4-10.2) mg/dL Magnesium (1.6-2.3) mg/dL C-Reactive Protein 4.9 H (<1.0) mg/dL Procalcitonin 0.13 H (0.02-0.09) ng/mL Urine Blood Trace H (Negative) Ur Leukocyte Esterase Moderate H (Negative) Urine RBC 50 H (0-5) /hpf Urine WBC 24 H (0-5) /hpf Urine Bacteria Rare H (None) /hpf 03/29/23 03/29/23 Range/Units 06:46 06:46 WBC 14.5 H (3.8-10.6) k/uL Plt Count 474 H (150-450) k/uL Neutrophils # 11.4 H (1.3-7.7) k/uL Monocytes # 1.4 H (0-1.0) k/uL Sodium 133 L (137-145) mmol/L BUN 52 H (9-20) mg/dL Creatinine 1.89 H (0.66-1.25) mg/dL Glucose 173 H (74-99) mg/dL Calcium 8.3 L (8.4-10.2) mg/dL Magnesium 1.5 L (1.6-2.3) mg/dL C-Reactive Protein (<1.0) mg/dL Procalcitonin (0.02-0.09) ng/mL Urine Blood (Negative) Ur Leukocyte Esterase (Negative) Urine RBC (0-5) /hpf Urine WBC (0-5) /hpf Urine Bacteria (None) /hpf
[2023-03-29] MEDS: ATORVASTATIN 40 MG TAB PO SCH (20:14)
[2023-03-30] MEDS: PANTOPRAZOLE 40 MG TABLET PO SCH (06:04)
[2023-03-30 07:43] LABS: Basophils # (A) 0.1 k/uL (0-0.2); Basophils % (A) 0 %; Eosinophils # (A) 0.1 k/uL (0-0.7); Eosinophils % (A) 1 %; HCT 44.7 % (39.0-53.0); HGB 14.3 gm/dL (13.0-17.5); Lymphocytes # (A) 1.2 k/uL (1.0-4.8); Lymphocytes % (A) 9 %; MCH 29.9 pg (25.0-35.0); MCHC 31.9 g/dL (31.0-37.0); MCV 93.5 fL (80.0-100.0); Mean Platelet Volume 7.8; Monocytes # (A) 1.3 k/uL (0-1.0); Monocytes % (A) 10 %; Neutrophils # (A) 10.8 k/uL (1.3-7.7); Neutrophils % (A) 80 %; Platelet Count 448 k/uL (150-450); RBC 4.78 m/uL (4.30-5.90); RDW 14.2 % (11.5-15.5); WBC 13.6 k/uL (3.8-10.6)
[2023-03-30 07:57] LABS: African American GFR (CKD) 66 (>60 ml/min/1.73 sqM); Anion Gap 6 mmol/L; Blood Urea Nitrogen 36 mg/dL (9-20); Calcium 7.9 mg/dL (8.4-10.2); Carbon Dioxide 24 mmol/L (22-30); Chloride 105 mmol/L (98-107); Glucose 162 mg/dL (74-99); Magnesium 1.8 mg/dL (1.6-2.3); Non-African American GFR(CKD) 57 (>60 ml/min/1.73 sqM); Potassium 3.1 mmol/L (3.5-5.1); Sodium 135 mmol/L (137-145)
[2023-03-30] MEDS: ASPIRIN 81 MG PO SCH (09:05)
[2023-03-30] MEDS: TAMSULOSIN 0.4 MG CAP.ER.24H PO SCH (09:06)
[2023-03-30] MEDS: atenoloL 50 MG TAB PO SCH ×2 (09:06→12:31)
[2023-03-30] MEDS: MECLIZINE 25 MG TAB PO SCH ×2 (09:06→16:08)
[2023-03-30] MEDS: SODIUM CHLORIDE 0.9% 1,000 ML IV SCH (09:06)
[2023-03-30] MEDS: SENNOSIDES 8.6 MG TAB PO SCH (09:06)
[2023-03-30] MEDS: CYANOCOBALAMIN 500 MCG TAB PO SCH (09:06)
[2023-03-30] MEDS ORDERED: Potassium Replacement Protocol 1 EACH MISC MISCELLANE PRN (09:34)
[2023-03-30] MEDS: POTASSIUM CHLORIDE ER 20 MEQ TAB.ER PO SCH ×3 (10:03→12:31)
--- NOTE | 2023-03-30 10:27 | P.PN ---
Subjective Patient is seen for follow-up for acute kidney injury mostly associated with urine retention and hypovolemia. Patient has an indwelling Goel catheter with 24 hour urine output at 2.0 L. Maintained on IV fluids. Serum creatinine down to 1.18 from 3.0 at peak. No significant complaints today. Objective - Vital Signs Vital signs: Vital Signs Temp 98.0 F 03/29/23 07:55 Pulse 72 03/30/23 04:00 Resp 20 03/30/23 04:00 BP 147/84 03/30/23 04:00 Pulse Ox 94 L 03/30/23 09:22 FiO2 21 03/30/23 09:22 Intake & Output 03/29/23 03/30/23 03/30/23 18:59 06:59 18:59 Intake Total 236 Output Total 900 1100 Balance -664 -1100 Intake: Oral 236 Output: Urine 900 1100 Uretheral (Goel) 600 Other: Voiding Method Indwelling Catheter Indwelling Catheter - Exam Patient is awake, comfortable, no acute distress Examination of the heart S1 and S2 Examination of the lungs bilateral breath sounds are heard Abdomen is soft nontender Examination of the lower extremity shows no significant edema 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 Acute kidney injury secondary to ATN and urinary retention. Baseline crea tinine near 1, had peaked at 3.0 and down to 1.18 today. 2. Urinary retention status post straight catheterization this morning with 900 mL urine obtained. Currently with indwelling Goel catheter. 3. Dizziness and presyncope. Neurology following. No acute changes noted on MRA of the neck and MRI of the brain. Echo showed preserved ejection fraction with mild mitral regurgitation. No significant carotid stenosis noted. Orthostatics negative. 4. Hyponatremia secondary to acute kidney injury. Improved 5. Benign hypertension. Stable. Plan: Continue with IV fluids. Decrease rate Encourage increased oral intake Continue with Goel catheter Okay to resume losartan
[2023-03-30] MEDS ORDERED: LOSARTAN 25 MG TAB PO SCH (10:30)
[2023-03-30 10:56] VITALS: RESP 18
--- NOTE | 2023-03-30 14:54 | P.PN ---
Subjective Progress Note Date: 03/30/23 Principal diagnosis: abnormal CT ?mastoiditis Patient is a 82-year-old male with a past medical history relevant for hypertension hyperlipidemia history of prostate cancer reflux COPD presenting to the ER for evaluation of dizziness that has been progressively getting worse, did have CT brain and concern for possible Right middle ear fluid and possible mastoiditis on todays Evaluation that is 03/30/2023, the patient continues to be afebrile, patient is breathing comfortably on room air, the patient denies any chest pain shortness of breath or cough no nausea no vomiting no abdominal pain no diarrhea the patient is complaining of constipation and no bowel movement since admission Objective - Vital Signs Vital signs: Vital Signs Temp 98.1 F 03/30/23 09:00 Pulse 76 03/30/23 09:00 Resp 18 03/30/23 09:00 BP 162/88 03/30/23 09:00 Pulse Ox 94 L 03/30/23 09:22 FiO2 21 03/30/23 09:22 Intake & Output 03/29/23 03/30/23 03/30/23 18:59 06:59 18:59 Intake Total 236 Output Total 900 1100 Balance -664 -1100 Intake: Oral 236 Output: Urine 900 1100 Uretheral (Goel) 600 Other: Voiding Method Indwelling Catheter Indwelling Catheter Indwelling Catheter - Exam GENERAL DESCRIPTION: Elderly male lying in bed in no distress RESPIRATORY SYSTEM: Unlabored breathing , decreased breath sounds at bases HEART: S1 S2 regular rate and rhythm ,no loud murmurs ABDOMEN: Soft , no tenderness EXTREMITIES: No edema feet - Labs CBC & Chem 7: 03/30/23 07:27 03/30/23 07:27 Labs: Abnormal Lab Results - Last 24 Hours (Table) 03/30/23 03/30/23 Range/Units 07:27 07:27 WBC 13.6 H (3.8-10.6) k/uL Neutrophils # 10.8 H (1.3-7.7) k/uL Monocytes # 1.3 H (0-1.0) k/uL Sodium 135 L (137-145) mmol/L Potassium 3.1 L (3.5-5.1) mmol/L BUN 36 H (9-20) mg/dL Glucose 162 H (74-99) mg/dL Calcium 7.9 L (8.4-10.2) mg/dL Assessment and Plan (1) Abnormal CT of brain Current Visit: Yes Status: Acute Code(s): R90.89 - OTH ABNORMAL FINDINGS ON DIAGNOSTIC IMAGING OF CNSL SNOMED Code(s): 313421819 (2) Leukocytosis Current Visit: Yes Status: Acute Code(s): D72.829 - ELEVATED WHITE BLOOD CELL COUNT, UNSPECIFIED SNOMED Code(s): 712213413 Plan: 1patient presented to hospital with generalized weakness and dizziness patient denies having any ataxia patient denies having any pain to the right temporal area no problem with the right ear as well as hearing or drainage patient did not have any fever or elevated white count, and patient did not have any tenderness ON examination to the temporal bone more likely CT findings are incidental finding and clinically not behaving as mastoiditis or middle ear infection 2-Pt did have normal inflammatory markers making it unlikely to be mastoiditis 3-Patient did have worsening leukocytosis also noticed to have worsening of his kidney function question of possible interstitial nephritis versus ATN, nephrology is following the patient closely 4- patient did have improvement in the kidney function as well as white count which is down to 13.6 today, with a white count improvement without antibiotic therapy recommending on antibiotics on discharge discussed with MINE DEVELOPMENT ENGINEER for admitting team Time with Patient: Less than 30
--- NOTE | 2023-03-30 15:05 | P.DS ---
Providers Date of admission: 03/23/23 13:23 Expected date of discharge: 03/30/23 Attending physician: Elio Garvey Consults: 03/23/23 13:22 Consult Physician Urgent Consulting Provider: Marcela Ospina Consult Reason/Comments: Near syncope, vertigo Do you want consulting provider notified?: Yes 03/23/23 18:50 Consult Physician Routine Consulting Provider: Harris Vicente Consult Reason/Comments: Acute mastoiditis Do you want consulting provider notified?: Yes, Notify in am 03/28/23 10:54 Consult Physician Urgent Consulting Provider: Mani Tomlin Consult Reason/Comments: francis, retention Do you want consulting provider notified?: Already Contacted Primary care physician: Olive Cardoza [place] [facility] Course: Final diagnosis -Near syncope -Dizziness; etiology unclear; possible vertigo, needs outpatient follow-up with ENT and possible vestibular rehab -Acute Mastoiditis noted on MRI although suspicion is low and being monitored per ID recommendations off antibiotic therapy -Atelectasis -Leukocytosis, possibly secondary to atelectasis, trending down -Urinary retention, requiring indwelling Goel catheter -Mild renal injury with acute tubular necrosis as well as secondary to dehydration, improving -Gait dysfunction -Hypertension, uncontrolled although improving -Hyperlipidemia history -Gastroesophageal reflux disease -GI prophylaxis -DVT prophylaxis -No code Discharge disposition Patient is being discharged in a stable condition with guarded prognosis to [facility]. Patient will follow-up with Dr. Cardoza in the outpatient setting upon discharge. Patient is to follow-up with nephrology along with ENT outpatient as scheduled. Total time taken is greater than 35 minutes. Hospital course This is a 82 year-old male who was recently admitted with dizziness and near syncope and was evaluated by cardiology along with nephrology and neurology. Patient with concerns of possible vertigo and uncontrolled blood pressure. Patient also was noted to have some mild urinary retention requiring indwelling Goel catheter and had acute kidney injury as well with creatinine reaching above 3 currently 1.1 today much improved and nephrology recommend low-dose Cozaar and close outpatient follow-up. Recommend follow-up labs of CBC, BMP, magnesium and next 2-3 days. Patient with weakness and continued dizziness recommending outpatient follow-up with ENT and possible vestibular rehab. Recommend meclizine as needed. Recommend continue with indwelling Goel catheter for now until more mobile and trial void in the outpatient setting. Patient has been cleared by consultations for discharge and agreeable to ECF. Patient normally resides at [facility] and follows with Dr. Cardoza in the outpatient setting. Currently no reports of chest pain, shortness of breath, or palpitations. Patient is afebrile. No reports of nausea or vomiting and patient is tolerating diet. Patient reports has not had a bowel movement in a couple days and recommend continue with as needed medications on med rec. Patient reports to passing gas. Please refer to other consultation notes for further HPI Patient will be going to [facility] today. Physical exam: Gen: This is a 82-year-old male who is awake, alert and oriented 3, hard of hearing, well-developed, well-nourished, elderly-appearing HEENT: Head is atraumatic, normocephalic. Pupils equal, round. Sclerae is anicteric. NECK: Supple. No JVD. No lymphadenopathy. No thyromegaly. LUNGS: Clear to auscultation. No wheezes or rhonchi. No intercostal retractions. HEART: Regular rate and rhythm. No murmur. ABDOMEN: Soft. Bowel sounds are present. No masses. No tenderness. EXTREMITIES: No pedal edema. No calf tenderness. NEUROLOGICAL: Patient is awake, alert and oriented x3. Cranial nerves 2 through 12 are 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. Diffusely weak Please refer to medication reconciliation sheet for a list of medications. The impression and plan of care has been dictated by Saadia Deleon, Nurse Practitioner as directed. Dr. Sunny MD I have performed a history and examination and MDM of this patient, discussed the same with the dictator, and agree with the dictator's assessment and plan as written ,documented as a scribe. Based on total visit time, I have performed more than 50% of the visit. Patient Condition at Discharge: Fair Plan - Discharge Summary Discharge Rx Participant: No New Discharge Prescriptions: New Tamsulosin [Flomax] 0.4 mg PO PC-BRKFST cap Sennosides [Senokot] 8.6 mg PO BID tab Meclizine [Antivert] 25 mg PO TID PRN #30 tab PRN Reason: Vertigo Aspirin 81 mg PO DAILY tab Losartan [Cozaar] 25 mg PO DAILY tab bisacodyL [Dulcolax] 10 mg RECTAL DAILY PRN suppositor PRN Reason: Constipation Atorvastatin [Lipitor] 40 mg PO HS tab Acetaminophen Tab [Tylenol] 650 mg PO Q6HR PRN tab PRN Reason: Mild Pain Or Fever > 100.5 Cyanocobalamin [Vitamin B-12] 1,000 mcg PO DAILY tab Continue Pantoprazole Sodium [Protonix] 40 mg PO BID Atenolol 50 mg PO BID@0800,1200 Discontinued Simvastatin [Zocor] 80 mg PO HS hydrALAZINE HCL [Apresoline] 25 mg PO BID hydroCHLOROthiazide [Hydrodiuril] 25 mg PO DAILY Losartan Potassium [Cozaar] 100 mg PO W/LUNCH Discharge Medication List Atenolol 50 mg PO BID@0800,1200 02/20/14 [History] Pantoprazole Sodium [Protonix] 40 mg PO BID 02/20/14 [History] Acetaminophen Tab [Tylenol] 650 mg PO Q6HR PRN tab 03/30/23 [Rx] Aspirin 81 mg PO DAILY tab 03/30/23 [Rx] Atorvastatin [Lipitor] 40 mg PO HS tab 03/30/23 [Rx] Cyanocobalamin [Vitamin B-12] 1,000 mcg PO DAILY tab 03/30/23 [Rx] Losartan [Cozaar] 25 mg PO DAILY tab 03/30/23 [Rx] Meclizine [Antivert] 25 mg PO TID PRN #30 tab 03/30/23 [Rx] Sennosides [Senokot] 8.6 mg PO BID tab 03/30/23 [Rx] Tamsulosin [Flomax] 0.4 mg PO PC-BRKFST cap 03/30/23 [Rx] bisacodyL [Dulcolax] 10 mg RECTAL DAILY PRN suppositor 03/30/23 [Rx] Follow up Appointment(s)/Referral(s): Olive Cardoza MD [Primary Care Provider] - 1-2 days Ambulatory/Diagnostic Orders: Basic Metabolic Panel [LAB.AMB] Location: None Selected Complete Blood Count w/diff [LAB.AMB] Time Frame: 3 Days, Location: None Selected Patient Instructions/Handouts: Syncope (DC), Carotid Artery Disease (DC) Activity/Diet/Wound Care/Special Instructions: Patient is going to [place] Activity as tolerated Recommend follow-up in the outpatient setting with ENT for possible vestibular rehab Continue with indwelling Goel catheter for now Recommend repeat labs of CBC and BMP with magnesium in 2-3 days Discharge Disposition: TRANSFER TO SNF/ECF
[2023-03-30 15:57] VITALS: BP 160/75; PULSE 78; TEMP 97.3
--- NOTE | 2023-04-02 00:27 | P.PN ---
Subjective Progress Note Date: 03/25/23 82-year-old male who presents emergency Department complaining of dizziness for a month. Patient states again progressively worse to the point where he feels like is given a passout and time. Patient states she's never passed out. Patient states he feels as though he has to grab onto something and he does and though he does not pass out he doesn't feel as though it improved his dizziness. Patient states he lies down he never occurs per patient denies any chest pain difficulty breathing shortness of breath. Patient denies any palpations. Patient has a headache patient denies numbness or weakness. Patient denies any other symptoms at this time. Patient initially thought was vertigo but says it continues he's thinking it might be something worse. Blood work completed in ED reveals a WBC of 8.7, hemoglobin of 15.3 and platelet count of 553, sodium 136, potassium 4.8, BUN/creatinine of 21/1.14, blood glucose of 105, troponin of 0.012 EKG shows a sinus rhythm at 70 bpm NM interval is 264 QRS is 91 QT interval 418 QTC is 439. Patient's EKG shows no ST segment elevation or depression. CT of the head reveals mild to moderate generalized atrophy with no acute intracranial abnormality, moderate chronic ethmoid sinus disease, fluid in bilateral mastoid air cells and right middle ear correlate for mastoiditis/otomastoiditis 1patient presented to hospital with generalized weakness and dizziness patient denies having any ataxia patient denies having any pain to the right temporal area no problem with the right ear as well as hearing or drainage patient did not have any fever or elevated white count, and patient did not have any tenderness ON examination to the temporal bone more likely CT findings are incidental finding and clinically not behaving as mastoiditis or middle ear in fection 2-Pt did have normal inflammatory markers making it unlikely to be mastoiditis 3-we will stop Vanco Rocephin and monitor pt closely off antibiotics Objective - Vital Signs Vital signs: Vital Signs Temp 98.8 F 03/25/23 11:35 Pulse 60 03/25/23 11:35 Resp 17 03/25/23 11:35 BP 175/90 03/25/23 11:35 Pulse Ox 95 03/25/23 11:35 FiO2 Intake & Output 03/24/23 03/25/23 03/25/23 18:59 06:59 18:59 Intake Total 1040 540 660 Output Total 1150 Balance -110 540 660 Weight 86.183 kg Intake: IV 250 10 .9 @ 20 240 Invasive Line 1 10 10 Intake, IV Titration 550 550 Amount Vancomycin 1,500 mg In 500 500 Sodium Chloride 0.9% 500 ml 500 ml @ 167 mls/hr IVPB Q16H [facility] Rx#: [id number] cefTRIAXone 1 gm In 50 50 Sodium Chloride 0.9% 50 ml @ 100 mls/hr IVPB Q24HR [facility] Rx#:[id number] Oral 240 540 100 Output: Urine 1150 Other: Voiding Method External Catheter External Catheter External Catheter # Bowel Movements 1 - Exam GENERAL: The patient is alert and oriented x3, not in any acute distress. Well developed, well nourished. HEENT: Pupils are round and equally reacting to light. EOMI. No scleral icterus. No conjunctival pallor. Normocephalic, atraumatic. No pharyngeal erythema. No thyromegaly. CARDIOVASCULAR: S1 and S2 present. No murmurs, rubs, or gallops. PULMONARY: Chest is clear to auscultation, no wheezing or crackles. ABDOMEN: Soft, nontender, nondistended, normoactive bowel sounds. No palpable organomegaly. MUSCULOSKELETAL: No joint swelling or deformity. EXTREMITIES: No cyanosis, clubbing, or pedal edema. NEUROLOGICAL: Gross neurological examination did not reveal any focal deficits. SKIN: No rashes. - Labs CBC & Chem 7: 03/30/23 07:27 03/30/23 07:27 Labs: Abnormal Lab Results - Last 24 Hours (Table) 03/24/23 Range/Units 08:37 Hemoglobin A1c 6.1 H (<=6.0) % Assessment and Plan Assessment: 1. Near syncope - Workup completed in ED including an EKG and CT of the brain has been unremarkable - We will consult neurology for further recommendations 2. Dizziness; etiology unclear; possible vertigo - Patient has been placed on meclizine to be used when necessary 3. Acute Mastoiditis; start patient on IV vancomycin/Rocephin; consult ID for further recommendations 4. Mild renal injury/dehydration; started slow IV fluid hydration with normal saline; monitor strict ADE's, daily weights, renal function and electrolytes; avoid nephrotoxins and hypotension 5. Hypertension; Atenolol 50 mg by mouth twice a day; hydralazine 25 mg twice a day, height her diet. ALT 25 mg daily and Cozaar 100 mg daily 6. Hyperlipidemia; Lipitor 40 mg by mouth daily at bedtime 7. Gastroesophageal reflux disease; Protonix 40 mg twice a day
--- NOTE | 2023-04-02 13:09 | P.PN ---
Subjective Progress Note Date: 03/28/23 Patient was seen for a follow-up. Patient is laying comfortably in the bed. Patient states that he sat in the chair for 2 hours. He still feels dizzy when he gets up. Patient does have significant peripheral neuropathy as well, he has high arched feet and hammertoes. This will be the cause of imbalance. He loses balance [id number]. He does not know if he passes out or falls down. Patient's renal functions have slightly got worse. Also white cells elevated. Nephrology on board. Patient's telemetry monitoring showing sinus rhythm, sinus bradycardia in the 50s with first-degree AV block. Objective - Vital Signs Vital signs: Vital Signs Temp 97.9 F 03/28/23 08:30 Pulse 88 03/28/23 11:20 Resp 18 03/28/23 11:20 BP 97/65 03/28/23 11:20 Pulse Ox 96 03/28/23 11:20 FiO2 Intake & Output 03/27/23 03/28/23 03/28/23 18:59 06:59 18:59 Intake Total 330 1000 0 Output Total 250 1650 Balance 80 1000 -1650 Intake: Intake, IV Titration 1000 Amount Sodium Chloride 0.9% 1, 1000 000 ml @ 75 mls/hr IV . [id number] COUNT INCLUDES THE [facility] Rx#:[id number] Oral 330 0 Output: Urine 250 1650 Uretheral (Goel) 700 Other: Voiding Method External Catheter External Catheter External Catheter - Exam Patient is alert and oriented 3. No aphasia. Patient is blind over the right eye. Visual medina full on the left. No facial weakness noted. On muscle strength testing, the strength is normal in the arms and legs except deltoids which are weak bilaterally from rotator cuff tear. In the lower limbs hip flexion is 4+5-bilaterally, ankle dorsiflexion is 5 bilaterally. Patient has hammertoes and high arched feet. - Labs CBC & Chem 7: 03/30/23 07:27 03/30/23 07:27 Labs: Abnormal Lab Results - Last 24 Hours (Table) 03/28/23 03/28/23 03/28/23 Range/Units 08:24 08:24 12:57 WBC 18.6 H (3.8-10.6) k/uL Plt Count 483 H (150-450) k/uL Neutrophils # 15.0 H (1.3-7.7) k/uL Monocytes # 1.8 H (0-1.0) k/uL Sodium 132 L (137-145) mmol/L Chloride 95 L (98-107) mmol/L BUN 47 H (9-20) mg/dL Creatinine 3.09 H (0.66-1.25) mg/dL Glucose 125 H (74-99) mg/dL C-Reactive Protein 4.9 H (<1.0) mg/dL Urine Blood Trace H (Negative) Ur Leukocyte Esterase Moderate H (Negative) Urine RBC 50 H (0-5) /hpf Urine WBC 24 H (0-5) /hpf Urine Bacteria Rare H (None) /hpf Assessment and Plan Assessment: * 82-year-old male with 1 month history of dizziness on standing up, like near syncopal symptoms. Patient denies any vertigo, denies any symptoms when sitting, laying or when rolling over in the bed. Orthostatics checked were negative. * Hypertension * CT head showed possibility of otomastoiditis * Probable peripheral neuropathy with evidence of high arched feet, hammer toes * Hyperlipidemia * Osteoarthritis * Acute worsening of renal functions. Plan: * Carotid Doppler revealed 50-69% stenosis of left carotid bifurcation peak systolic velocity which is borderline. Less than 50% stenosis on the right carotid bifurcation. * 2-D echo revealed moderate increased left-ventricular wall thickness, LV EF 55-60%. Mildly dilated left atrium. Mild MR. * Repeat orthostatics showed supine blood pressure 184/87, pulse rate 68, sitting 175/102 with pulse rate of 80 and standing 167/78 with pulse rate of 85. Orthostatics negative. * MRI brain showed age-related atrophic and chronic small vessel ischemic change. No acute process. I personally reviewed MRI agree with the findings. * MRA of the neck showed no significant flow limiting stenosis. * Patient does have hammertoes and high arched feet, therefore some component of imbalance and dizziness may be related to peripheral neuropathy. Patient may benefit from EMG and nerve conduction of bilateral lower limbs. * Optimize control of blood pressure. * B12 329, folate 14.9, TSH 0.69, hemoglobin A1c 6.1. Vitamin B12 level is borderline, we will start B12 replacement. * Continue Lipitor 40 mg daily. Start aspirin 81 mg daily. Patient was not on any antiplatelet medication at home. He does have multiple vascular risk factors. * CT head revealed possibility of otomastoiditis. ID input appreciated. Antibiotics discontinued. May consider ENT consult outpatient for evaluation of vestibular functions. * Patient has been mostly laying in the bed. Patient was strongly recommended to stay in the recliner at least 4-8 hours a day. This will help with improving postural reflexes. PT OT. * Patient undergoing workup by nephrology. Patient's renal function has slightly worsened with BUN 47, creatinine 3.09. * Patient may benefit from subacute rehab. Neurologically, no other workup indicated. Neurologically clear. We will sign off.
== END 2023-03-30 17:36 | DRG 312 ==
LOC: EC 10:29 → 3SCARD 13:23
PROVIDERS: ADMIT Hospitalist; ATTEND Hospitalist
DX: R55 Syncope and collapse (principal); N17.0 Acute kidney failure with tubular necrosis; E87.1 Hypo-osmolality and hyponatremia; J98.11 Atelectasis; H70.003 Acute mastoiditis without complications, bilateral; R42 Dizziness and giddiness; E78.5 Hyperlipidemia, unspecified; D72.829 Elevated white blood cell count, unspecified; E86.0 Dehydration; R33.9 Retention of urine, unspecified; M10.9 Gout, unspecified; E86.1 Hypovolemia; Z87.891 Personal history of nicotine dependence; H91.90 Unspecified hearing loss, unspecified ear; R26.9 Unspecified abnormalities of gait and mobility; I34.0 Nonrheumatic mitral (valve) insufficiency; I10 Essential (primary) hypertension; I44.0 Atrioventricular block, first degree; I65.22 Occlusion and stenosis of left carotid artery; J32.2 Chronic ethmoidal sinusitis; J43.9 Emphysema, unspecified; K21.9 Gastro-esophageal reflux disease without esophagitis; K59.00 Constipation, unspecified; M19.90 Unspecified osteoarthritis, unspecified site; M20.40 Other hammer toe(s) (acquired), unspecified foot; Z79.899 Other long term (current) drug therapy; Z85.46 Personal history of malignant neoplasm of prostate
CPT/HCPCS: 36415; 70450; 70547; 70553; 71045; 71046; 76770; 80048; 80053; 81001; 82565; 82607; 82746; 83036; 83735; 83880; 84145; 84443; 84484; 85025; 85610; 85652; 85730; 86140; 87205; 93005; 93306; 93880; 94760; 99285